=== PATIENT | female | born 1965 | race Caucasian/White ===

== ENCOUNTER 2016-03-22 10:00 | Emergency (ER) | payer MEDICAID ==
[~2016-03-22] VITALS: Ht 162.6 cm; Wt 90.7 kg
[2016-03-22 10:33] VITALS: BP 125/80
== END 2016-03-22 10:56 | disposition home or self-care (01) ==
LOC: ER 10:00
DX: J20.9 Acute bronchitis, unspecified (principal); M54.9 Dorsalgia, unspecified; G89.29 Other chronic pain; J45.909 Unspecified asthma, uncomplicated; F11.10 Opioid abuse, uncomplicated; F15.10 Other stimulant abuse, uncomplicated; F17.210 Nicotine dependence, cigarettes, uncomplicated; Z87.442 Personal history of urinary calculi

== ENCOUNTER 2016-05-10 11:27 | Inpatient (IN) | payer MEDICAID ==
[~2016-05-10] VITALS: Ht 157.5 cm; Wt 92.3 kg
[2016-05-10] MEDS ORDERED: SODIUM CHLORIDE 0.9% 500 ML IVB ONE (11:46)
[2016-05-10] MEDS ORDERED: PANTOPRAZOLE SODIUM 40 MG/10 ML VIAL IV STA (11:46)
[2016-05-10] MEDS ORDERED: PROCHLORPERAZINE EDISYLATE 5 MG/ML 2ML VIAL IV ONE (12:00)
[2016-05-10] MEDS ORDERED: MORPHINE SULFATE 4 MG/ML SYRG IV ONE (12:00)
[2016-05-10] MEDS ORDERED: SODIUM CHLORIDE 0.9% 1,000 ML IV ONE (13:30)
[2016-05-10 13:40] LABS: Basophils # (auto) 0 uL; Eosinophils # (auto) 0 uL; Hematocrit 52.6 % (36.0-46.0); Hemoglobin 17.2 g/dL (12.2-16.2); Lymphocytes # (auto) 0.8 uL; Lymphocytes % (auto) 6.2 % (10.0-50.0); Mean Corpuscular Hemoglobin 29.8 pg (28.0-32.0); Mean Corpuscular Hgb Conc. 32.7 g/dL (32.0-36.0); Mean Corpuscular Volume 91.3 fL (80.0-100.0); Mean Platelet Volume 7.8 fL (7.4-10.4); Monocytes # (auto) 0.3 uL; Monocytes % (auto) 2.4 % (0.0-12.0); Neutrophils # (auto) 11.2 uL; Neutrophils % (auto) 91.4 % (37.0-80.0); Platelet Count (auto) 253 10^3/uL (140-450); Red Cell Distribution Width 13.8 % (11.6-16.0); White Blood Cell 12.3 10^3/uL (4.4-10.8)
[2016-05-10 14:48] LABS: Urine Color Yellow (Yellow); Urine Glucose Normal (Normal); Urine Mucus FEW (None Seen); Urine Nitrite Negative (Negative); Urine RBC 3 /hpf (0 - 4); Urine Squamous Epithelial Cell FEW /hpf (<5)
[2016-05-10 15:02] LABS: Urine Blood 1+ /uL (Negative); Urine Ketone 2+ (Negative)
[2016-05-10 15:03] LABS: Urine Bilirubin POSITIVE (Negative)
[2016-05-10 15:10] LABS: BUN/Creatinine Ratio 16.8; Calcium 9.9 mg/dL (8.5-10.1); Potassium 3.4 mmol/L (3.5-5.1)
[2016-05-10 15:21] LABS: Bilirubin, Total 0.3 mg/dL (0.2-1.0); Total Protein 8.5 g/dL (6.4-8.2)
[2016-05-10] MEDS ORDERED: DEXTROSE (50%) 50ML SYRG IV PRN (15:45)
[2016-05-10] MEDS ORDERED: cloNIDine HCL 0.1 MG TAB PO PRN (15:45)
[2016-05-10] MEDS ORDERED: POTASSIUM CHL 10 Meq TABLET PO ONE (15:45)
[2016-05-10] MEDS ORDERED: cefTRIAXone 1GM/50ML D5W 50 ML IV ONE (15:45)
[2016-05-10] MEDS ORDERED: metroNIDAZOLE 500MG/100ML 100 ML IV ONE (15:45)
[2016-05-10] MEDS ORDERED: NITROGLYCERIN 0.4 MG SL TAB SL PRN (16:00)
[2016-05-10] MEDS ORDERED: MORPHINE SULF INJ 2 MG/ML SYRINGE 1ML IV PRN (16:00)
[2016-05-10] MEDS ORDERED: ACETAMINOPHEN 325 MG TAB PO PRN (16:00)
[2016-05-10] MEDS ORDERED: TEMAZEPAM 15 MG CAP PO PRN (16:00)
[2016-05-10 16:35] VITALS: BP 146/87
[2016-05-10] MEDS: MULTIPLE VITAMIN TAB PO SCH (16:52)
[2016-05-10] MEDS: METOPROLOL SUCCINATE XL 50 MG TAB PO SCH (16:52)
[2016-05-10] MEDS: SODIUM CHLORIDE 0.9% 1,000 ML IV SCH (16:53)
[2016-05-10] MEDS: ACCU-CHEK COMFORT CURVE STRIP VI SCH ×2 (16:53→22:00)
[2016-05-10] MEDS: InsuLIN REG 1unit/0.01ml Soln (100units/ml) SC SCH ×2 (16:54→22:00)
[2016-05-10] MEDS: MORPHINE SULF INJ 2 MG/ML SYRINGE 1ML IV PRN ×2 (17:10→22:59)
[2016-05-10] MEDS: ONDANSETRON HCL 4 MG/2 ML VIAL IV PRN ×2 (17:19→22:59)
[2016-05-10 17:22] VITALS: BP 146/87
[2016-05-10] MEDS ORDERED: MELA3TAB27 PO (18:55)
[2016-05-10] MEDS ORDERED: PAR20T PO (18:55)
[2016-05-10] MEDS ORDERED: METO25TA5 PO (18:55)
[2016-05-10] MEDS ORDERED: DIPH1TAB30 PO (18:55)
[2016-05-10] MEDS: ALBUTEROL SULF 2.5 MG/0.5ML(0.5%) NEB SOLN NEB SCH (19:55)
[2016-05-10 20:00] VITALS: BP 146/87
[2016-05-10 21:41] VITALS: BP 103/68
[2016-05-10] MEDS: metroNIDAZOLE 500MG/100ML 100 ML IV SCH (22:46)
[2016-05-10] MEDS: PARoxetine 20 MG TAB PO SCH (22:46)
[2016-05-11 05:12] VITALS: BP 136/80
[2016-05-11 06:17] LABS: Basophils # (auto) 0 uL; Basophils % (auto) 0.3 % (0.0-2.0); Eosinophils # (auto) 0 uL; Eosinophils % (auto) 0.1 % (0.0-7.0); Hematocrit 45.3 % (36.0-46.0); Hemoglobin 15.2 g/dL (12.2-16.2); Lymphocytes # (auto) 2.1 uL; Lymphocytes % (auto) 17.5 % (10.0-50.0); Mean Corpuscular Hemoglobin 30.3 pg (28.0-32.0); Mean Corpuscular Hgb Conc. 33.6 g/dL (32.0-36.0); Mean Corpuscular Volume 90.3 fL (80.0-100.0); Mean Platelet Volume 7.6 fL (7.4-10.4); Monocytes # (auto) 0.7 uL; Monocytes % (auto) 5.8 % (0.0-12.0); Neutrophils # (auto) 9.3 uL; Neutrophils % (auto) 76.3 % (37.0-80.0); Platelet Count (auto) 301 10^3/uL (140-450); Red Cell Distribution Width 14.5 % (11.6-16.0); White Blood Cell 12.2 10^3/uL (4.4-10.8)
[2016-05-11] MEDS: ALBUTEROL SULF 2.5 MG/0.5ML(0.5%) NEB SOLN NEB SCH ×3 (06:17→19:35)
[2016-05-11] MEDS: SODIUM CHLORIDE 0.9% 1,000 ML IV SCH ×3 (06:20→17:01)
[2016-05-11 06:26] LABS: Albumin 3.2 g/dL (3.4-5.0); Calcium 8.2 mg/dL (8.5-10.1); Potassium 3.2 mmol/L (3.5-5.1)
[2016-05-11 06:28] LABS: BUN/Creatinine Ratio 13.8
[2016-05-11 06:31] LABS: Bilirubin, Total 0.4 mg/dL (0.2-1.0); Total Protein 6.7 g/dL (6.4-8.2)
[2016-05-11] MEDS: ACCU-CHEK COMFORT CURVE STRIP VI SCH ×4 (06:38→22:28)
[2016-05-11] MEDS: metroNIDAZOLE 500MG/100ML 100 ML IV SCH ×3 (06:38→22:27)
[2016-05-11] MEDS: MORPHINE SULF INJ 2 MG/ML SYRINGE 1ML IV PRN ×3 (06:38→22:26)
[2016-05-11] MEDS: InsuLIN REG 1unit/0.01ml Soln (100units/ml) SC SCH ×4 (06:38→22:00)
[2016-05-11] MEDS: ONDANSETRON HCL 4 MG/2 ML VIAL IV PRN ×3 (06:38→22:26)
[2016-05-11] MEDS: HYDROcodone-ACET 10/325MG TAB PO PRN ×2 (08:25→14:55)
[2016-05-11 09:00] VITALS: BP 144/83
[2016-05-11] MEDS: METOPROLOL SUCCINATE XL 50 MG TAB PO SCH (09:48)
[2016-05-11] MEDS: FAMOTIDINE 20 MG TAB PO SCH ×2 (09:48→22:27)
[2016-05-11] MEDS: MULTIPLE VITAMIN TAB PO SCH (09:48)
[2016-05-11] MEDS: PARoxetine 20 MG TAB PO SCH ×2 (09:48→22:27)
[2016-05-11] MEDS: cefTRIAXone 1GM/50ML D5W 50 ML IV SCH (09:49)
[2016-05-11 13:00] VITALS: BP 116/86
[2016-05-11] MEDS ORDERED: POTASSIUM CHL 20 Meq TABLET PO ONE (13:00)
[2016-05-11] MEDS: DIPHENOXYLATE W/ATROPINE 2.5 MG TAB PO PRN (13:13)
[2016-05-11 17:00] VITALS: BP 109/69
[2016-05-11] MEDS: Boost Glucose Control 8 Ounces PO SCH (18:15)
[2016-05-11 20:00] VITALS: BP 108/65
[2016-05-11 22:21] VITALS: BP 108/65
[2016-05-12] MEDS: SODIUM CHLORIDE 0.9% 1,000 ML IV SCH ×3 (01:06→17:46)
[2016-05-12] MEDS: DIPHENOXYLATE W/ATROPINE 2.5 MG TAB PO PRN ×2 (01:13→10:17)
[2016-05-12 05:25] LABS: Basophils # (auto) 0 uL; Basophils % (auto) 0.4 % (0.0-2.0); Eosinophils # (auto) 0 uL; Eosinophils % (auto) 0.5 % (0.0-7.0); Hematocrit 40.6 % (36.0-46.0); Hemoglobin 13.6 g/dL (12.2-16.2); Lymphocytes # (auto) 2.2 uL; Lymphocytes % (auto) 28.8 % (10.0-50.0); Mean Corpuscular Hemoglobin 30.2 pg (28.0-32.0); Mean Corpuscular Hgb Conc. 33.5 g/dL (32.0-36.0); Mean Corpuscular Volume 90.1 fL (80.0-100.0); Mean Platelet Volume 7.3 fL (7.4-10.4); Monocytes # (auto) 0.5 uL; Monocytes % (auto) 6.6 % (0.0-12.0); Neutrophils # (auto) 4.8 uL; Neutrophils % (auto) 63.7 % (37.0-80.0); Platelet Count (auto) 237 10^3/uL (140-450); Red Cell Distribution Width 14.3 % (11.6-16.0); White Blood Cell 7.6 10^3/uL (4.4-10.8)
[2016-05-12 05:40] LABS: Albumin 2.8 g/dL (3.4-5.0); Potassium 3.8 mmol/L (3.5-5.1)
[2016-05-12 05:43] LABS: Bilirubin, Total 0.3 mg/dL (0.2-1.0); Total Protein 5.7 g/dL (6.4-8.2)
[2016-05-12] MEDS: metroNIDAZOLE 500MG/100ML 100 ML IV SCH ×3 (06:15→20:35)
[2016-05-12] MEDS: InsuLIN REG 1unit/0.01ml Soln (100units/ml) SC SCH ×4 (07:00→20:35)
[2016-05-12] MEDS: ACCU-CHEK COMFORT CURVE STRIP VI SCH ×4 (07:04→20:35)
[2016-05-12] MEDS: ALBUTEROL SULF 2.5 MG/0.5ML(0.5%) NEB SOLN NEB SCH ×4 (07:25→19:41)
[2016-05-12] MEDS: Boost Glucose Control 8 Ounces PO SCH ×3 (08:00→18:03)
[2016-05-12 09:00] VITALS: BP 97/60
[2016-05-12] MEDS: cefTRIAXone 1GM/50ML D5W 50 ML IV SCH (09:00)
[2016-05-12] MEDS: METOPROLOL SUCCINATE XL 50 MG TAB PO SCH (10:00)
[2016-05-12] MEDS: HYDROcodone-ACET 10/325MG TAB PO PRN ×3 (10:13→21:56)
[2016-05-12] MEDS: MULTIPLE VITAMIN TAB PO SCH (10:13)
[2016-05-12] MEDS: PARoxetine 20 MG TAB PO SCH ×2 (10:13→20:35)
[2016-05-12] MEDS: FAMOTIDINE 20 MG TAB PO SCH ×2 (10:14→20:35)
[2016-05-12 13:00] VITALS: BP 96/61
[2016-05-12 17:00] VITALS: BP 99/68
[2016-05-12 20:00] VITALS: BP 97/60
[2016-05-12 22:20] VITALS: BP 111/58
[2016-05-12 22:24] VITALS: BP 106/69
[2016-05-13] MEDS: SODIUM CHLORIDE 0.9% 1,000 ML IV SCH ×3 (02:06→10:26)
[2016-05-13] MEDS: metroNIDAZOLE 500MG/100ML 100 ML IV SCH ×2 (05:20→13:26)
[2016-05-13] MEDS: HYDROcodone-ACET 10/325MG TAB PO PRN ×2 (05:24→11:30)
[2016-05-13] MEDS: ACCU-CHEK COMFORT CURVE STRIP VI SCH ×2 (05:27→11:30)
[2016-05-13] MEDS: InsuLIN REG 1unit/0.01ml Soln (100units/ml) SC SCH ×2 (05:27→11:30)
[2016-05-13 05:31] VITALS: BP 116/69
[2016-05-13 05:35] LABS: Hemoglobin 14.4 g/dL (12.2-16.2)
[2016-05-13 05:45] LABS: Basophils # (auto) 0 uL; Basophils % (auto) 0.4 % (0.0-2.0); Eosinophils # (auto) 0.1 uL; Eosinophils % (auto) 1.9 % (0.0-7.0); Hematocrit 43.3 % (36.0-46.0); Lymphocytes % (auto) 26.7 % (10.0-50.0); Mean Corpuscular Hemoglobin 30.2 pg (28.0-32.0); Mean Corpuscular Hgb Conc. 33.2 g/dL (32.0-36.0); Mean Corpuscular Volume 90.9 fL (80.0-100.0); Mean Platelet Volume 7.4 fL (7.4-10.4); Monocytes # (auto) 0.5 uL; Monocytes % (auto) 6.4 % (0.0-12.0); Neutrophils # (auto) 4.8 uL; Neutrophils % (auto) 64.6 % (37.0-80.0); Platelet Count (auto) 233 10^3/uL (140-450); Red Cell Distribution Width 14.2 % (11.6-16.0); White Blood Cell 7.4 10^3/uL (4.4-10.8)
[2016-05-13 05:49] LABS: INR 1.1 (0.9-1.15); Prothrombin Time 11.3 sec (9.37-12.3)
[2016-05-13] MEDS: ALBUTEROL SULF 2.5 MG/0.5ML(0.5%) NEB SOLN NEB SCH ×2 (06:00→10:14)
[2016-05-13 06:18] LABS: BUN/Creatinine Ratio 6.1; Bilirubin, Total 0.4 mg/dL (0.2-1.0); Calcium 8.7 mg/dL (8.5-10.1); Magnesium 2.2 mg/dL (1.6-2.6); Potassium 3.5 mmol/L (3.5-5.1)
[2016-05-13 08:00] VITALS: BP 140/81
[2016-05-13] MEDS: Boost Glucose Control 8 Ounces PO SCH ×2 (08:00→11:30)
[2016-05-13 09:00] VITALS: BP 140/81
[2016-05-13] MEDS: cefTRIAXone 1GM/50ML D5W 50 ML IV SCH (09:06)
[2016-05-13] MEDS: FAMOTIDINE 20 MG TAB PO SCH (09:06)
[2016-05-13] MEDS: MULTIPLE VITAMIN TAB PO SCH (09:06)
[2016-05-13] MEDS: PARoxetine 20 MG TAB PO SCH (09:07)
[2016-05-13] MEDS: METOPROLOL SUCCINATE XL 50 MG TAB PO SCH (09:07)
[2016-05-13 13:00] VITALS: BP 126/82
[2016-05-13 16:39] VITALS: BP 140/81
[2016-05-13 17:00] VITALS: BP 118/78
== END 2016-05-13 18:17 | disposition home or self-care (01) | DRG 249 ==
LOC: ER 11:27 → EDBD 11:27 → TELE 11:28 → TELE-WESTW 16:42
PROVIDERS: ADMIT Internal Medicine; ATTEND Internal Medicine
DX: K52.9 Noninfective gastroenteritis and colitis, unspecified (principal); E46 Unspecified protein-calorie malnutrition; N20.0 Calculus of kidney; D75.1 Secondary polycythemia; J44.9 Chronic obstructive pulmonary disease, unspecified; E86.0 Dehydration; I12.9 Hypertensive chronic kidney disease with stage 1 through stage 4 chronic kidney disease, or unspecified chronic kidney disease; F32.9 Major depressive disorder, single episode, unspecified; R73.9 Hyperglycemia, unspecified; N18.2 Chronic kidney disease, stage 2 (mild); K57.30 Diverticulosis of large intestine without perforation or abscess without bleeding; E87.6 Hypokalemia; F17.210 Nicotine dependence, cigarettes, uncomplicated; J45.909 Unspecified asthma, uncomplicated; F15.90 Other stimulant use, unspecified, uncomplicated; Z90.49 Acquired absence of other specified parts of digestive tract; Z88.2 Allergy status to sulfonamides; Z90.710 Acquired absence of both cervix and uterus; Z90.5 Acquired absence of kidney; Z68.37 Body mass index [BMI] 37.0-37.9, adult
CPT/HCPCS: 36415; 71010; 71250; 74176; 80053; 80320; 81001; 82150; 82962; 83036; 83690; 83735; 85025; 85610; 87045; 87081; 87493; 87899; 93005; 94640; 96361; 96365; 96368; 96375; C9113; G0434; J0696; J1815; J2405; J3490

== ENCOUNTER 2016-09-06 17:56 | Emergency (ER) | payer MEDICAID ==
[~2016-09-06] VITALS: Ht 160 cm; Wt 86.2 kg
[~2016-09-06 17:56] MED LIST: DIPH1TAB30 PO; MELA3TAB27 PO; METO25TA5 PO; PAR20T PO
[2016-09-06] MEDS ORDERED: KETOROLAC TROMETH 60MG/2ML VIAL IM ONE (20:15)
[2016-09-06] MEDS ORDERED: HYDROcodone-ACET 10/325MG TAB PO ONE (20:15)
[2016-09-06 21:05] VITALS: BP 128/80
== END 2016-09-06 21:10 | disposition home or self-care (01) ==
LOC: EDBD 17:56 → ER 18:14
DX: G89.29 Other chronic pain (principal); M54.2 Cervicalgia; J44.9 Chronic obstructive pulmonary disease, unspecified; F17.210 Nicotine dependence, cigarettes, uncomplicated; F11.10 Opioid abuse, uncomplicated; F15.10 Other stimulant abuse, uncomplicated; Z88.2 Allergy status to sulfonamides
CPT/HCPCS: 96372; 99283; J1885

== ENCOUNTER 2017-02-09 12:46 | Emergency (ER) | payer MEDICAID ==
[~2017-02-09] VITALS: Ht 162.6 cm; Wt 90.7 kg
[2017-02-09 13:13] LABS: Urine Bilirubin Negative (Negative); Urine Blood Negative /uL (Negative); Urine Color Yellow (Yellow); Urine Glucose Normal (Normal); Urine Ketone Negative (Negative); Urine Nitrite Negative (Negative); Urine Urobilinogen Normal (Negative); Urine pH 5.5 (5.0-8.0)
[2017-02-09 13:24] LABS: Urine Mucus FEW (None Seen); Urine RBC 1 /hpf (0 - 4); Urine Squamous Epithelial Cell MODERATE /hpf (<5)
[2017-02-09 13:45] LABS: Basophils # (auto) 0 uL; Basophils % (auto) 0.3 % (0.0-2.0); Eosinophils # (auto) 0.2 uL; Hematocrit 48.3 % (36.0-46.0); Hemoglobin 16.7 g/dL (12.2-16.2); Lymphocytes # (auto) 2.6 uL; Lymphocytes % (auto) 31.3 % (10.0-50.0); Mean Corpuscular Hemoglobin 31.6 pg (28.0-32.0); Mean Corpuscular Hgb Conc. 34.6 g/dL (32.0-36.0); Mean Corpuscular Volume 91.5 fL (80.0-100.0); Mean Platelet Volume 7.5 fL (6.9-10.8); Monocytes # (auto) 0.5 uL; Monocytes % (auto) 6.2 % (0.0-12.0); Neutrophils # (auto) 5.1 uL; Neutrophils % (auto) 60.2 % (37.0-80.0); Nucleated Red Blood Cells % 0.1 %; Platelet Count (auto) 231 10^3/uL (140-450); White Blood Cell 8.4 10^3/uL (4.4-10.8)
[2017-02-09 13:58] LABS: Albumin 3.8 g/dL (3.4-5.0); BUN/Creatinine Ratio 13.4; Bilirubin, Total 0.3 mg/dL (0.2-1.0); Calcium 8.9 mg/dL (8.5-10.1); Potassium 3.9 mmol/L (3.5-5.1); Total Protein 7.7 g/dL (6.4-8.2)
[2017-02-09] MEDS ORDERED: SODIUM CHLORIDE 0.9% 1,000 ML IVB ONE (15:01)
[2017-02-09] MEDS ORDERED: ONDANSETRON HCL 4 MG/2 ML VIAL IV ONE (15:15)
[2017-02-09] MEDS ORDERED: KETOROLAC TROMETH 30 MG/ML 1ML VIAL IV ONE (15:15)
[2017-02-09 15:27] LABS: Amylase 64 U/L (25-115)
[2017-02-09 17:02] VITALS: BP 122/85
== END 2017-02-09 17:31 | disposition home or self-care (01) ==
LOC: ER 12:46
DX: R10.32 Left lower quadrant pain (principal); R19.7 Diarrhea, unspecified; R11.0 Nausea; J44.9 Chronic obstructive pulmonary disease, unspecified; F17.210 Nicotine dependence, cigarettes, uncomplicated; Z88.1 Allergy status to other antibiotic agents; Z87.442 Personal history of urinary calculi; Z90.49 Acquired absence of other specified parts of digestive tract; Z90.710 Acquired absence of both cervix and uterus; Z88.2 Allergy status to sulfonamides
CPT/HCPCS: 36415; 74176; 80053; 81001; 82150; 83690; 85025; 94761; 96374; 96375; 99285; J1885; J2405; J7030

== ENCOUNTER 2017-06-09 13:21 | Emergency (ER) | payer MEDICAID, OTHER ==
[~2017-06-09] VITALS: Ht 165.1 cm; Wt 90.7 kg
[2017-06-09 13:47] LABS: Basophils # (auto) 0 uL; Basophils % (auto) 0.6 % (0.0-2.0); Eosinophils # (auto) 0.2 uL; Eosinophils % (auto) 1.9 % (0.0-7.0); Hematocrit 45.1 % (36.0-46.0); Hemoglobin 15.4 g/dL (12.2-16.2); Lymphocytes # (auto) 2.4 uL; Lymphocytes % (auto) 28.2 % (10.0-50.0); Mean Corpuscular Hemoglobin 30.6 pg (28.0-32.0); Mean Corpuscular Hgb Conc. 34.1 g/dL (32.0-36.0); Mean Corpuscular Volume 89.7 fL (80.0-100.0); Monocytes # (auto) 0.5 uL; Monocytes % (auto) 5.6 % (0.0-12.0); Neutrophils # (auto) 5.3 uL; Neutrophils % (auto) 63.7 % (37.0-80.0); Nucleated Red Blood Cells % 0.2 %; Platelet Count (auto) 215 10^3/uL (140-450); Red Blood Cells 5.03 10^6/uL (4.0-5.20); White Blood Cell 8.4 10^3/uL (4.4-10.8)
[2017-06-09 14:11] LABS: Alanine Aminotransferase 35 U/L (13-56); Albumin 3.7 g/dL (3.4-5.0); Alkaline Phosphatase 79 U/L (45-117); Anion Gap 7 (5-15); Aspartate Aminotransferase 19 U/L (15-37); BUN/Creatinine Ratio 10.9; Bilirubin, Total 0.3 mg/dL (0.2-1.0); Blood Alcohol < 3.0 mg/dL (0-5); Blood Urea Nitrogen 11 mg/dL (7-18); Carbon Dioxide 25 mmol/L (21-32); Chloride 108 mmol/L (98-107); GFR African American 75 mL/min; GFR Non-African American 62 mL/min; Glucose 93 mg/dL (74-106); Potassium 4.2 mmol/L (3.5-5.1); Sodium 140 mmol/L (136-145); Total Protein 7.1 g/dL (6.4-8.2)
[2017-06-09 14:13] LABS: Acetaminophen 6.7 ug/mL (10-30); Salicylate 3.9 mg/dL (2.8-20.0)
[2017-06-10 08:13] LABS: Urine Bacteria FEW /hpf (None Seen); Urine Blood Negative /uL (Negative); Urine Mucus FEW (None Seen); Urine Specific Gravity 1.024 (1.001-1.035); Urine WBC 4 /hpf (0 - 5)
[2017-06-10 08:24] LABS: Alcohol, Urine < 3.0 mg/dL (0-5); Amphetamine Screen, Urine POSITIVE (NEGATIVE); Barbiturate Scree,Urine NEGATIVE (NEGATIVE); Benzodiazephine Screen, Urine NEGATIVE (NEGATIVE); Cannabinoid Screen, Urine NEGATIVE (NEGATIVE); Cocaine Screen, Urine NEGATIVE (NEGATIVE); Opiate Scree,Urine NEGATIVE (NEGATIVE); Phencyclidine Screen, Urine NEGATIVE (NEGATIVE)
[2017-06-11] MEDS ORDERED: diphenhdrAMINE HCL 25 MG CAP PO ONE (09:00)
[2017-06-11] MEDS: PARoxetine 20 MG TAB PO SCH (22:50)
[2017-06-12] MEDS ORDERED: ACETAMINOPHEN 500 MG TAB PO ONE (09:45)
[2017-06-12] MEDS: PARoxetine 20 MG TAB PO SCH ×2 (09:51→21:47)
[2017-06-12] MEDS: METOPROLOL SUCCINATE XL 50 MG TAB PO SCH ×2 (09:52→09:53)
[2017-06-12] MEDS ORDERED: PARoxetine 20 MG TAB ONE (21:36)
[2017-06-12 23:45] VITALS: BP 102/65
== END 2017-06-13 00:05 | disposition short-term general hospital (02) ==
LOC: EDBD 13:21 → ER 13:21
DX: R45.851 Suicidal ideations (principal); F15.10 Other stimulant abuse, uncomplicated; J44.9 Chronic obstructive pulmonary disease, unspecified; F41.9 Anxiety disorder, unspecified; F20.9 Schizophrenia, unspecified; F17.210 Nicotine dependence, cigarettes, uncomplicated; F12.10 Cannabis abuse, uncomplicated; Z90.49 Acquired absence of other specified parts of digestive tract; Z90.710 Acquired absence of both cervix and uterus; Z90.89 Acquired absence of other organs
CPT/HCPCS: 36415; 71046; 80053; 80307; 80320; 80329; 81001; 85025; 93005

== ENCOUNTER 2017-06-18 09:23 | Emergency (ER) | payer OTHER ==
[~2017-06-18] VITALS: Ht 160 cm; Wt 86.2 kg
[2017-06-18 11:00] VITALS: BP 139/98
[2017-06-18] MEDS ORDERED: LORazepam 0.5 MG TAB PO ONE (11:00)
== END 2017-06-18 11:32 | disposition home or self-care (01) ==
LOC: EDBD 09:23 → ER 09:23
DX: F41.9 Anxiety disorder, unspecified (principal); J44.9 Chronic obstructive pulmonary disease, unspecified; F17.210 Nicotine dependence, cigarettes, uncomplicated; F12.10 Cannabis abuse, uncomplicated; F15.10 Other stimulant abuse, uncomplicated; Z90.49 Acquired absence of other specified parts of digestive tract; Z90.89 Acquired absence of other organs; Z90.710 Acquired absence of both cervix and uterus; Z88.2 Allergy status to sulfonamides
CPT/HCPCS: 71046; 94761

== ENCOUNTER → 2017-10-19 | Outpatient (CLI) | payer MEDICAID, OTHER ==
[~2017-10-19] VITALS: Ht 160 cm; Wt 86.6 kg
[~2017-10-19] MED LIST changes: +ACET-6 PO; +ALBU1AER4 IN; +DIPH2.5T73 PO; +FURO20TA3 PO; +MIRT30TA OR; +MULT-228 PO; +RISP1TAB63 PO
[2017-10-19 09:59] LABS: Basophils # (auto) 0.1 uL; Basophils % (auto) 0.7 % (0.0-2.0); Eosinophils # (auto) 0.2 uL; Eosinophils % (auto) 2.7 % (0.0-7.0); Hematocrit 48.9 % (36.0-46.0); Hemoglobin 16.5 g/dL (12.2-16.2); Lymphocytes # (auto) 2.2 uL; Lymphocytes % (auto) 27.9 % (10.0-50.0); Mean Corpuscular Hemoglobin 30.4 pg (28.0-32.0); Mean Corpuscular Hgb Conc. 33.8 g/dL (32.0-36.0); Mean Corpuscular Volume 89.9 fL (80.0-100.0); Monocytes # (auto) 0.5 uL; Neutrophils # (auto) 4.9 uL; Neutrophils % (auto) 62.7 % (37.0-80.0); Nucleated Red Blood Cells % 0.1 %; Platelet Count (auto) 219 10^3/uL (140-450); Red Blood Cells 5.44 10^6/uL (4.0-5.20); Red Cell Distribution Width 13.6 % (11.8-14.3); White Blood Cell 7.8 10^3/uL (4.4-10.8)
[2017-10-19 10:02] LABS: Urine Bacteria FEW /hpf (None Seen); Urine Blood Negative /uL (Negative); Urine Mucus FEW (None Seen); Urine Specific Gravity 1.008 (1.001-1.035); Urine WBC 1 /hpf (0 - 5)
[2017-10-19 10:13] LABS: INR 0.9 (0.9-1.15); Partial Thromboplastin Time 25.2 sec (23.78-33.04); Prothrombin Time 9.7 sec (9.27-12.13)
[2017-10-19 10:14] LABS: Albumin 3.7 g/dL (3.4-5.0); BUN/Creatinine Ratio 19.2; Calcium 9.1 mg/dL (8.5-10.1); Potassium 4.1 mmol/L (3.5-5.1)
[2017-10-19 10:17] LABS: Bilirubin, Total 0.3 mg/dL (0.2-1.0); Total Protein 7.7 g/dL (6.4-8.2)
== END | disposition home or self-care (01) ==
LOC: LAB 08:00 → EDSTATUS 10-23 10:45
PROVIDERS: ATTEND Internal Medicine Gastroenterology
DX: R19.7 Diarrhea, unspecified (principal); R10.32 Left lower quadrant pain
CPT/HCPCS: 36415; 80053; 81001; 84702; 85025; 85610; 85730

== ENCOUNTER 2018-09-08 09:07 | Emergency (ER) | payer MEDICAID ==
[~2018-09-08] VITALS: Ht 165.1 cm; Wt 101.6 kg
[~2018-09-08 09:07] MED LIST changes: -DIPH1TAB30 PO; -MELA3TAB27 PO; -PAR20T PO
[2018-09-08 09:15] VITALS: BP 118/76
== END 2018-09-08 11:18 | disposition home or self-care (01) ==
LOC: ER 09:10
DX: N39.0 Urinary tract infection, site not specified (principal); K76.0 Fatty (change of) liver, not elsewhere classified; K57.30 Diverticulosis of large intestine without perforation or abscess without bleeding; Z88.2 Allergy status to sulfonamides; Z79.899 Other long term (current) drug therapy
CPT/HCPCS: 74176; 81002; 81025

== ENCOUNTER 2019-01-20 07:34 | Inpatient (IN) | payer MEDICAID ==
[~2019-01-20] VITALS: Ht 160 cm; Wt 97.5 kg
[2019-01-20] MEDS ORDERED: IPRATROPIUM BROM 0.5 MG/2.5ML INH SOL NEB ONE (08:15)
[2019-01-20] MEDS ORDERED: ALBUTEROL SULF 2.5 MG/0.5ML(0.5%) NEB SOLN NEB ONE (08:15)
[2019-01-20] MEDS ORDERED: SODIUM CHLORIDE 0.9% 500 ML IVB ONE (08:32)
[2019-01-20] MEDS ORDERED: SODIUM CHLORIDE 0.9% 1,000 ML IV ONE (08:32)
[2019-01-20 08:55] LABS: White Blood Cell 12.2 10^3/uL (4.4-10.8)
[2019-01-20 08:57] LABS: Hematocrit 53.6 % (36.0-46.0); Hemoglobin 18.5 g/dL (12.2-16.2); Mean Corpuscular Hemoglobin 31.8 pg (28.0-32.0); Mean Corpuscular Hgb Conc. 34.6 g/dL (32.0-36.0); Platelet Count (auto) 229 10^3/uL (140-450); Red Blood Cells 5.83 10^6/uL (4.0-5.20); Red Cell Distribution Width 15.9 % (11.8-14.3)
[2019-01-20 09:04] LABS: Basophils % (manual) 0 (0.0-2.0); Blast Cells 0; Eosinophils % (manual) 0 (0-7); Myelocytes % 0; Promyelocytes % 0; Reactive Lymphocytes 0
[2019-01-20 09:23] LABS: Albumin 3.5 g/dL (3.4-5.0); BUN/Creatinine Ratio 27.6; Bilirubin, Total 0.4 mg/dL (0.2-1.0); Calcium 8.8 mg/dL (8.5-10.1); Magnesium 2.6 mg/dL (1.6-2.6); Potassium 5.3 mmol/L (3.5-5.1); Total Protein 7.4 g/dL (6.4-8.2)
[2019-01-20 11:11] LABS: Acetaminophen < 2.0 ug/mL (10-30); Salicylate 6.3 mg/dL (2.8-20.0)
[2019-01-20 13:04] LABS: Band Neutrophils % (manual) 2; Lymphocytes % (manual) 10 (10.0-50.0); Metamyelocytes % 2; Monocytes % (manual) 10 (0-12)
[2019-01-20 13:32] LABS: Urine Bacteria FEW /hpf (None Seen); Urine Blood Negative /uL (Negative); Urine Specific Gravity 1.012 (1.001-1.035); Urine WBC 2 /hpf (0 - 5)
[2019-01-20 13:55] LABS: Alcohol, Urine < 3.0 mg/dL (0-5); Amphetamine Screen, Urine NEGATIVE (NEGATIVE); Barbiturate Scree,Urine NEGATIVE (NEGATIVE); Benzodiazephine Screen, Urine NEGATIVE (NEGATIVE); Cannabinoid Screen, Urine NEGATIVE (NEGATIVE); Cocaine Screen, Urine NEGATIVE (NEGATIVE); Opiate Scree,Urine NEGATIVE (NEGATIVE)
[2019-01-20 14:00] LABS: Phencyclidine Screen, Urine NEGATIVE (NEGATIVE)
[2019-01-20] MEDS ORDERED: DEXTROSE (50%) 50ML SYRG IV PRN (14:30)
[2019-01-20] MEDS ORDERED: LACTULOSE 20Gm/30ML SOLN PO PRN ×2 (14:30)
[2019-01-20] MEDS ORDERED: traMADol HCL 50 MG TAB PO PRN (14:30)
[2019-01-20] MEDS ORDERED: PROMETHAZINE HCL 25 MG/ML 1ML IV PRN (14:30)
[2019-01-20] MEDS ORDERED: SODIUM ZIRCONIUM CYCL 10 GM PAK PO ONE (14:30)
[2019-01-20] MEDS ORDERED: MORPHINE SULF INJ 2 MG/ML SYRINGE 1ML IV PRN (14:30)
[2019-01-20] MEDS ORDERED: TEMAZEPAM 15 MG CAP PO PRN (14:30)
[2019-01-20] MEDS ORDERED: NITROGLYCERIN 0.4 MG SL TAB SL PRN (14:30)
[2019-01-20] MEDS ORDERED: ALBUTEROL SULF 2.5 MG/0.5ML(0.5%) NEB SOLN NEB PRN (14:30)
[2019-01-20 15:11] VITALS: BP 151/91
[2019-01-20] MEDS ORDERED: ASPirin 81 mg TAB PO SCH (15:15)
[2019-01-20] MEDS ORDERED: ASPirin 81 mg TAB PO ONE (15:15)
--- NOTE | 2019-01-20 16:30 | NUR ---
PATIENT RESTING IN BED. ARRIVED TO FLOOR AND ORIENTED TO J[facility] MANUEL. ORIENTED TO HOSPITAL ROOM. PATIENT RESTING IN BED RESPIRATIONS EVEN AND UNLABORED. TELE MONITOR #[id number]. MEDICATIONS SENT DOWN TO PHARMACY. PATIENT AGREEABLE AND SIGNED APPROPRIATE PAPER. PATIENT PLACED IN SITTER BED. PATIENT UPDATED ON POC. BED IN LOWEST LOCKED POSITION WITH CALL LIGHT WITHIN REACH. WILL CONTINUE CARE.
[2019-01-20 16:48] VITALS: BP 128/73
[2019-01-20] MEDS: ACCU-CHEK COMFORT CURVE STRIP VI SCH ×2 (17:00→23:04)
[2019-01-20] MEDS: InsuLIN REG 1unit/0.01ml Soln (100units/ml) SC SCH ×2 (17:00→22:00)
[2019-01-20] MEDS: risperiDONE 1 MG TAB PO SCH (18:10)
[2019-01-20] MEDS ORDERED: RISP2TAB62 PO (18:40)
[2019-01-20] MEDS ORDERED: GABA300C10 PO (18:42)
[2019-01-20] MEDS ORDERED: ATOR20TA PO (18:42)
[2019-01-20] MEDS ORDERED: POTA-220 PO (18:45)
[2019-01-20] MEDS ORDERED: TRAM50TA2 PO (18:45)
[2019-01-20] MEDS ORDERED: FURO40TA4 PO (18:45)
[2019-01-20] MEDS ORDERED: METF-370 PO (18:45)
[2019-01-20] MEDS ORDERED: CARV3.1240 PO (18:45)
[2019-01-20] MEDS: ALBUTEROL SULF 2.5 MG/0.5ML(0.5%) NEB SOLN NEB SCH (18:47)
[2019-01-20] MEDS: IPRATROPIUM BROM 0.5 MG/2.5ML INH SOL NEB SCH (18:47)
--- NOTE | 2019-01-20 20:09 | NUR ---
received pt from day rn poc reviewed
--- NOTE | 2019-01-20 21:58 | NUR ---
poison control center called updated on pts labs
[2019-01-20] MEDS: metroNIDAZOLE 500 MG TAB PO SCH (22:00)
[2019-01-20] MEDS ORDERED: ATORVASTATIN 20 MG TAB PO SCH (22:00)
[2019-01-20] MEDS: GABAPENTIN 300 MG CAP PO SCH (23:01)
[2019-01-20] MEDS: MIRTAZAPINE 30 MG TAB PO SCH (23:01)
[2019-01-20] MEDS: CARVEDILOL 3.125 MG TAB PO SCH (23:03)
[2019-01-20] MEDS: SODIUM CHLOR 0.9% PF (SALINE LOCK) 10ML VIAL/SYR IV SCH (23:04)
--- NOTE | 2019-01-20 23:58 | NUR ---
resting quietly at this time resp even and unlaboared, denies discomfort, no sitter at bedside, pt shows no s/s of anxiety all questions and concerns addressed to pt
[2019-01-21] MEDS: IPRATROPIUM BROM 0.5 MG/2.5ML INH SOL NEB SCH ×4 (00:38→18:42)
[2019-01-21] MEDS: ALBUTEROL SULF 2.5 MG/0.5ML(0.5%) NEB SOLN NEB SCH ×4 (00:38→18:42)
[2019-01-21 05:05] VITALS: BP 103/67
[2019-01-21 06:09] LABS: Basophils # (auto) 0.1 uL; Eosinophils # (auto) 0 uL; Eosinophils % (auto) 0.1 % (0.0-7.0); Hematocrit 49.7 % (36.0-46.0); Lymphocytes # (auto) 1.4 uL; Lymphocytes % (auto) 15.4 % (10.0-50.0); Mean Corpuscular Hemoglobin 31.4 pg (28.0-32.0); Mean Corpuscular Hgb Conc. 34.2 g/dL (32.0-36.0); Mean Corpuscular Volume 91.8 fL (80.0-100.0); Monocytes # (auto) 0.6 uL; Monocytes % (auto) 6.6 % (0.0-12.0); Neutrophils # (auto) 7.1 uL; Neutrophils % (auto) 76.9 % (37.0-80.0); Nucleated Red Blood Cells % 0.3 %; Platelet Count (auto) 184 10^3/uL (140-450); Red Blood Cells 5.42 10^6/uL (4.0-5.20); Red Cell Distribution Width 16.2 % (11.8-14.3); White Blood Cell 9.2 10^3/uL (4.4-10.8)
--- NOTE | 2019-01-21 06:15 | NUR ---
awoke no s/s of distress, follows instructions, resp even and unlabored,call light within reach
[2019-01-21 06:24] LABS: Acetaminophen < 2.0 ug/mL (10-30); Salicylate 5.7 mg/dL (2.8-20.0)
[2019-01-21 06:27] LABS: Potassium 4.4 mmol/L (3.5-5.1)
[2019-01-21] MEDS: SODIUM CHLOR 0.9% PF (SALINE LOCK) 10ML VIAL/SYR IV SCH ×3 (06:29→23:32)
[2019-01-21] MEDS: GABAPENTIN 300 MG CAP PO SCH ×3 (06:30→23:29)
[2019-01-21] MEDS: metroNIDAZOLE 500 MG TAB PO SCH ×3 (06:30→23:29)
[2019-01-21] MEDS: ACCU-CHEK COMFORT CURVE STRIP VI SCH ×4 (06:30→23:41)
[2019-01-21] MEDS: InsuLIN REG 1unit/0.01ml Soln (100units/ml) SC SCH ×4 (06:31→22:00)
[2019-01-21 06:39] LABS: Albumin 3.1 g/dL (3.4-5.0); BUN/Creatinine Ratio 33.3; Bilirubin, Total 0.3 mg/dL (0.2-1.0); Calcium 8.3 mg/dL (8.5-10.1); Total Protein 6.7 g/dL (6.4-8.2)
--- NOTE | 2019-01-21 07:14 | NUR ---
report given to am nurse poc reviewed
--- NOTE | 2019-01-21 07:50 | NUR ---
Patient in bed, asleep, no acute distress noted.
--- NOTE | 2019-01-21 08:45 | NUR ---
Patient not in the room.
--- NOTE | 2019-01-21 08:48 | NUR ---
Paged the patient overhead to come back to her room.
--- NOTE | 2019-01-21 08:57 | NUR ---
Patient is back in the room, no socks, nor shoes, oriented to self only. Called Charge Nurse Ricky that patient needs a sitter.
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
[2019-01-21] MEDS: ENOXAPARIN SOD 40 MG/0.4 ML SYRINGE SC SCH (09:32)
[2019-01-21] MEDS: ENALAPRIL MALEATE 2.5 MG TAB PO SCH (09:33)
[2019-01-21] MEDS: CARVEDILOL 3.125 MG TAB PO SCH ×2 (09:34→23:32)
[2019-01-21] MEDS: POTASSIUM CHL 20 Meq TABLET PO SCH (09:34)
[2019-01-21] MEDS: ASPirin 81 mg TAB PO SCH (09:34)
[2019-01-21] MEDS: PANTOPRAZOLE 40 MG TAB PO SCH (09:34)
[2019-01-21] MEDS: ACETAMINOPHEN 500 MG TAB PO PRN (09:34)
--- NOTE | 2019-01-21 09:34 | NUR ---
Tylenol PO given for pain level at 9/10, as stated by the patient.
[2019-01-21] MEDS: LEVOFLOXACIN 500MG 100 ML IV SCH (09:35)
[2019-01-21] MEDS ORDERED: ASPirin 81 mg TAB PO SCH (10:00)
[2019-01-21] MEDS ORDERED: FUROSEMIDE 40 MG/4 ML VIAL IV SCH (10:00)
--- NOTE | 2019-01-21 11:40 | NUR ---
JULIO Alamo called that patient will have Stress Test tomorrow, Monday.
--- NOTE | 2019-01-21 11:40 | NUR ---
Patient needs a sitter. Charge Nurse Ricky waiting for patient/s to be discharged fo a sitter room to be available.
--- NOTE | 2019-01-21 12:10 | NUR ---
Patient asleep at this time.
--- NOTE | 2019-01-21 12:19 | NUR ---
Laurie from Poison Control called.
--- NOTE | 2019-01-21 12:30 | NUR ---
Patient sitting on bed, eating lunch.
--- NOTE | 2019-01-21 14:58 | NUR ---
Dr. Watkins called back. made aware patient could not be transferred to a sitter room at [address] because the patient at [address] yells all the time when awake. Waiting for another sitter room to be available.
--- NOTE | 2019-01-21 14:58 | NUR ---
Dr. Watkins made aware if she will order a medication for anxiety.
--- NOTE | 2019-01-21 15:03 | NUR ---
Patient off unit, to Stress Lab at this time.
--- NOTE | 2019-01-21 15:50 | NUR ---
[place] sandwich and cranberry juice provided as requested by the patient.
[2019-01-21 17:00] VITALS: BP 123/75
--- NOTE | 2019-01-21 17:05 | NUR ---
Patient asleep at this time. Snoring noted.
[2019-01-21] MEDS: risperiDONE 1 MG TAB PO SCH (17:19)
--- NOTE | 2019-01-21 19:00 | NUR ---
Endorse to strike out machine operator RN patient needs another IV line for Stress Test tomorrow, Monday.
--- NOTE | 2019-01-21 19:30 | NUR ---
Opening Shift Note Assumed care of patient. Patient is awake and alert. No S/S of distress/SOB or pain. Instructed on POC and to call for assist PRN, will continue to monitor for changes. Bed locked in lowest position and bed rails up x2.
[2019-01-21 22:20] VITALS: BP 131/75
--- NOTE | 2019-01-21 23:20 | NUR ---
Tele Psych Consult placed
[2019-01-21] MEDS: MIRTAZAPINE 30 MG TAB PO SCH (23:30)
[2019-01-21] MEDS: ATORVASTATIN 20 MG TAB PO SCH (23:30)
--- NOTE | 2019-01-21 23:45 | NUR ---
Tele Psychiatrist called, asked a few question about the patient and determined that it could wait until the morning for the consultation. Will continue to monitor patient Q1 hour and PRN
[2019-01-22] MEDS: IPRATROPIUM BROM 0.5 MG/2.5ML INH SOL NEB SCH ×4 (00:32→19:46)
[2019-01-22] MEDS: ALBUTEROL SULF 2.5 MG/0.5ML(0.5%) NEB SOLN NEB SCH ×4 (00:32→19:46)
[2019-01-22 04:56] VITALS: BP 121/87
[2019-01-22 06:13] LABS: Basophils # (auto) 0.1 uL; Basophils % (auto) 0.5 % (0.0-2.0); Eosinophils # (auto) 0.1 uL; Eosinophils % (auto) 0.6 % (0.0-7.0); Hematocrit 52.7 % (36.0-46.0); Hemoglobin 17.9 g/dL (12.2-16.2); Lymphocytes # (auto) 1.6 uL; Lymphocytes % (auto) 15.2 % (10.0-50.0); Mean Corpuscular Hemoglobin 31.5 pg (28.0-32.0); Mean Corpuscular Hgb Conc. 33.9 g/dL (32.0-36.0); Mean Corpuscular Volume 92.8 fL (80.0-100.0); Monocytes # (auto) 0.9 uL; Monocytes % (auto) 8.5 % (0.0-12.0); Neutrophils # (auto) 7.9 uL; Neutrophils % (auto) 75.2 % (37.0-80.0); Nucleated Red Blood Cells % 0.3 %; Platelet Count (auto) 186 10^3/uL (140-450); Red Blood Cells 5.68 10^6/uL (4.0-5.20); White Blood Cell 10.4 10^3/uL (4.4-10.8)
[2019-01-22 06:22] LABS: Calcium 8.4 mg/dL (8.5-10.1); Magnesium 2.3 mg/dL (1.6-2.6); Potassium 4.8 mmol/L (3.5-5.1)
--- NOTE | 2019-01-22 06:24 | NUR ---
IV insertion IV access obtained, via clean sterile technique. IV secured properly. No trauma to site. Patient tolerated well.
[2019-01-22 06:30] LABS: BUN/Creatinine Ratio 28.2
[2019-01-22] MEDS: GABAPENTIN 300 MG CAP PO SCH ×3 (06:43→21:39)
[2019-01-22] MEDS: metroNIDAZOLE 500 MG TAB PO SCH (06:43)
[2019-01-22] MEDS: InsuLIN REG 1unit/0.01ml Soln (100units/ml) SC SCH ×5 (06:44→21:39)
[2019-01-22] MEDS: SODIUM CHLOR 0.9% PF (SALINE LOCK) 10ML VIAL/SYR IV SCH ×3 (06:44→21:38)
[2019-01-22] MEDS: ACCU-CHEK COMFORT CURVE STRIP VI SCH ×4 (06:44→21:40)
--- NOTE | 2019-01-22 07:35 | NUR ---
Patient in bed, asleep. No acute distress noted.
--- NOTE | 2019-01-22 08:05 | NUR ---
New request for Tele Psych Consult started. Tele Psych monitor set up in the patient's room. Patient stated they started the consult last night but the doctor did not call again.
--- NOTE | 2019-01-22 08:15 | NUR ---
Called [facility] ([phone]). Spoke with Devorah regarding follow up Tele Psych Consult. Devorah to test the Tele Psych Monitor in the patient's room. Patient said she got a call that the doctor will call back.
[2019-01-22] MEDS ORDERED: ADENOSINE 84 MG in GIVE UN-DILUTED 0 ML IV STA (08:24)
[2019-01-22 09:00] VITALS: BP 120/83
--- NOTE | 2019-01-22 09:20 | NUR ---
Patient off unit. At Stress Lab at this time for Cardiolite Multiple.
[2019-01-22 09:26] VITALS: BP 113/73
--- NOTE | 2019-01-22 09:50 | NUR ---
Dr. Watkins came over. made aware patient off unit. Patient at Stress Test at this time. Tele Psych Consult started but unknown yet if the psychiatrist called back. Will follow up.
--- NOTE | 2019-01-22 10:25 | NUR ---
Patient back to room.
--- NOTE | 2019-01-22 10:30 | NUR ---
Called Stress Lab. Patient done with Stress Test.
[2019-01-22] MEDS: LEVOFLOXACIN 500MG 100 ML IV SCH (10:36)
[2019-01-22] MEDS: CARVEDILOL 3.125 MG TAB PO SCH ×2 (10:36→21:41)
[2019-01-22] MEDS: ENOXAPARIN SOD 40 MG/0.4 ML SYRINGE SC SCH (10:37)
[2019-01-22] MEDS: FUROSEMIDE 40 MG TAB PO SCH (10:37)
[2019-01-22] MEDS: ENALAPRIL MALEATE 2.5 MG TAB PO SCH (10:37)
[2019-01-22] MEDS: POTASSIUM CHL 20 Meq TABLET PO SCH (10:37)
[2019-01-22] MEDS: PANTOPRAZOLE 40 MG TAB PO SCH (10:37)
[2019-01-22] MEDS: ASPirin 81 mg TAB PO SCH (10:40)
--- NOTE | 2019-01-22 10:40 | NUR ---
Received a call from Pharmacist that there's no more indication for antibiotic so they will discontinue the Levaquin. Levaquin not given. Will return medication to [facility].
--- NOTE | 2019-01-22 10:56 | NUR ---
Called [facility] ([phone]) again to follow up if the Tele Psych Consult is done. Spoke with Jie. Jie said the psychiatrist has a lot of patients, doctor will call back when available. Jie made aware the last call to Tele Psych for follow up is at 0815 am today butthe psychiatrist has not called the patient yet via Tele Monitor.
--- NOTE | 2019-01-22 11:00 | NUR ---
Charge Nurse Ivanna made aware that Tele Psych Consult is not done yet because the psychiatrist has not called back since the Tele psych monitor has been set up and follow up calls has been started since 8:15 am today. Tele psych monitor returned to [address] with JAMES Palafox's patient for Tele psych consult. Will borrow the monitor after the tele psych consult is done with patient at [address].
--- NOTE | 2019-01-22 12:18 | NUR ---
Received a call back from [employer] that the doctor will call for the Tele Psych Consult. Tele Psych Consult Tech made aware the monitor is at another patient's room at this time also waiting for a Tele Psych Consult.
--- NOTE | 2019-01-22 12:35 | NUR ---
Accu check = 142 mg/dl. Patient refused Insulin R 2 units, insisted she takes Insulin only when her blood sugar is over 200.
--- NOTE | 2019-01-22 12:55 | NUR ---
[facility] called back that they will test the monitor for the Tele Psych Consult. Monitor in the room facing the patient in bed.
[2019-01-22 13:00] VITALS: BP 114/79
--- NOTE | 2019-01-22 14:00 | NUR ---
Patient stated she talked to the psychiatrist on the Tele Monitor.
--- NOTE | 2019-01-22 15:58 | NUR ---
Called [facility] to follow up the Consult Recommendations after Tele Psych Consult today. Tuan from [facility] to send the copy of recommendation via Fax.
--- NOTE | 2019-01-22 16:00 | NUR ---
Filter Tip Catcher of Tele Psych Consult recommendations placed in the patient's chart. Addendum: 01/22/19 at 1608 by Carolyn White RN Copy
--- NOTE | 2019-01-22 16:01 | NUR ---
Paged Dr. Watkins.
[2019-01-22 16:58] VITALS: BP 111/86
[2019-01-22] MEDS: risperiDONE 1 MG TAB PO SCH (17:12)
[2019-01-22] MEDS: ACETAMINOPHEN 500 MG TAB PO PRN (18:20)
--- NOTE | 2019-01-22 18:20 | NUR ---
Tylenol PO given for pain as ordered.
--- NOTE | 2019-01-22 18:48 | NUR ---
JULIO Alamo came over, stated patient had positive Stress Test, ordered Left Heart Cath tomorrow, Monday.
--- NOTE | 2019-01-22 20:00 | NUR ---
RECEIVE IN BED IS AWARE SHE WILL HAVE HEARTCATH BUT IS NOT READY TO SIGN CONSENT IS AWARE OF NPOAFTER MIDNIGHT
[2019-01-22] MEDS: ATORVASTATIN 20 MG TAB PO SCH (21:39)
[2019-01-22] MEDS: MIRTAZAPINE 30 MG TAB PO SCH (21:39)
[2019-01-22 21:52] VITALS: BP 100/62
[2019-01-23] MEDS: ALBUTEROL SULF 2.5 MG/0.5ML(0.5%) NEB SOLN NEB SCH ×4 (00:56→18:19)
[2019-01-23] MEDS: IPRATROPIUM BROM 0.5 MG/2.5ML INH SOL NEB SCH ×4 (00:56→18:20)
--- NOTE | 2019-01-23 01:51 | NUR ---
BILATERAL GROIN SHAVED COMPLETE BATH & LINEN CHANGE DONE
[2019-01-23 05:25] VITALS: BP 112/73
[2019-01-23] MEDS: SODIUM CHLOR 0.9% PF (SALINE LOCK) 10ML VIAL/SYR IV SCH ×2 (06:00→14:00)
[2019-01-23] MEDS: GABAPENTIN 300 MG CAP PO SCH ×3 (06:14→22:21)
[2019-01-23] MEDS: ACCU-CHEK COMFORT CURVE STRIP VI SCH ×3 (06:15→16:28)
[2019-01-23] MEDS: InsuLIN REG 1unit/0.01ml Soln (100units/ml) SC SCH ×4 (06:15→22:00)
[2019-01-23 06:44] LABS: Basophils # (auto) 0 uL; Basophils % (auto) 0.3 % (0.0-2.0); Eosinophils # (auto) 0 uL; Lymphocytes # (auto) 0.6 uL; Monocytes # (auto) 0.6 uL; White Blood Cell 8.6 10^3/uL (4.4-10.8)
[2019-01-23 06:45] LABS: Eosinophils % (auto) 0.6 % (0.0-7.0); Hematocrit 55.4 % (36.0-46.0); Hemoglobin 18.7 g/dL (12.2-16.2); Lymphocytes % (auto) 6.8 % (10.0-50.0); Mean Corpuscular Hgb Conc. 33.7 g/dL (32.0-36.0); Mean Corpuscular Volume 91.9 fL (80.0-100.0); Monocytes % (auto) 7.1 % (0.0-12.0); Neutrophils # (auto) 7.4 uL; Neutrophils % (auto) 85.2 % (37.0-80.0); Nucleated Red Blood Cells % 0.4 %; Platelet Count (auto) 165 10^3/uL (140-450); Red Blood Cells 6.03 10^6/uL (4.0-5.20)
[2019-01-23 06:51] LABS: INR 1.03 (0.9-1.15); Partial Thromboplastin Time 24.3 sec (23.64-32.05)
[2019-01-23 06:54] LABS: BUN/Creatinine Ratio 42.9; Calcium 7.8 mg/dL (8.5-10.1); Potassium 4.3 mmol/L (3.5-5.1)
[2019-01-23 08:30] VITALS: BP 105/65
[2019-01-23] MEDS: PANTOPRAZOLE 40 MG TAB PO SCH (09:53)
[2019-01-23] MEDS: SERTRALINE HCL 50 MG TAB PO SCH (09:53)
[2019-01-23] MEDS: CARVEDILOL 3.125 MG TAB PO SCH ×2 (09:55→14:40)
[2019-01-23] MEDS: LORazepam 0.5 MG TAB PO PRN ×2 (09:56→17:54)
[2019-01-23] MEDS: ENALAPRIL MALEATE 2.5 MG TAB PO SCH (09:56)
[2019-01-23] MEDS: ASPirin 81 mg TAB PO SCH (09:57)
[2019-01-23] MEDS: FUROSEMIDE 40 MG TAB PO SCH (10:00)
[2019-01-23] MEDS: ENOXAPARIN SOD 40 MG/0.4 ML SYRINGE SC SCH (10:00)
--- NOTE | 2019-01-23 11:43 | NUR ---
assessment Patient not in room for assessment. Will try back later. Addendum: 01/23/19 at 1643 by Nanci CRESPO Amended: Links added.
[2019-01-23] MEDS ORDERED: MIDAZOLAM HCL 1MG/1ML-2 ML VIAL ONE (12:56)
[2019-01-23] MEDS ORDERED: fentaNYL CITRATE 100 MCG/2 ML VL ONE (12:56)
[2019-01-23] MEDS ORDERED: ANGIOMAX 250 MG VIAL IV ONE ×2 (12:56→14:21)
[2019-01-23] MEDS ORDERED: LIDOCAINE 2%HCL (LOCAL ANESTH.) INJ 20ML MDV ONE (12:57)
[2019-01-23] MEDS ORDERED: SODIUM CHL 0.9% 0 ML ONE (12:57)
[2019-01-23] MEDS ORDERED: IOHEXOL 350 MG/ML 100ML IJ ONE ×2 (12:57→14:07)
[2019-01-23] MEDS ORDERED: VERAPAMIL 2.5MG/ML INJ 2ML VIAL IV ONE (13:21)
[2019-01-23] MEDS ORDERED: HEPARIN SODIUM (PORCINE) 5000 UNITS/ML 1ML VIAL ONE (13:21)
[2019-01-23] MEDS ORDERED: SODIUM CHL 0.9% 50 ML ONE (14:21)
[2019-01-23] MEDS ORDERED: CLOPIDOGREL 300 MG TAB ONE (14:23)
--- NOTE | 2019-01-23 14:23 | NUR ---
Nutrition Assessment Notes Est. Energy Needs: 4905-1635 kcals (23-25 kcals/kg actual BW) Est Protein Needs: 78-97 gms (0.8-1.0 gms/kg actual BW) Will continue to monitor and assess prn. Addendum: 01/23/19 at [address] Amended: Links added.
[2019-01-23] MEDS ORDERED: ENOXAPARIN SOD 100 MG/1 ML SYRINGE SC ONE (14:45)
--- NOTE | 2019-01-23 15:30 | NUR ---
PATIENT CURRENTLY IN ROOM POST-CATH PROCEDURE. DEFLATION OF VASCULAR BAND STARTED AT 1530 NO S/S OF DISTRESS NOTED AT THE TIME. WILL CONTINUE TO MONITOR FOR CHANGES.
--- NOTE | 2019-01-23 16:35 | NUR ---
PATIENT REMAINS ALERT AND ORIENTED. POST-CATH PROTOCOL PER MD'S ORDER FOLLOWED. VASCULAR BAND REMOVED AND SITE CLEAN WITHOUT SIGNS OF BLEED AT 1630. WILL CONTINUE TO MONITOR FOR ANY CHANGES.
--- NOTE | 2019-01-23 16:47 | NUR ---
REPORT RECEIVED FROM PRACHI RAMIREZ. CARE ASSUMED.
[2019-01-23 17:00] VITALS: BP 122/71
[2019-01-23] MEDS: risperiDONE 1 MG TAB PO SCH (17:54)
--- NOTE | 2019-01-23 19:28 | NUR ---
CARE ENDORSED TO NOC RN BY JENNIFER GONSALES RN.
--- NOTE | 2019-01-23 19:30 | NUR ---
Opening Shift Note Assumed care of patient, awake and alert x4. Patient is complaining of pain to left hip (pain scale 7/10), will medicate patient as ordered by MD. Patient is on 3L NC, no signs/symptoms of distress noted at this time. Instructed on plan of care and to call for assistance as needed, patient verbalized understanding. Bed is locked in lowest position, side rails x 2 are up, and call light is within reach.
[2019-01-23 22:00] VITALS: BP 140/77
[2019-01-23] MEDS: ATORVASTATIN 20 MG TAB PO SCH (22:20)
[2019-01-23] MEDS: MIRTAZAPINE 30 MG TAB PO SCH (22:21)
[2019-01-24] MEDS: IPRATROPIUM BROM 0.5 MG/2.5ML INH SOL NEB SCH ×3 (00:08→11:14)
[2019-01-24] MEDS: ALBUTEROL SULF 2.5 MG/0.5ML(0.5%) NEB SOLN NEB SCH ×3 (00:08→11:14)
[2019-01-24] MEDS: ACCU-CHEK COMFORT CURVE STRIP VI SCH ×3 (01:30→11:53)
[2019-01-24] MEDS: SODIUM CHLOR 0.9% PF (SALINE LOCK) 10ML VIAL/SYR IV SCH ×3 (01:30→14:00)
[2019-01-24] MEDS: GABAPENTIN 300 MG CAP PO SCH ×2 (06:11→14:04)
[2019-01-24 06:16] VITALS: BP 123/68
[2019-01-24 06:40] LABS: Basophils # (auto) 0 uL; Basophils % (auto) 0.3 % (0.0-2.0); Eosinophils # (auto) 0.1 uL; Eosinophils % (auto) 1.7 % (0.0-7.0); Hematocrit 51.8 % (36.0-46.0); Hemoglobin 17.7 g/dL (12.2-16.2); Lymphocytes # (auto) 1.5 uL; Lymphocytes % (auto) 21.5 % (10.0-50.0); Mean Corpuscular Hemoglobin 31.5 pg (28.0-32.0); Mean Corpuscular Hgb Conc. 34.2 g/dL (32.0-36.0); Mean Corpuscular Volume 92.1 fL (80.0-100.0); Monocytes # (auto) 0.8 uL; Monocytes % (auto) 11.9 % (0.0-12.0); Neutrophils # (auto) 4.5 uL; Neutrophils % (auto) 64.6 % (37.0-80.0); Nucleated Red Blood Cells % 0.6 %; Platelet Count (auto) 163 10^3/uL (140-450); Red Blood Cells 5.63 10^6/uL (4.0-5.20)
[2019-01-24] MEDS: InsuLIN REG 1unit/0.01ml Soln (100units/ml) SC SCH ×2 (06:42→11:55)
--- NOTE | 2019-01-24 07:00 | NUR ---
CARE ASSUMED PATIENT ASLEEP, EASY TO AROUSE, ALERT AND ORIENTED. PATIENT DENIES PAIN OR DISCOMFORT. INSTRUCTED PT TO CALL FOR HELP NEEDED. BED ON LOWEST POSITION, CALL LIGHT WITH IN REACH. PT TALKING TO FAMILY MEMBER ON THE PHONE.
[2019-01-24 07:01] LABS: BUN/Creatinine Ratio 29.1; Calcium 8.2 mg/dL (8.5-10.1); Potassium 4.5 mmol/L (3.5-5.1)
--- NOTE | 2019-01-24 08:00 | NUR ---
MEDICATION SPECIMEN CUP GIVEN TO PATIENT TO COLLET STOOL FOR C-DIFF. PATIENT HAS NOT HAVE A STOOL TODAY. WILL CONTINUE TO MONITOR
[2019-01-24 08:30] VITALS: BP 103/59
[2019-01-24] MEDS: PANTOPRAZOLE 40 MG TAB PO SCH (09:00)
[2019-01-24] MEDS: SERTRALINE HCL 50 MG TAB PO SCH (09:00)
[2019-01-24] MEDS: ENOXAPARIN SOD 40 MG/0.4 ML SYRINGE SC SCH (09:00)
[2019-01-24] MEDS: ASPirin 81 mg TAB PO SCH (09:00)
[2019-01-24] MEDS: FUROSEMIDE 40 MG TAB PO SCH (09:01)
[2019-01-24] MEDS: CARVEDILOL 3.125 MG TAB PO SCH (09:08)
[2019-01-24] MEDS: ENALAPRIL MALEATE 2.5 MG TAB PO SCH (09:10)
[2019-01-24] MEDS ORDERED: SERT50TA PO (09:25)
[2019-01-24] MEDS ORDERED: PANT40T PO (09:25)
[2019-01-24] MEDS ORDERED: CLOP75TA28 PO (09:25)
[2019-01-24] MEDS ORDERED: ASPI81CH43 PO (09:25)
[2019-01-24] MEDS ORDERED: CLOPIDOGREL BISULFATE 75 MG TAB PO SCH (10:00)
--- NOTE | 2019-01-24 10:00 | NUR ---
DR SHAIKH DR FOX SAW THE PATIENT, EXPLAINED PLAN OF CARE AND DISCHARGE INSTRUCTIONS WELL FOLLOW UP INSTRUCTION. NEW PRESCRIPTIONS WILL BE GIVEN TO PATIENT WITH DISCHARGE PACKAGE.
--- NOTE | 2019-01-24 11:30 | NUR ---
ACCU CHECK PERFORMED ACCU CHECK, PT HAD B/S 167. COVERAGE NEEDED PER SLIDING SCALE.
[2019-01-24 12:00] VITALS: BP 94/61
--- NOTE | 2019-01-24 13:59 | NUR ---
POM WENT TO PHARMACY, RETRIED PATIENT'S HOME MEDICATION. DOSE OF NEURONTIN GIVEN . ALL POM GIVEN TO PATIENT,
--- NOTE | 2019-01-24 14:20 | NUR ---
DISCHARGE DISCHARGE PACKAGE GIVEN TO PATIENT. EXPLAINED FOLLOW UP ORDERS, NEW AND OLD MEDICATION, WELL INSTRUCTIONS TO CONTACT [facility] IN [place].PATIENT DENIES ANY QUESTIONS, VERBALIZED UNDERSTANDING OF INSTRUCTIONS. IV ON RIGHT AC AND ON LEFT WRIST REMOVED, NO TRAUMA OR BLEEDING. PATIENT RESTING IN BED, COMFORTABLE, UNLABORED BREATHING, AWAITING TRANSPORTATION WISH SHE CALLED WHILE WAS IN THE ROOM. THEY WHERE INSTRUCTED TO BRING OXYGEN TANK. TELE BOX WILL BE REMOVED RIGHT BEFORE PATIENT LEAVES THE UNIT FOR SAFETY. CALL LIGHT WITH IN REACH, BED ON LOWEST POSITION.
--- NOTE | 2019-01-24 15:30 | NUR ---
RETRIEVED TELE BOX BEFORE PATIENT LEFT.
== END 2019-01-24 15:50 | disposition home or self-care (01) | DRG 793 ==
LOC: EDBD 07:34 → ER 07:34 → TELE 07:35 → TELE-WESTW 16:27
PROVIDERS: ADMIT Internal Medicine; ATTEND Internal Medicine
PROC: 027035Z Dilation of Coronary Artery, One Artery with Two Drug-eluting Intraluminal Devices, Percutaneous Approach (ICD-10-PCS; principal; 2019-01-23)
PROC: 4A023N7 Measurement of Cardiac Sampling and Pressure, Left Heart, Percutaneous Approach (ICD-10-PCS; 2019-01-23)
PROC: B2111ZZ Fluoroscopy of Multiple Coronary Arteries using Low Osmolar Contrast (ICD-10-PCS; 2019-01-23)
PROC: 4A033BC Measurement of Arterial Pressure, Coronary, Percutaneous Approach (ICD-10-PCS; 2019-01-23)
DX: T40.4X2A Poisoning by other synthetic narcotics, intentional self-harm, initial encounter (principal); N17.0 Acute kidney failure with tubular necrosis; I21.4 Non-ST elevation (NSTEMI) myocardial infarction; G92 Toxic encephalopathy; I50.41 Acute combined systolic (congestive) and diastolic (congestive) heart failure; R65.10 Systemic inflammatory response syndrome (SIRS) of non-infectious origin without acute organ dysfunction; E66.01 Morbid (severe) obesity due to excess calories; I13.0 Hypertensive heart and chronic kidney disease with heart failure and stage 1 through stage 4 chronic kidney disease, or unspecified chronic kidney disease; E11.22 Type 2 diabetes mellitus with diabetic chronic kidney disease; E87.5 Hyperkalemia; N18.3 Chronic kidney disease, stage 3 (moderate); J44.9 Chronic obstructive pulmonary disease, unspecified; F15.90 Other stimulant use, unspecified, uncomplicated; F12.90 Cannabis use, unspecified, uncomplicated; E78.5 Hyperlipidemia, unspecified; F41.9 Anxiety disorder, unspecified; F31.9 Bipolar disorder, unspecified; F17.210 Nicotine dependence, cigarettes, uncomplicated; I65.21 Occlusion and stenosis of right carotid artery; R19.7 Diarrhea, unspecified; F20.9 Schizophrenia, unspecified; I25.10 Atherosclerotic heart disease of native coronary artery without angina pectoris; Z79.84 Long term (current) use of oral hypoglycemic drugs; Z82.49 Family history of ischemic heart disease and other diseases of the circulatory system; Z99.81 Dependence on supplemental oxygen; Z90.710 Acquired absence of both cervix and uterus; Z88.2 Allergy status to sulfonamides; Z79.51 Long term (current) use of inhaled steroids; Z79.899 Other long term (current) drug therapy; Z90.49 Acquired absence of other specified parts of digestive tract; Z68.38 Body mass index [BMI] 38.0-38.9, adult; Y92.098 Other place in other non-institutional residence as the place of occurrence of the external cause
CPT/HCPCS: 36415; 36600; 70450; 71045; 78452; 80048; 80053; 80061; 80307; 80329; 81001; 82140; 82550; 82805; 82962; 83036; 83735; 83880; 84443; 84484; 85007; 85025; 85027; 85610; 85652; 85730; 86141; 92928; 93005; 93017; 93306; 93458; 93571; 93886; 94640; 96360; 96361; 99152; 99153; C1874; G0378; J0153; J1815; J1956; J2250

== ENCOUNTER 2019-05-15 17:08 | Inpatient (IN) | payer MEDICAID ==
[~2019-05-15] VITALS: Ht 162.6 cm; Wt 63.9 kg
[~2019-05-15 17:08] MED LIST changes: -ACET-6 PO; -ALBU1AER4 IN; +ASPI81CH43 PO; +ATOR20TA PO; +CARV3.1240 PO; +CLOP75TA28 PO; -DIPH2.5T73 PO; -FURO20TA3 PO; +FURO40TA4 PO; +GABA300C10 PO; +METF-370 PO; -MIRT30TA OR; +PANT40T PO; +POTA-220 PO; -RISP1TAB63 PO; +RISP2TAB62 PO; +SERT50TA PO; +TRAM50TA2 PO
[2019-05-15 20:09] LABS: Urine Bacteria NONE SEEN /hpf (None Seen); Urine Blood Negative /uL (Negative); Urine Specific Gravity 1.019 (1.001-1.035); Urine WBC 14 /hpf (0 - 5)
[2019-05-15] MEDS ORDERED: SODIUM CHLORIDE 0.9% 1,000 ML IVB ONE (20:31)
[2019-05-15] MEDS ORDERED: cefTRIAXone 1GM/50ML D5W 50 ML IV ONE (20:45)
[2019-05-15 21:38] LABS: Basophils # (auto) 0 10 ^3/uL (0-0.2); Basophils % (auto) 0.1 % (0.0-2.0); Eosinophils # (auto) 0.1 10 ^3/uL (0-0.8); Eosinophils % (auto) 0.6 % (0.0-7.0); Hematocrit 45.8 % (36.0-46.0); Hemoglobin 15.8 g/dL (12.2-16.2); Lymphocytes # (auto) 1.3 10 ^3/uL (0.4-5.4); Lymphocytes % (auto) 10.6 % (10.0-50.0); Mean Corpuscular Hgb Conc. 34.4 g/dL (32.0-36.0); Monocytes # (auto) 0.8 10 ^3/uL (0-1.3); Monocytes % (auto) 6.4 % (0.0-12.0); Neutrophils # (auto) 10.1 10 ^3/uL (1.6-8.6); Neutrophils % (auto) 82.3 % (37.0-80.0); Nucleated Red Blood Cells % 0.1 %; Platelet Count (auto) 155 10^3/uL (140-450); Red Blood Cells 4.93 10^6/uL (4.0-5.20); Red Cell Distribution Width 14.9 % (11.8-14.3); White Blood Cell 12.3 10^3/uL (4.4-10.8)
[2019-05-15 21:44] LABS: BUN/Creatinine Ratio 16.4; Calcium 8.7 mg/dL (8.5-10.1); Magnesium 1.7 mg/dL (1.6-2.6); Potassium 3.2 mmol/L (3.5-5.1)
[2019-05-15 21:47] LABS: Bilirubin, Total 0.4 mg/dL (0.2-1.0); Total Protein 6.8 g/dL (6.4-8.2)
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
[2019-05-15] MEDS ORDERED: ACETAMINOPHEN 325 MG TAB PO PRN (23:45)
[2019-05-15] MEDS ORDERED: DEXTROSE (50%) 50ML SYRG IV PRN (23:45)
[2019-05-15] MEDS ORDERED: ALBUTEROL SULF 2.5 MG/0.5ML(0.5%) NEB SOLN NEB PRN (23:45)
[2019-05-15] MEDS ORDERED: TEMAZEPAM 15 MG CAP PO PRN (23:45)
[2019-05-15] MEDS ORDERED: POTASSIUM CHL 20 Meq TABLET PO ONE (23:45)
[2019-05-15] MEDS ORDERED: ONDANSETRON HCL 4 MG/2 ML VIAL IV PRN (23:45)
[2019-05-16] MEDS: ACCU-CHEK COMFORT CURVE STRIP VI SCH ×5 (00:16→23:41)
--- NOTE | 2019-05-16 00:23 | NUR ---
Respiratory note: ASSESSMENT FPR PRN MED NEB TX. HR 85, SPO2 96% ON 4L NC, RR 18, BS DIMINISHED. PT PRESENTING NO RESPIRATORY DISTRESS AT THIS TIME, PT AWARE OF PRN MED NEB TX. TREATMENT NOT INDICATED AT THIS TIME. PT AWARE TO HAVE RT PAGED IF NEEDED, WILL CONTINUE TO MONITOR.
[2019-05-16 00:40] VITALS: BP 110/74
--- NOTE | 2019-05-16 01:04 | NUR ---
PATIENT UNFAMILIAR WITH MEDICATION DOSES UNABLE TO CONFIRM LIST OF MEDICATIONS AT THIS TIME. WILL INFORM TALENT DEVELOPMENT SPECIALIST RN.
--- NOTE | 2019-05-16 03:48 | NUR ---
belonging list complete
[2019-05-16 05:03] VITALS: BP 111/75
[2019-05-16] MEDS: InsuLIN REG 1unit/0.01ml Soln (100units/ml) SC SCH ×5 (05:46→23:41)
[2019-05-16 06:13] LABS: Basophils # (auto) 0 10 ^3/uL (0-0.2); Basophils % (auto) 0.1 % (0.0-2.0); Eosinophils # (auto) 0.1 10 ^3/uL (0-0.8); Eosinophils % (auto) 0.5 % (0.0-7.0); Hematocrit 45.6 % (36.0-46.0); Hemoglobin 15.7 g/dL (12.2-16.2); Lymphocytes % (auto) 10.4 % (10.0-50.0); Mean Corpuscular Hemoglobin 32.1 pg (28.0-32.0); Mean Corpuscular Hgb Conc. 34.5 g/dL (32.0-36.0); Monocytes # (auto) 0.6 10 ^3/uL (0-1.3); Monocytes % (auto) 6.1 % (0.0-12.0); Neutrophils # (auto) 8.1 10 ^3/uL (1.6-8.6); Neutrophils % (auto) 82.9 % (37.0-80.0); Nucleated Red Blood Cells % 0.2 %; Platelet Count (auto) 148 10^3/uL (140-450); Red Cell Distribution Width 14.7 % (11.8-14.3); White Blood Cell 9.8 10^3/uL (4.4-10.8)
[2019-05-16 06:56] LABS: Potassium 3.8 mmol/L (3.5-5.1)
[2019-05-16 06:58] LABS: BUN/Creatinine Ratio 24.2; Calcium 8.8 mg/dL (8.5-10.1)
--- NOTE | 2019-05-16 07:20 | NUR ---
Opening shift note Patient A&Ox4, 4L NC, respirations even and non-labored with no s/s of distress. Discussed POC with patient, bed lowered/locked with 2 side rails up. Call light within reach. Will continue to monitor.
--- NOTE | 2019-05-16 07:26 | NUR ---
Provided report to day RN. Notified RN of Med Rec not completed due to patient not knowing what meds she takes currently at home. Currently patient is resting in bed with no signs of distress at this time.
--- NOTE | 2019-05-16 08:56 | NUR ---
Rounding Patient requested help in restroom. Complete linen/gown change with perineal care. Returned patient to bed. Patient resting without complaint.
[2019-05-16 09:30] VITALS: BP 118/63
[2019-05-16] MEDS: levoFLOXacin 500MG 100 ML IV SCH (11:07)
[2019-05-16] MEDS: CLOPIDOGREL BISULFATE 75 MG TAB PO SCH (11:08)
[2019-05-16] MEDS: GABAPENTIN 300 MG CAP PO SCH ×2 (11:09→22:36)
[2019-05-16] MEDS: ASPirin 81 mg TAB PO SCH (11:10)
[2019-05-16] MEDS: FUROSEMIDE 40 MG TAB PO SCH (11:10)
[2019-05-16] MEDS: SERTRALINE HCL 50 MG TAB PO SCH (11:10)
[2019-05-16] MEDS: PANTOPRAZOLE 40 MG TAB PO SCH (11:11)
[2019-05-16] MEDS: CARVEDILOL 3.125 MG TAB PO SCH ×2 (11:12→22:35)
[2019-05-16] MEDS: METOPROLOL SUCCINATE XL 50 MG TAB PO SCH (11:13)
--- NOTE | 2019-05-16 12:53 | NUR ---
Pain Patient complaining of pain, 8/ to umbilical area. Administered tylenol, for mild pain, at this time. Dr. Jaramillo aware of patient's request for a stronger pain medication. No new orders given at this time. Awaiting GI Consult to evaluate cause of abdominal pain.
--- NOTE | 2019-05-16 13:55 | NUR ---
Reassessment Patient resting in bed at this time with eyes closed. Patient does not appear to be in any pain or distress at this time.
[2019-05-16] MEDS ORDERED: HYOSCYAMINE SULF 0.125 MG ODT TAB PO PRN (14:15)
[2019-05-16 14:17] VITALS: BP 112/67
[2019-05-16 16:24] VITALS: BP 115/85
--- NOTE | 2019-05-16 19:12 | NUR ---
Respiratory note: ASSESSMENT FOR PRN MED NEB TX. HR 83, SPO2 96% ON 4L NC, RR 16, BS DIMINISHED. MED NEB TX NOT INDICATED AT THIS TIME, NO RESPIRATORY DISTRESS NOTED. PT AWARE OF PRN MED NEB TXS AND TO HAVE RT PAGED IF NEEDED. WILL CONTINUE TO MONITOR ORDERED.
[2019-05-16 20:00] VITALS: BP 134/84
--- NOTE | 2019-05-16 20:00 | NUR ---
Opening Shift Note Assumed care of patient, awake and alert. No S/S of distress/SOB or pain. Instructed on POC and to call for assist PRN, will continue to monitor for changes Q1hr and PRN.
[2019-05-16] MEDS: ATORVASTATIN 20 MG TAB PO SCH (22:36)
[2019-05-17] VITALS (9 sets, daily range): BP systolic 98–139; BP diastolic 53–87
[2019-05-17] MEDS: InsuLIN REG 1unit/0.01ml Soln (100units/ml) SC SCH ×3 (06:59→17:38)
[2019-05-17] MEDS: ACCU-CHEK COMFORT CURVE STRIP VI SCH ×3 (07:00→17:39)
--- NOTE | 2019-05-17 09:31 | NUR ---
Respiratory note: ASSESSMENT FOR PRN MED NEB TX. HR 80, SPO2 97% ON 4L NC, RR 16, BS DIMINISHED. MED NEB TX NOT INDICATED AT THIS TIME, NO RESPIRATORY DISTRESS NOTED. PT AWARE OF PRN MED NEB TXS AND TO HAVE RT PAGED IF NEEDED. TITRATED FIO2 TO 2L N/C. WILL CONTINUE TO MONITOR ORDERED.
[2019-05-17] MEDS: levoFLOXacin 500MG 100 ML IV SCH (10:40)
[2019-05-17] MEDS: ASPirin 81 mg TAB PO SCH (10:40)
[2019-05-17] MEDS: CLOPIDOGREL BISULFATE 75 MG TAB PO SCH (10:41)
[2019-05-17] MEDS: PANTOPRAZOLE 40 MG TAB PO SCH (10:41)
[2019-05-17] MEDS: FUROSEMIDE 40 MG TAB PO SCH (10:41)
[2019-05-17] MEDS: GABAPENTIN 300 MG CAP PO SCH ×2 (10:41→23:13)
[2019-05-17] MEDS: SERTRALINE HCL 50 MG TAB PO SCH (10:42)
[2019-05-17] MEDS: CARVEDILOL 3.125 MG TAB PO SCH ×2 (10:42→23:13)
[2019-05-17] MEDS: METOPROLOL SUCCINATE XL 50 MG TAB PO SCH (10:42)
--- NOTE | 2019-05-17 19:15 | NUR ---
Respiratory note: ASSESSED PT FOR PRN MED NEB AT THIS TIME, PT WHEEZING AT THIS TIME, PT DENIES NEED FOR TX AFTER BEING NOTIFIED OF WHEEZES, PT NOTIFIED TO CALL RT IF SOB OCCURS. PULSE OX 93% ON 2LNC, HR 68, RR 20
--- NOTE | 2019-05-17 19:15 | NUR ---
Endorsed report to night JAMES Dial. Patient resting in bed, no distress, sob, or pain noted at this time.
--- NOTE | 2019-05-17 19:20 | NUR ---
Opening Shift Note Assumed care of patient, awake and alert. No S/S of distress/SOB or pain. Instructed on POC and to call for assist PRN, will continue to monitor for changes Q1hr and PRN. PATIENT RESTING IN BED, BED IN LOWEST POSITION, SIDE RALES UPX2, AND CALL LIGHT AT HER SIDE WITHIN REACH.
[2019-05-17] MEDS: ATORVASTATIN 20 MG TAB PO SCH (23:13)
[2019-05-18] MEDS: ACCU-CHEK COMFORT CURVE STRIP VI SCH ×4 (00:12→17:09)
[2019-05-18 05:07] VITALS: BP 128/78
[2019-05-18] MEDS: InsuLIN REG 1unit/0.01ml Soln (100units/ml) SC SCH ×4 (06:03→17:08)
--- NOTE | 2019-05-18 07:15 | NUR ---
Opening Shift Note Assumed care of patient, awake and alert. No S/S of distress/SOB or pain. Instructed on POC and to call for assist PRN, will continue to monitor for changes Q1hr and PRN. Fall precautions in place per safety protocol.
[2019-05-18 09:00] VITALS: BP_SYST 111; BP_SYST 127; BP_DIAS 50; BP_DIAS 77
[2019-05-18] MEDS: METOPROLOL SUCCINATE XL 50 MG TAB PO SCH (10:00)
[2019-05-18] MEDS: ASPirin 81 mg TAB PO SCH (10:44)
[2019-05-18] MEDS: CARVEDILOL 3.125 MG TAB PO SCH ×2 (10:44→22:42)
[2019-05-18] MEDS: levoFLOXacin 500MG 100 ML IV SCH (10:44)
[2019-05-18] MEDS: GABAPENTIN 300 MG CAP PO SCH ×2 (10:45→22:43)
[2019-05-18] MEDS: CLOPIDOGREL BISULFATE 75 MG TAB PO SCH (10:45)
[2019-05-18] MEDS: FUROSEMIDE 40 MG TAB PO SCH (10:45)
[2019-05-18] MEDS: SERTRALINE HCL 50 MG TAB PO SCH (10:45)
[2019-05-18] MEDS: PANTOPRAZOLE 40 MG TAB PO SCH (10:45)
[2019-05-18 13:00] VITALS: BP 124/90
[2019-05-18 17:00] VITALS: BP_SYST 101; BP_SYST 121; BP_DIAS 74; BP_DIAS 82
--- NOTE | 2019-05-18 18:37 | NUR ---
Hospitalist at bedside MD Christie at bedside, aware of patient status. Per MD Christie, possible discharge tomorrow. Will cont to monitor patient.
--- NOTE | 2019-05-18 19:30 | NUR ---
Received report from the Day JAMES Waddell. Initial assessment done.
--- NOTE | 2019-05-18 19:30 | NUR ---
Endorsed care to night JAMES Luis. Patient resting in bed, no distress, sob, or pain noted at this time.
--- NOTE | 2019-05-18 20:00 | NUR ---
Complete assessment done. Pt. in bed resting, alert, awake, oriented x 4, able to respond to the Nurse's/Caregiver's voice. Pt. @ 2L/NC continuous. Presence of mild sob and pt. on bedrest. Pt. denies pain. Medical- Surgical pt. and non-monitored. Presence of general weakness. Pt. assisted with the activities of daily living. No skin breakdown. Generally skin intact. Pt. can ambulate with assist to the BSC. IV access @ the Right wrist G # 20 Saline Lock which was started last 05/15/19. Keep IV patent and intact.
[2019-05-18 20:21] VITALS: BP 101/82
[2019-05-18 22:00] VITALS: BP_SYST 123; BP_SYST 129; BP_DIAS 61; BP_DIAS 94
[2019-05-18] MEDS: ATORVASTATIN 20 MG TAB PO SCH (22:42)
--- NOTE | 2019-05-18 22:42 | NUR ---
Meds. as scheduled given. Pt. made aware of the use and benefits of the meds. given. Pt. verbalized understanding.
--- NOTE | 2019-05-19 00:24 | NUR ---
Pt. awakened @ this time. Pt. provided explanation about the blood sugar monitoring or taking @ this time. Pt. verbalized understanding. Accucheck taken with result of BS = 126 , no coverage for Regular Human Insulin needed. Pt. aware of the result. Encouraged pt. to return to sleep. Reenforced blanket and keep pt. clean, dry, safe and operating system programmer bed. Call-light within reach @ the bedside. Lights off and keep room environment quiet and dim-lighted to facilitate good rest and sleep.
[2019-05-19] MEDS: ACCU-CHEK COMFORT CURVE STRIP VI SCH ×3 (00:28→12:00)
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
[2019-05-19 05:00] VITALS: BP 102/69
--- NOTE | 2019-05-19 06:49 | NUR ---
Accucheck taken with result of BS = 133 , Pt. will be given Regular Human Insulin coverage per s/s as ordered by the Doctor - see Emar.
[2019-05-19] MEDS: InsuLIN REG 1unit/0.01ml Soln (100units/ml) SC SCH ×3 (06:56→12:00)
--- NOTE | 2019-05-19 07:10 | NUR ---
Gave report to the next Day Shift JAMES Waddell. Pt. in bed resting, half awake, half sleeping, ready for breakfast. Pt. does not need to be transferred to the other room since pt. might be discharge home today.
--- NOTE | 2019-05-19 08:29 | NUR ---
PT ASSESSED FOR PRN HHN TX. PT IS ON 3LNC, SPO2 95%, HR 75, RR 16. NO S/S OF RESPIRATORY DISTRESS. HHN TX NOT INDICATED AT THIS TIME. WILL CONTINUE TO MONITOR.
[2019-05-19 09:00] VITALS: BP_SYST 108; BP_SYST 99; BP_DIAS 64; BP_DIAS 68
[2019-05-19] MEDS: METOPROLOL SUCCINATE XL 50 MG TAB PO SCH (10:00)
[2019-05-19] MEDS: levoFLOXacin 500MG 100 ML IV SCH (10:18)
[2019-05-19] MEDS: ASPirin 81 mg TAB PO SCH (10:19)
[2019-05-19] MEDS: GABAPENTIN 300 MG CAP PO SCH (10:19)
[2019-05-19] MEDS: CLOPIDOGREL BISULFATE 75 MG TAB PO SCH (10:19)
[2019-05-19] MEDS: FUROSEMIDE 40 MG TAB PO SCH (10:19)
[2019-05-19] MEDS: PANTOPRAZOLE 40 MG TAB PO SCH (10:19)
[2019-05-19] MEDS: CARVEDILOL 3.125 MG TAB PO SCH (10:20)
[2019-05-19] MEDS: SERTRALINE HCL 50 MG TAB PO SCH (10:20)
--- NOTE | 2019-05-19 11:30 | NUR ---
Hospitalist at bedside MD Christie at bedside, aware of patient status. New orders for discharge received, will carry out new orders.
[2019-05-19 13:00] VITALS: BP 119/89
[2019-05-19] MEDS ORDERED: METF-370 PO (14:15)
[2019-05-19] MEDS ORDERED: GABA300C10 PO (14:15)
[2019-05-19] MEDS ORDERED: ASPI81CH43 PO (14:15)
[2019-05-19] MEDS ORDERED: HYOS0.1297 PO (14:15)
[2019-05-19] MEDS ORDERED: SERT50TA PO (14:15)
[2019-05-19] MEDS ORDERED: PANT40T PO (14:15)
[2019-05-19] MEDS ORDERED: METO-6 PO (14:15)
[2019-05-19] MEDS ORDERED: ATOR20TA50 PO (14:15)
[2019-05-19] MEDS ORDERED: CLOP75TA28 PO (14:15)
[2019-05-19] MEDS ORDERED: FURO40TA4 PO (14:15)
[2019-05-19] MEDS ORDERED: CAR3125T PO (14:15)
[2019-05-19 14:34] VITALS: BP 119/89
[2019-05-19 16:55] VITALS: BP 113/70
--- NOTE | 2019-05-19 16:59 | NUR ---
Discharge instructions given as ordered. Encourage to follow up with PMD as instructed. All questions and concerns addressed. Patient verbalized understanding. Medication reconciliation form completed and copy given to patient. IV removed with catheter intact, pressure dressing applied. Patient taken to vehicle via wheelchair with all personal belongings, accompanied by staff. No distress noted at time of departure.
== END 2019-05-19 17:00 | disposition home or self-care (01) | DRG 137 ==
LOC: ER 17:08 → EDUNIT# 17:08 → EDBD 17:08 → OVERFLOW 17:09 → WEST WING 23:22
PROVIDERS: ADMIT Nurse Practitioner; ATTEND Internal Medicine Nephrology
DX: J15.6 Pneumonia due to other Gram-negative bacteria (principal); J96.10 Chronic respiratory failure, unspecified whether with hypoxia or hypercapnia; E44.0 Moderate protein-calorie malnutrition; I50.9 Heart failure, unspecified; E66.01 Morbid (severe) obesity due to excess calories; I11.0 Hypertensive heart disease with heart failure; D72.829 Elevated white blood cell count, unspecified; E11.9 Type 2 diabetes mellitus without complications; J44.0 Chronic obstructive pulmonary disease with (acute) lower respiratory infection; J44.9 Chronic obstructive pulmonary disease, unspecified; N30.00 Acute cystitis without hematuria; F32.9 Major depressive disorder, single episode, unspecified; I25.10 Atherosclerotic heart disease of native coronary artery without angina pectoris; R19.7 Diarrhea, unspecified; F41.9 Anxiety disorder, unspecified; Z88.2 Allergy status to sulfonamides; Z79.899 Other long term (current) drug therapy; Z79.82 Long term (current) use of aspirin; Z90.49 Acquired absence of other specified parts of digestive tract; Z90.710 Acquired absence of both cervix and uterus; Z82.49 Family history of ischemic heart disease and other diseases of the circulatory system; Z68.24 Body mass index [BMI] 24.0-24.9, adult; Z90.5 Acquired absence of kidney
CPT/HCPCS: 36415; 71045; 74176; 80048; 80053; 81001; 82150; 82962; 83605; 83690; 83735; 85025; 87040; 87045; 87086; 87427; 87804; 94640; 96361; 96365; 96367; G0378; J0696; J1815; J1956; J2405

== ENCOUNTER 2020-03-06 05:31 | Inpatient (IN) | payer MEDICAID ==
[~2020-03-06] VITALS: Ht 170.2 cm; Wt 113.4 kg
[~2020-03-06 05:31] MED LIST changes: -ATOR20TA PO; +ATOR20TA50 PO; +CAR3125T PO; -CARV3.1240 PO; +HYOS0.1297 PO; +METO-6 PO; -METO25TA5 PO; -MULT-228 PO; -POTA-220 PO; -RISP2TAB62 PO; -TRAM50TA2 PO
[2020-03-06] MEDS ORDERED: methylPREDNISolone SOD SUCC 125 MG/2 ML VL IV ONE (05:45)
[2020-03-06] MEDS ORDERED: ONDANSETRON HCL 4 MG/2 ML VIAL IV ONE (07:15)
[2020-03-06 07:54] LABS: Basophils # (auto) 0 10 ^3/uL (0-0.2); Basophils % (auto) 0.1 % (0.0-2.0); Eosinophils # (auto) 0 10 ^3/uL (0-0.8); Eosinophils % (auto) 0.1 % (0.0-7.0); Hemoglobin 16.7 g/dL (12.2-16.2); Lymphocytes # (auto) 0.2 10 ^3/uL (0.4-5.4); Lymphocytes % (auto) 2.6 % (10.0-50.0); Mean Corpuscular Hemoglobin 31.3 pg (28.0-32.0); Mean Corpuscular Volume 92.1 fL (80.0-100.0); Monocytes # (auto) 0.4 10 ^3/uL (0-1.3); Monocytes % (auto) 4.2 % (0.0-12.0); Neutrophils # (auto) 8.3 10 ^3/uL (1.6-8.6); Nucleated Red Blood Cells % 0.3 %; Platelet Count (auto) 211 10^3/uL (140-450); Red Blood Cells 5.33 10^6/uL (4.0-5.20); White Blood Cell 8.9 10^3/uL (4.4-10.8)
[2020-03-06 08:09] LABS: Albumin 3.5 g/dL (3.4-5.0); Calcium 8.5 mg/dL (8.5-10.1); Potassium 4.3 mmol/L (3.5-5.1)
[2020-03-06] MEDS ORDERED: DexAMETHasone SOD PHOS 10MG/1ML VIAL INJ IV ONE (08:15)
[2020-03-06] MEDS ORDERED: cefTRIAXone 1GM/50ML D5W 50 ML IV ONE (08:15)
[2020-03-06 08:24] LABS: BUN/Creatinine Ratio 19.4; Bilirubin, Total 0.4 mg/dL (0.2-1.0); CRP High Sensitivity 1.73 mg/dL (< 0.3); Total Protein 7.3 g/dL (6.4-8.2)
[2020-03-06] MEDS ORDERED: MORPHINE SULF INJ 2 MG/ML SYRINGE 1ML IV PRN (11:45)
[2020-03-06] MEDS ORDERED: NITROGLYCERIN 0.4 MG SL TAB SL PRN (11:45)
[2020-03-06] MEDS ORDERED: ALBUTEROL SULF HFA 90MCG INH 200DOSE IN SCH (12:00)
[2020-03-06] MEDS ORDERED: ALBUTEROL SULF HFA 90MCG INH 200DOSE IN PRN (12:30)
[2020-03-06] MEDS: levoFLOXacin 500MG 100 ML IV SCH (13:24)
[2020-03-06] MEDS ORDERED: IOHEXOL 350 MG/ML 100ML IJ ONE ×2 (15:13→18:33)
[2020-03-06] MEDS: methylPREDNISolone SOD SUCC 40 MG/ML VL IV SCH (23:57)
[2020-03-07] MEDS: ALBUTEROL SULF HFA 90MCG INH 200DOSE IN SCH ×4 (00:45→22:00)
[2020-03-07] MEDS: CARVEDILOL 3.125 MG TAB PO SCH ×3 (03:17→21:17)
[2020-03-07] MEDS: ASPirin 81 mg TAB PO SCH (10:00)
[2020-03-07] MEDS ORDERED: ASPirin 81 mg TAB PO SCH (10:00)
[2020-03-07] MEDS: SERTRALINE HCL 50 MG TAB PO SCH (10:00)
[2020-03-07] MEDS: FUROSEMIDE 20 MG TAB PO SCH (10:00)
[2020-03-07] MEDS: methylPREDNISolone SOD SUCC 40 MG/ML VL IV SCH ×2 (10:00→21:17)
[2020-03-07] MEDS: CLOPIDOGREL BISULFATE 75 MG TAB PO SCH (10:00)
[2020-03-07] MEDS: GABAPENTIN 300 MG CAP PO SCH ×2 (10:00→21:16)
[2020-03-07] MEDS: levoFLOXacin 500MG 100 ML IV SCH (11:51)
[2020-03-07] MEDS: ATORVASTATIN 20 MG TAB PO SCH (21:16)
[2020-03-08] MEDS: ALBUTEROL SULF 2.5 MG/0.5ML(0.5%) NEB SOLN NEB SCH ×3 (06:39→18:28)
[2020-03-08] MEDS: IPRATROPIUM BROM 0.5 MG/2.5ML INH SOL NEB SCH ×3 (06:39→18:28)
[2020-03-08 07:59] LABS: Basophils # (auto) 0 10 ^3/uL (0-0.2); Basophils % (auto) 0.3 % (0.0-2.0); Eosinophils # (auto) 0 10 ^3/uL (0-0.8); Eosinophils % (auto) 0.1 % (0.0-7.0); Hematocrit 45.4 % (36.0-46.0); Hemoglobin 15.6 g/dL (12.2-16.2); Lymphocytes # (auto) 1.1 10 ^3/uL (0.4-5.4); Lymphocytes % (auto) 10.2 % (10.0-50.0); Mean Corpuscular Hemoglobin 31.1 pg (28.0-32.0); Mean Corpuscular Hgb Conc. 34.4 g/dL (32.0-36.0); Mean Corpuscular Volume 90.4 fL (80.0-100.0); Monocytes # (auto) 0.8 10 ^3/uL (0-1.3); Monocytes % (auto) 7.8 % (0.0-12.0); Neutrophils # (auto) 8.6 10 ^3/uL (1.6-8.6); Neutrophils % (auto) 81.6 % (37.0-80.0); Platelet Count (auto) 184 10^3/uL (140-450); Red Blood Cells 5.02 10^6/uL (4.0-5.20); Red Cell Distribution Width 15.1 % (11.8-14.3); White Blood Cell 10.5 10^3/uL (4.4-10.8)
[2020-03-08 08:47] LABS: BUN/Creatinine Ratio 35.7; Calcium 8.9 mg/dL (8.5-10.1); Potassium 4.1 mmol/L (3.5-5.1)
[2020-03-08] MEDS: GABAPENTIN 300 MG CAP PO SCH ×2 (10:45→21:57)
[2020-03-08] MEDS: CARVEDILOL 3.125 MG TAB PO SCH ×2 (10:46→21:57)
[2020-03-08] MEDS: methylPREDNISolone SOD SUCC 40 MG/ML VL IV SCH ×2 (10:47→22:00)
[2020-03-08] MEDS: ASPirin 81 mg TAB PO SCH (10:47)
[2020-03-08] MEDS: CLOPIDOGREL BISULFATE 75 MG TAB PO SCH (10:49)
[2020-03-08] MEDS: SERTRALINE HCL 50 MG TAB PO SCH (10:49)
[2020-03-08] MEDS: FUROSEMIDE 20 MG TAB PO SCH (10:54)
[2020-03-08] MEDS: levoFLOXacin 500MG 100 ML IV SCH (11:01)
[2020-03-08] MEDS ORDERED: PRED20TA2 PO (17:08)
[2020-03-08] MEDS ORDERED: LEVO-28 PO (17:08)
[2020-03-08] MEDS ORDERED: ALBUAER3 IN (17:08)
[2020-03-08] MEDS: ATORVASTATIN 20 MG TAB PO SCH (21:57)
[2020-03-08 22:29] VITALS: BP 142/74
== END 2020-03-08 22:45 | disposition home health service (06) | DRG 133 ==
LOC: ER 05:31 → EDBD 05:31 → TELE 05:32
PROVIDERS: ADMIT Internal Medicine; ATTEND Internal Medicine
PROC: 5A09357 Assistance with Respiratory Ventilation, Less than 24 Consecutive Hours, Continuous Positive Airway Pressure (ICD-10-PCS; principal; 2020-03-06)
DX: J96.21 Acute and chronic respiratory failure with hypoxia (principal); J44.9 Chronic obstructive pulmonary disease, unspecified; F32.9 Major depressive disorder, single episode, unspecified; F41.9 Anxiety disorder, unspecified; Z20.822 Contact with and (suspected) exposure to COVID-19; F17.210 Nicotine dependence, cigarettes, uncomplicated; I25.10 Atherosclerotic heart disease of native coronary artery without angina pectoris; J44.1 Chronic obstructive pulmonary disease with (acute) exacerbation; J44.0 Chronic obstructive pulmonary disease with (acute) lower respiratory infection; J96.22 Acute and chronic respiratory failure with hypercapnia; E11.40 Type 2 diabetes mellitus with diabetic neuropathy, unspecified; J12.9 Viral pneumonia, unspecified; E78.5 Hyperlipidemia, unspecified; K21.9 Gastro-esophageal reflux disease without esophagitis; I11.0 Hypertensive heart disease with heart failure; I50.9 Heart failure, unspecified; E66.01 Morbid (severe) obesity due to excess calories; Z88.2 Allergy status to sulfonamides; Z79.899 Other long term (current) drug therapy; Z79.82 Long term (current) use of aspirin; Z79.84 Long term (current) use of oral hypoglycemic drugs; Z90.49 Acquired absence of other specified parts of digestive tract; Z90.710 Acquired absence of both cervix and uterus; Z82.49 Family history of ischemic heart disease and other diseases of the circulatory system; Z68.41 Body mass index [BMI] 40.0-44.9, adult; Z98.61 Coronary angioplasty status
CPT/HCPCS: 36415; 36600; 71045; 71275; 80048; 80053; 82728; 82805; 83605; 83880; 84484; 85025; 85379; 86141; 87040; 87426; 93005; 93970; 94640; 94660; 96365; 96375; 99291; G0378; J0696; J1100; J1956

== ENCOUNTER 2020-03-20 09:29 | Inpatient (IN) | payer MEDICAID ==
[~2020-03-20] VITALS: Ht 165.1 cm; Wt 103.9 kg
[~2020-03-20 09:29] MED LIST changes: +ALBUAER3 IN; +HYOS0.1289 PO; -HYOS0.1297 PO; +LEVO-28 PO; -METO-6 PO; +PRED20TA2 PO
[2020-03-20 10:20] LABS: Basophils # (auto) 0 10 ^3/uL (0-0.2); Basophils % (auto) 0.8 % (0.0-2.0); Eosinophils # (auto) 0 10 ^3/uL (0-0.8); Eosinophils % (auto) 0.2 % (0.0-7.0); Hematocrit 39.3 % (36.0-46.0); Hemoglobin 13.5 g/dL (12.2-16.2); Lymphocytes # (auto) 0.9 10 ^3/uL (0.4-5.4); Lymphocytes % (auto) 15.6 % (10.0-50.0); Mean Corpuscular Hgb Conc. 34.3 g/dL (32.0-36.0); Mean Corpuscular Volume 90.4 fL (80.0-100.0); Monocytes # (auto) 0.5 10 ^3/uL (0-1.3); Monocytes % (auto) 9.1 % (0.0-12.0); Neutrophils # (auto) 4.3 10 ^3/uL (1.6-8.6); Neutrophils % (auto) 74.3 % (37.0-80.0); Nucleated Red Blood Cells % 0.2 %; Platelet Count (auto) 152 10^3/uL (140-450); Red Blood Cells 4.34 10^6/uL (4.0-5.20); Red Cell Distribution Width 15.2 % (11.8-14.3); White Blood Cell 5.8 10^3/uL (4.4-10.8)
[2020-03-20 10:47] LABS: Albumin 2.5 g/dL (3.4-5.0); Blood Urea Nitrogen 10 mg/dL (7-18); Calcium 7.9 mg/dL (8.5-10.1); Glucose 58 mg/dL (74-106)
[2020-03-20 10:54] LABS: Alanine Aminotransferase 24 U/L (13-56); Alkaline Phosphatase 76 U/L (45-117); Aspartate Aminotransferase 18 U/L (15-37); BUN/Creatinine Ratio 22.7; Bilirubin, Total 0.3 mg/dL (0.2-1.0); GFR African American 192 mL/min; GFR Non-African American 159 mL/min
[2020-03-20 11:03] LABS: Carbon Dioxide 36 mmol/L (21-32)
[2020-03-20 11:07] LABS: Anion Gap 2 (5-15); Chloride 100 mmol/L (98-107); Potassium 4.7 mmol/L (3.5-5.1); Sodium 138 mmol/L (136-145)
[2020-03-20] MEDS ORDERED: ASCORBIC ACID 500 MG TAB PO ONE (12:30)
[2020-03-20] MEDS ORDERED: methylPREDNISolone SOD SUCC 125 MG/2 ML VL IV ONE (12:30)
[2020-03-20] MEDS ORDERED: CHOLECALCIFEROL (VITD3) 2,000 UNIT CAP PO ONE (12:30)
[2020-03-20] MEDS ORDERED: ZINC SULFATE 220mg CAP or TAB PO ONE (12:30)
[2020-03-20] MEDS ORDERED: AZITHROMYCIN 500MG/ 250ML 250 ML IV ONE (12:30)
[2020-03-20] MEDS ORDERED: DEXTROSE (50%) 50ML SYRG IV PRN (22:30)
[2020-03-20] MEDS ORDERED: MORPHINE SULF INJ 2 MG/ML SYRINGE 1ML IV PRN (22:30)
[2020-03-20] MEDS ORDERED: NITROGLYCERIN 0.4 MG SL TAB SL PRN (22:30)
[2020-03-20] MEDS ORDERED: IOHEXOL 350 MG/ML 100ML IJ ONE (22:41)
[2020-03-20 23:10] LABS: INR 0.98 (0.9-1.15); Partial Thromboplastin Time 25.9 sec (23.0-31.2)
[2020-03-21] MEDS: ENOXAPARIN SOD 80 MG/0.8ML SYRINGE SC SCH ×3 (00:07→22:44)
[2020-03-21] MEDS ORDERED: ALBUTEROL SULF HFA 90MCG INH 200DOSE IN SCH (02:00)
[2020-03-21 04:45] VITALS: BP 142/76
[2020-03-21] MEDS: ACCU-CHEK COMFORT CURVE STRIP VI SCH ×4 (06:29→22:45)
[2020-03-21] MEDS: InsuLIN REG 1unit/0.01ml Soln (100units/ml) SC SCH ×4 (06:33→22:00)
[2020-03-21 08:00] VITALS: BP 143/75
[2020-03-21] MEDS: BUDESONIDE (INHALATION) 180 MCG IH IN SCH ×2 (10:00→19:55)
[2020-03-21] MEDS: cefTRIAXone 1GM/50ML D5W 50 ML IV SCH (11:02)
[2020-03-21] MEDS: DexAMETHasone SOD PHOS 10MG/1ML VIAL INJ IV SCH (11:03)
[2020-03-21] MEDS: ZINC SULFATE 220mg CAP or TAB PO SCH (11:04)
[2020-03-21] MEDS: ASPirin 81 mg TAB PO SCH (11:04)
[2020-03-21] MEDS: AZITHROMYCIN 500MG/ 250ML 250 ML IV SCH (11:04)
[2020-03-21] MEDS: CLOPIDOGREL BISULFATE 75 MG TAB PO SCH (11:05)
[2020-03-21] MEDS: CARVEDILOL 3.125 MG TAB PO SCH ×2 (11:05→22:44)
[2020-03-21] MEDS: GABAPENTIN 300 MG CAP PO SCH ×2 (11:05→22:43)
[2020-03-21] MEDS: FUROSEMIDE 40 MG TAB PO SCH (11:05)
[2020-03-21] MEDS: SERTRALINE HCL 50 MG TAB PO SCH (11:06)
[2020-03-21] MEDS: CHOLECALCIFEROL (VITD3) 2,000 UNIT CAP PO SCH (11:06)
[2020-03-21] MEDS: PANTOPRAZOLE 40 MG TAB PO SCH (11:06)
[2020-03-21] MEDS: ASCORBIC ACID 500 MG TAB PO SCH ×2 (11:06→22:43)
[2020-03-21] MEDS ORDERED: REMDESIVIR PER PHARMACY 0 ML IV SCH (11:45)
[2020-03-21] MEDS ORDERED: REMDESIVIR 200 MG in NS 210ml LOADING DOSE ADULT IV ONE (15:00)
[2020-03-21 16:00] VITALS: BP 123/97
[2020-03-21] MEDS: ALBUTEROL SULF HFA 90MCG INH 200DOSE IN PRN ×2 (16:49→19:55)
[2020-03-21] MEDS ORDERED: PATIENTS OWN MEDICATION (PULMICORT 360 MCG) INH SCH (22:00)
[2020-03-21] MEDS ORDERED: BUDESONIDE (INHALATION) 0.5 MG/2 ML NEB NEB SCH (22:00)
[2020-03-21] MEDS: ATORVASTATIN 20 MG TAB PO SCH (22:43)
[2020-03-22] VITALS: BP 121/77
[2020-03-22 06:21] LABS: Basophils # (auto) 0 10 ^3/uL (0-0.2); Basophils % (auto) 0.3 % (0.0-2.0); Eosinophils # (auto) 0 10 ^3/uL (0-0.8); Eosinophils % (auto) 0.1 % (0.0-7.0); Hematocrit 41.1 % (36.0-46.0); Lymphocytes # (auto) 1.2 10 ^3/uL (0.4-5.4); Mean Corpuscular Hemoglobin 30.6 pg (28.0-32.0); Mean Corpuscular Hgb Conc. 34.2 g/dL (32.0-36.0); Mean Corpuscular Volume 89.6 fL (80.0-100.0); Monocytes # (auto) 0.5 10 ^3/uL (0-1.3); Monocytes % (auto) 9.5 % (0.0-12.0); Neutrophils # (auto) 3.8 10 ^3/uL (1.6-8.6); Neutrophils % (auto) 68.1 % (37.0-80.0); Nucleated Red Blood Cells % 0.1 %; Platelet Count (auto) 162 10^3/uL (140-450); Red Blood Cells 4.59 10^6/uL (4.0-5.20); Red Cell Distribution Width 15.4 % (11.8-14.3); White Blood Cell 5.6 10^3/uL (4.4-10.8)
[2020-03-22 06:33] LABS: Potassium 3.9 mmol/L (3.5-5.1)
[2020-03-22 06:48] LABS: Albumin 2.5 g/dL (3.4-5.0); BUN/Creatinine Ratio 19.5; Bilirubin, Total 0.3 mg/dL (0.2-1.0); CRP High Sensitivity 2.07 mg/dL (< 0.3)
[2020-03-22] MEDS: InsuLIN REG 1unit/0.01ml Soln (100units/ml) SC SCH ×4 (07:00→22:00)
[2020-03-22] MEDS: ACCU-CHEK COMFORT CURVE STRIP VI SCH ×4 (07:12→22:05)
[2020-03-22 08:00] VITALS: BP 94/59
[2020-03-22] MEDS: ALBUTEROL SULF HFA 90MCG INH 200DOSE IN PRN ×2 (08:37→20:14)
[2020-03-22] MEDS: BUDESONIDE (INHALATION) 180 MCG IH IN SCH ×2 (08:37→20:14)
[2020-03-22] MEDS: AZITHROMYCIN 500MG/ 250ML 250 ML IV SCH (10:04)
[2020-03-22] MEDS: ZINC SULFATE 220mg CAP or TAB PO SCH (10:04)
[2020-03-22] MEDS: ASCORBIC ACID 500 MG TAB PO SCH ×2 (10:04→22:05)
[2020-03-22] MEDS: ENOXAPARIN SOD 80 MG/0.8ML SYRINGE SC SCH ×2 (10:04→22:05)
[2020-03-22] MEDS: FUROSEMIDE 40 MG TAB PO SCH (10:05)
[2020-03-22] MEDS: ASPirin 81 mg TAB PO SCH (10:05)
[2020-03-22] MEDS: SERTRALINE HCL 50 MG TAB PO SCH (10:05)
[2020-03-22] MEDS: CLOPIDOGREL BISULFATE 75 MG TAB PO SCH (10:05)
[2020-03-22] MEDS: PANTOPRAZOLE 40 MG TAB PO SCH (10:05)
[2020-03-22] MEDS: GABAPENTIN 300 MG CAP PO SCH ×2 (10:05→22:05)
[2020-03-22] MEDS: CARVEDILOL 3.125 MG TAB PO SCH ×2 (10:06→22:04)
[2020-03-22] MEDS: DexAMETHasone SOD PHOS 10MG/1ML VIAL INJ IV SCH (10:10)
[2020-03-22] MEDS: CHOLECALCIFEROL (VITD3) 2,000 UNIT CAP PO SCH (10:10)
[2020-03-22] MEDS: cefTRIAXone 1GM/50ML D5W 50 ML IV SCH (10:11)
[2020-03-22] MEDS: REMDESIVIR 100mg 100 MG in SODIUM CHL 0.9% 230 ML IV SCH (14:50)
[2020-03-22 16:00] VITALS: BP 127/78
[2020-03-22] MEDS: ATORVASTATIN 20 MG TAB PO SCH (22:05)
[2020-03-22 23:04] VITALS: BP 127/74
[2020-03-23 05:52] LABS: Albumin 2.9 g/dL (3.4-5.0); Calcium 8.3 mg/dL (8.5-10.1); Potassium 3.7 mmol/L (3.5-5.1)
[2020-03-23 05:54] LABS: BUN/Creatinine Ratio 28.3; Bilirubin, Total 0.4 mg/dL (0.2-1.0); Total Protein 6.6 g/dL (6.4-8.2)
[2020-03-23] MEDS: InsuLIN REG 1unit/0.01ml Soln (100units/ml) SC SCH ×4 (06:44→21:52)
[2020-03-23] MEDS: ACCU-CHEK COMFORT CURVE STRIP VI SCH ×4 (06:44→21:43)
[2020-03-23 08:00] VITALS: BP 109/67
[2020-03-23] MEDS: BUDESONIDE (INHALATION) 180 MCG IH IN SCH ×2 (08:05→20:12)
[2020-03-23] MEDS: cefTRIAXone 1GM/50ML D5W 50 ML IV SCH (09:28)
[2020-03-23] MEDS: DexAMETHasone SOD PHOS 10MG/1ML VIAL INJ IV SCH (09:28)
[2020-03-23] MEDS: ENOXAPARIN SOD 80 MG/0.8ML SYRINGE SC SCH ×2 (09:28→21:43)
[2020-03-23] MEDS: ZINC SULFATE 220mg CAP or TAB PO SCH (09:28)
[2020-03-23] MEDS: CHOLECALCIFEROL (VITD3) 2,000 UNIT CAP PO SCH (09:29)
[2020-03-23] MEDS: FUROSEMIDE 40 MG TAB PO SCH (09:29)
[2020-03-23] MEDS: PANTOPRAZOLE 40 MG TAB PO SCH (09:29)
[2020-03-23] MEDS: CLOPIDOGREL BISULFATE 75 MG TAB PO SCH (09:29)
[2020-03-23] MEDS: ASCORBIC ACID 500 MG TAB PO SCH ×2 (09:29→21:43)
[2020-03-23] MEDS: ASPirin 81 mg TAB PO SCH (09:29)
[2020-03-23] MEDS: SERTRALINE HCL 50 MG TAB PO SCH (09:29)
[2020-03-23] MEDS: CARVEDILOL 3.125 MG TAB PO SCH ×2 (09:30→21:43)
[2020-03-23] MEDS: GABAPENTIN 300 MG CAP PO SCH ×2 (09:49→21:43)
[2020-03-23] MEDS: AZITHROMYCIN 500MG/ 250ML 250 ML IV SCH (11:24)
[2020-03-23 16:00] VITALS: BP 125/79
[2020-03-23] MEDS: traMADol HCL 50 MG TAB PO PRN (16:27)
[2020-03-23] MEDS: REMDESIVIR 100mg 100 MG in SODIUM CHL 0.9% 230 ML IV SCH (16:27)
[2020-03-23] MEDS ORDERED: PRED20TA2 PO (17:39)
[2020-03-23] MEDS ORDERED: ALBUAER3 IN (17:39)
[2020-03-23] MEDS ORDERED: AZIT500T66 PO (17:39)
[2020-03-23] MEDS: ALBUTEROL SULF HFA 90MCG INH 200DOSE IN PRN (20:12)
[2020-03-23] MEDS: ATORVASTATIN 20 MG TAB PO SCH (21:43)
[2020-03-24 00:36] VITALS: BP 115/77
[2020-03-24] MEDS: ACCU-CHEK COMFORT CURVE STRIP VI SCH ×3 (06:48→17:00)
[2020-03-24] MEDS: InsuLIN REG 1unit/0.01ml Soln (100units/ml) SC SCH ×3 (06:48→17:00)
[2020-03-24 07:30] LABS: Potassium 3.6 mmol/L (3.5-5.1)
[2020-03-24 07:40] VITALS: BP 115/75
[2020-03-24 07:43] LABS: Albumin 2.9 g/dL (3.4-5.0); BUN/Creatinine Ratio 37.5; Bilirubin, Total 0.5 mg/dL (0.2-1.0); Calcium 8.8 mg/dL (8.5-10.1); Total Protein 6.6 g/dL (6.4-8.2)
[2020-03-24] MEDS: cefTRIAXone 1GM/50ML D5W 50 ML IV SCH (08:22)
[2020-03-24] MEDS: CLOPIDOGREL BISULFATE 75 MG TAB PO SCH (08:22)
[2020-03-24] MEDS: ASCORBIC ACID 500 MG TAB PO SCH (08:22)
[2020-03-24] MEDS: DexAMETHasone SOD PHOS 10MG/1ML VIAL INJ IV SCH (08:22)
[2020-03-24] MEDS: ZINC SULFATE 220mg CAP or TAB PO SCH (08:22)
[2020-03-24] MEDS: ENOXAPARIN SOD 80 MG/0.8ML SYRINGE SC SCH (08:22)
[2020-03-24] MEDS: PANTOPRAZOLE 40 MG TAB PO SCH (08:22)
[2020-03-24] MEDS: traMADol HCL 50 MG TAB PO PRN (08:23)
[2020-03-24] MEDS: CHOLECALCIFEROL (VITD3) 2,000 UNIT CAP PO SCH (08:23)
[2020-03-24] MEDS: ASPirin 81 mg TAB PO SCH (08:23)
[2020-03-24] MEDS: GABAPENTIN 300 MG CAP PO SCH (08:23)
[2020-03-24] MEDS: SERTRALINE HCL 50 MG TAB PO SCH (08:23)
[2020-03-24] MEDS: FUROSEMIDE 40 MG TAB PO SCH (08:25)
[2020-03-24] MEDS: CARVEDILOL 3.125 MG TAB PO SCH (08:26)
[2020-03-24] MEDS: BUDESONIDE (INHALATION) 180 MCG IH IN SCH (10:10)
[2020-03-24] MEDS: AZITHROMYCIN 500MG/ 250ML 250 ML IV SCH (10:48)
[2020-03-24] MEDS: ALBUTEROL SULF HFA 90MCG INH 200DOSE IN PRN (12:39)
[2020-03-24] MEDS: REMDESIVIR 100mg 100 MG in SODIUM CHL 0.9% 230 ML IV SCH (15:00)
[2020-03-24 16:00] VITALS: BP 132/84
== END 2020-03-24 17:08 | disposition home health service (06) | DRG 137 ==
LOC: ER 09:29 → EDBD 09:29 → TELE 22:34 → TELE-WESTW 03-21 04:36
PROVIDERS: ADMIT Hospitalist; ATTEND Hospitalist
PROC: XW033E5 Introduction of Remdesivir Anti-infective into Peripheral Vein, Percutaneous Approach, New Technology Group 5 (ICD-10-PCS; principal; 2020-03-21)
DX: U07.1 COVID-19 (principal); J96.01 Acute respiratory failure with hypoxia; J12.82 Pneumonia due to coronavirus disease 2019; F41.9 Anxiety disorder, unspecified; E66.9 Obesity, unspecified; E11.9 Type 2 diabetes mellitus without complications; F17.210 Nicotine dependence, cigarettes, uncomplicated; F20.9 Schizophrenia, unspecified; I11.0 Hypertensive heart disease with heart failure; J98.11 Atelectasis; I25.10 Atherosclerotic heart disease of native coronary artery without angina pectoris; I50.9 Heart failure, unspecified; F32.9 Major depressive disorder, single episode, unspecified; J44.0 Chronic obstructive pulmonary disease with (acute) lower respiratory infection; Z99.81 Dependence on supplemental oxygen; Z79.02 Long term (current) use of antithrombotics/antiplatelets; Z79.82 Long term (current) use of aspirin; Z82.49 Family history of ischemic heart disease and other diseases of the circulatory system; Z90.5 Acquired absence of kidney; Z90.710 Acquired absence of both cervix and uterus; Z79.899 Other long term (current) drug therapy; Z79.84 Long term (current) use of oral hypoglycemic drugs; Z68.38 Body mass index [BMI] 38.0-38.9, adult; Z88.2 Allergy status to sulfonamides
CPT/HCPCS: 36415; 71045; 71275; 80053; 82728; 82962; 83605; 84484; 85025; 85379; 85610; 85730; 86141; 87040; 87426; 93005; 94640; 96365; 96375; G0378; J0696; J1100; J1815

== ENCOUNTER 2020-08-04 07:39 | Inpatient (IN) | payer MEDICAID ==
[~2020-08-04] VITALS: Ht 162.6 cm; Wt 98.6 kg
[~2020-08-04 07:39] MED LIST changes: +AZIT500T66 PO; -LEVO-28 PO
[2020-08-04] MEDS ORDERED: ALBUTEROL SULF 2.5 MG/0.5ML(0.5%) NEB SOLN NEB ONE (08:00)
[2020-08-04] MEDS ORDERED: methylPREDNISolone SOD SUCC 125 MG/2 ML VL IV ONE (08:00)
[2020-08-04] MEDS ORDERED: IPRATROPIUM BROM 0.5 MG/2.5ML INH SOL NEB ONE (08:00)
[2020-08-04] MEDS ORDERED: FUROSEMIDE 40 MG/4 ML VIAL IV ONE (08:00)
[2020-08-04 08:16] LABS: Basophils # (auto) 0 10 ^3/uL (0-0.2); Basophils % (auto) 0.4 % (0.0-2.0); Eosinophils # (auto) 0 10 ^3/uL (0-0.8); Eosinophils % (auto) 0.3 % (0.0-7.0); Hematocrit 46.3 % (36.0-46.0); Hemoglobin 15.8 g/dL (12.2-16.2); Lymphocytes # (auto) 1.2 10 ^3/uL (0.4-5.4); Lymphocytes % (auto) 9.2 % (10.0-50.0); Mean Corpuscular Hemoglobin 30.8 pg (28.0-32.0); Mean Corpuscular Hgb Conc. 34.2 g/dL (32.0-36.0); Mean Corpuscular Volume 90.2 fL (80.0-100.0); Monocytes # (auto) 0.7 10 ^3/uL (0-1.3); Monocytes % (auto) 5.4 % (0.0-12.0); Neutrophils # (auto) 10.8 10 ^3/uL (1.6-8.6); Neutrophils % (auto) 84.7 % (37.0-80.0); Platelet Count (auto) 210 10^3/uL (140-450); Red Blood Cells 5.14 10^6/uL (4.0-5.20); Red Cell Distribution Width 18.5 % (11.8-14.3); White Blood Cell 12.7 10^3/uL (4.4-10.8)
[2020-08-04 08:37] LABS: Alanine Aminotransferase 24 U/L (13-56); Albumin 3.2 g/dL (3.4-5.0); Anion Gap 3 (5-15); Blood Urea Nitrogen 23 mg/dL (7-18); Calcium 9.4 mg/dL (8.5-10.1); Carbon Dioxide 37 mmol/L (21-32); Chloride 98 mmol/L (98-107); Glucose 138 mg/dL (74-106); Potassium 4.4 mmol/L (3.5-5.1); Sodium 138 mmol/L (136-145)
[2020-08-04 08:41] LABS: Alkaline Phosphatase 57 U/L (45-117); Aspartate Aminotransferase 12 U/L (15-37); BUN/Creatinine Ratio 31.9; Bilirubin, Total 0.2 mg/dL (0.2-1.0); GFR African American 109 mL/min; GFR Non-African American 90 mL/min; Total Protein 6.7 g/dL (6.4-8.2)
[2020-08-04 08:58] LABS: Urine Bacteria MANY /hpf (None Seen); Urine Blood 2+ /uL (Negative); Urine Hyaline Cast FEW /lpf (0 - 2); Urine Mucus FEW (None Seen); Urine Specific Gravity 1.011 (1.001-1.035); Urine WBC 13 /hpf (0 - 5)
[2020-08-04] MEDS ORDERED: cefTRIAXone 1GM/50ML D5W 50 ML IV ONE (09:30)
[2020-08-04] MEDS ORDERED: NITROGLYCERIN 0.4 MG SL TAB SL PRN (10:30)
[2020-08-04] MEDS ORDERED: MORPHINE SULF INJ 2 MG/ML SYRINGE 1ML IV PRN ×2 (10:30)
[2020-08-04] MEDS ORDERED: ONDANSETRON HCL 4 MG/2 ML VIAL IV PRN (10:30)
[2020-08-04] MEDS ORDERED: ALBUTEROL SULF HFA 90MCG INH 200DOSE IN PRN (10:30)
[2020-08-04] MEDS ORDERED: ACETAMINOPHEN 325 MG TAB PO PRN (10:30)
[2020-08-04 13:13] LABS: Alcohol, Urine < 3.0 mg/dL (0-10); Amphetamine Screen, Urine NEGATIVE (NEGATIVE); Barbiturate Scree,Urine NEGATIVE (NEGATIVE); Benzodiazephine Screen, Urine NEGATIVE (NEGATIVE); Cannabinoid Screen, Urine NEGATIVE (NEGATIVE); Cocaine Screen, Urine NEGATIVE (NEGATIVE); Opiate Scree,Urine NEGATIVE (NEGATIVE); Phencyclidine Screen, Urine NEGATIVE (NEGATIVE)
[2020-08-04] MEDS: methylPREDNISolone SOD SUCC 40 MG/ML VL IV SCH ×2 (14:00→23:45)
[2020-08-04 14:01] VITALS: BP 114/81
[2020-08-04 23:32] VITALS: BP 138/90
[2020-08-04] MEDS: CARVEDILOL 3.125 MG TAB PO SCH (23:44)
[2020-08-04] MEDS: ATORVASTATIN 20 MG TAB PO SCH (23:45)
[2020-08-04] MEDS: GABAPENTIN 300 MG CAP PO SCH (23:45)
[2020-08-04] MEDS: HYDROcodone-ACET 5/325MG TAB PO PRN (23:46)
[2020-08-04] MEDS ORDERED: TRAM50TA2 PO (23:55)
[2020-08-04] MEDS ORDERED: POTA10TA51 PO (23:55)
[2020-08-04] MEDS ORDERED: CEPH250C28 PO (23:55)
[2020-08-04] MEDS ORDERED: PRAV20TA3 PO (23:55)
[2020-08-04] MEDS ORDERED: RISP3TAB44 PO (23:55)
[2020-08-05 05:16] VITALS: BP 131/69
[2020-08-05] MEDS: methylPREDNISolone SOD SUCC 40 MG/ML VL IV SCH ×3 (06:00→21:59)
[2020-08-05 06:18] LABS: Basophils # (auto) 0 10 ^3/uL (0-0.2); Basophils % (auto) 0.3 % (0.0-2.0); Eosinophils # (auto) 0 10 ^3/uL (0-0.8); Eosinophils % (auto) 0.1 % (0.0-7.0); Hematocrit 49.6 % (36.0-46.0); Hemoglobin 16.8 g/dL (12.2-16.2); Lymphocytes # (auto) 1.2 10 ^3/uL (0.4-5.4); Lymphocytes % (auto) 12.2 % (10.0-50.0); Mean Corpuscular Hemoglobin 30.2 pg (28.0-32.0); Mean Corpuscular Hgb Conc. 33.9 g/dL (32.0-36.0); Monocytes # (auto) 0.4 10 ^3/uL (0-1.3); Monocytes % (auto) 4.5 % (0.0-12.0); Neutrophils # (auto) 8.3 10 ^3/uL (1.6-8.6); Neutrophils % (auto) 82.9 % (37.0-80.0); Nucleated Red Blood Cells % 0.2 %; Platelet Count (auto) 215 10^3/uL (140-450); Red Blood Cells 5.57 10^6/uL (4.0-5.20); Red Cell Distribution Width 18.5 % (11.8-14.3)
[2020-08-05 06:37] LABS: BUN/Creatinine Ratio 33.3; Calcium 9.3 mg/dL (8.5-10.1); Magnesium 2.6 mg/dL (1.6-2.6); Potassium 4.4 mmol/L (3.5-5.1)
[2020-08-05] MEDS ORDERED: REGADENOSON 0.4 MG/5 ML SYRG IV ONE (08:30)
[2020-08-05 09:00] VITALS: BP 119/79
[2020-08-05 09:29] VITALS: BP 107/69
[2020-08-05] MEDS: cefTRIAXone 1GM/50ML D5W 50 ML IV SCH (10:56)
[2020-08-05] MEDS: GABAPENTIN 300 MG CAP PO SCH ×2 (10:56→21:58)
[2020-08-05] MEDS: SERTRALINE HCL 50 MG TAB PO SCH (10:56)
[2020-08-05] MEDS: ASPirin 81 mg TAB PO SCH (10:56)
[2020-08-05] MEDS: PANTOPRAZOLE 40 MG TAB PO SCH (10:57)
[2020-08-05] MEDS: CLOPIDOGREL BISULFATE 75 MG TAB PO SCH (10:57)
[2020-08-05] MEDS: CARVEDILOL 3.125 MG TAB PO SCH ×2 (10:57→21:59)
[2020-08-05] MEDS: HYDROcodone-ACET 5/325MG TAB PO PRN ×2 (11:06→18:44)
[2020-08-05 13:00] VITALS: BP 129/75
[2020-08-05 17:00] VITALS: BP 124/85
[2020-08-05] MEDS: ATORVASTATIN 20 MG TAB PO SCH (21:59)
[2020-08-05 22:00] VITALS: BP 132/78
[2020-08-06 05:00] VITALS: BP 128/82
[2020-08-06] MEDS: methylPREDNISolone SOD SUCC 40 MG/ML VL IV SCH ×3 (05:46→21:50)
[2020-08-06] MEDS: HYDROcodone-ACET 5/325MG TAB PO PRN ×3 (05:46→18:15)
[2020-08-06 06:41] LABS: Basophils # (auto) 0 10 ^3/uL (0-0.2); Basophils % (auto) 0.3 % (0.0-2.0); Eosinophils # (auto) 0 10 ^3/uL (0-0.8); Eosinophils % (auto) 0.1 % (0.0-7.0); Hematocrit 49.1 % (36.0-46.0); Hemoglobin 16.9 g/dL (12.2-16.2); Lymphocytes # (auto) 0.9 10 ^3/uL (0.4-5.4); Lymphocytes % (auto) 8.2 % (10.0-50.0); Mean Corpuscular Hemoglobin 30.6 pg (28.0-32.0); Mean Corpuscular Hgb Conc. 34.5 g/dL (32.0-36.0); Mean Corpuscular Volume 88.8 fL (80.0-100.0); Monocytes # (auto) 0.2 10 ^3/uL (0-1.3); Neutrophils # (auto) 10.2 10 ^3/uL (1.6-8.6); Neutrophils % (auto) 89.4 % (37.0-80.0); Nucleated Red Blood Cells % 0.1 %; Platelet Count (auto) 216 10^3/uL (140-450); Red Blood Cells 5.53 10^6/uL (4.0-5.20); Red Cell Distribution Width 18.1 % (11.8-14.3); White Blood Cell 11.4 10^3/uL (4.4-10.8)
[2020-08-06 06:44] LABS: Calcium 8.9 mg/dL (8.5-10.1); Potassium 4.8 mmol/L (3.5-5.1)
[2020-08-06 06:48] LABS: BUN/Creatinine Ratio 34.9; Magnesium 2.6 mg/dL (1.6-2.6)
[2020-08-06 09:00] VITALS: BP 121/76
[2020-08-06] MEDS: cefTRIAXone 1GM/50ML D5W 50 ML IV SCH (09:44)
[2020-08-06] MEDS: PANTOPRAZOLE 40 MG TAB PO SCH (09:44)
[2020-08-06] MEDS: CLOPIDOGREL BISULFATE 75 MG TAB PO SCH (09:44)
[2020-08-06] MEDS: GABAPENTIN 300 MG CAP PO SCH ×2 (09:44→21:51)
[2020-08-06] MEDS: SERTRALINE HCL 50 MG TAB PO SCH (09:44)
[2020-08-06] MEDS: ASPirin 81 mg TAB PO SCH (09:44)
[2020-08-06] MEDS: CARVEDILOL 3.125 MG TAB PO SCH ×2 (09:46→21:51)
[2020-08-06] MEDS ORDERED: METOPROLOL SUCCINATE XL 50 MG TAB PO SCH (10:00)
[2020-08-06] MEDS: IPRATROPIUM BROM 0.5 MG/2.5ML INH SOL NEB PRN ×2 (11:41→12:23)
[2020-08-06] MEDS: ALBUTEROL SULF 2.5 MG/0.5ML(0.5%) NEB SOLN NEB PRN ×2 (11:41→12:23)
[2020-08-06 13:00] VITALS: BP 132/83
[2020-08-06] MEDS ORDERED: IPRATROPIUM BROM 0.5 MG/2.5ML INH SOL NEB SCH (14:00)
[2020-08-06] MEDS ORDERED: ALBUTEROL SULF 2.5 MG/0.5ML(0.5%) NEB SOLN NEB SCH (14:00)
[2020-08-06 17:16] VITALS: BP 131/83
[2020-08-06 21:41] VITALS: BP 140/83
[2020-08-06] MEDS: ATORVASTATIN 20 MG TAB PO SCH (21:51)
[2020-08-07] MEDS: HYDROcodone-ACET 5/325MG TAB PO PRN ×2 (01:14→09:12)
[2020-08-07 05:12] VITALS: BP 130/83
[2020-08-07] MEDS: methylPREDNISolone SOD SUCC 40 MG/ML VL IV SCH ×2 (06:15→14:00)
[2020-08-07] MEDS: ASPirin 81 mg TAB PO SCH (09:10)
[2020-08-07] MEDS: cefTRIAXone 1GM/50ML D5W 50 ML IV SCH (09:10)
[2020-08-07] MEDS: CARVEDILOL 3.125 MG TAB PO SCH (09:11)
[2020-08-07] MEDS: SERTRALINE HCL 50 MG TAB PO SCH (09:11)
[2020-08-07] MEDS: CLOPIDOGREL BISULFATE 75 MG TAB PO SCH (09:12)
[2020-08-07] MEDS: PANTOPRAZOLE 40 MG TAB PO SCH (09:12)
[2020-08-07] MEDS: GABAPENTIN 300 MG CAP PO SCH (09:12)
[2020-08-07 09:22] VITALS: BP 98/68
[2020-08-07 11:58] VITALS: BP 98/68
== END 2020-08-07 14:00 | disposition home or self-care (01) | DRG 140 ==
LOC: ER 07:39 → TELE 10:22 → TELE-EAST 21:58
PROVIDERS: ADMIT Internal Medicine; ATTEND Internal Medicine
DX: J44.1 Chronic obstructive pulmonary disease with (acute) exacerbation (principal); J96.20 Acute and chronic respiratory failure, unspecified whether with hypoxia or hypercapnia; I11.0 Hypertensive heart disease with heart failure; I50.9 Heart failure, unspecified; E66.01 Morbid (severe) obesity due to excess calories; E11.9 Type 2 diabetes mellitus without complications; Z20.822 Contact with and (suspected) exposure to COVID-19; I25.10 Atherosclerotic heart disease of native coronary artery without angina pectoris; F17.210 Nicotine dependence, cigarettes, uncomplicated; J98.11 Atelectasis; Z71.3 Dietary counseling and surveillance; Z79.899 Other long term (current) drug therapy; Z79.891 Long term (current) use of opiate analgesic; Z82.49 Family history of ischemic heart disease and other diseases of the circulatory system; Z88.2 Allergy status to sulfonamides; Z79.82 Long term (current) use of aspirin; N39.0 Urinary tract infection, site not specified; Z68.35 Body mass index [BMI] 35.0-35.9, adult; Z79.02 Long term (current) use of antithrombotics/antiplatelets
CPT/HCPCS: 36415; 36600; 71045; 78452; 80048; 80053; 80307; 81001; 81025; 82805; 82962; 83735; 83880; 84484; 85025; 87081; 87426; 93005; 93017; 93306; 94640; 96365; 96375; 99291; G0378; J0696

== ENCOUNTER 2020-08-14 06:47 | Inpatient (IN) | payer MEDICAID ==
[~2020-08-14] VITALS: Ht 170.2 cm; Wt 100.3 kg
[~2020-08-14 06:47] MED LIST changes: +CEPH250C28 PO; +POTA10TA51 PO; +PRAV20TA3 PO; +RISP3TAB44 PO; +TRAM50TA2 PO
[2020-08-14] MEDS ORDERED: IPRATROPIUM BROM 0.5 MG/2.5ML INH SOL ONE (06:57)
[2020-08-14] MEDS ORDERED: ALBUTEROL SULF 2.5 MG/0.5ML(0.5%) NEB SOLN ONE (06:57)
[2020-08-14] MEDS ORDERED: methylPREDNISolone SOD SUCC 125 MG/2 ML VL IV ONE (07:15)
[2020-08-14] MEDS ORDERED: IPRATROPIUM BROM 0.5 MG/2.5ML INH SOL NEB ONE (07:15)
[2020-08-14] MEDS ORDERED: ASPirin 81 mg TAB PO ONE (07:15)
[2020-08-14] MEDS ORDERED: FUROSEMIDE 40 MG/4 ML VIAL IV ONE (07:15)
[2020-08-14] MEDS ORDERED: ALBUTEROL SULF 2.5 MG/0.5ML(0.5%) NEB SOLN NEB ONE (07:15)
[2020-08-14] MEDS ORDERED: MAGNESIUM SULFATE 1GM/100ML 100 ML IV ONE (07:15)
[2020-08-14] MEDS ORDERED: cefTRIAXone 1GM/50ML D5W 50 ML IV ONE (08:15)
[2020-08-14] MEDS ORDERED: AZITHROMYCIN 500MG/ 250ML 250 ML IV ONE (08:15)
[2020-08-14 08:42] LABS: Basophils # (auto) 0 10 ^3/uL (0-0.2); Basophils % (auto) 0.1 % (0.0-2.0); Eosinophils # (auto) 0 10 ^3/uL (0-0.8); Hemoglobin 15.4 g/dL (12.2-16.2); Lymphocytes # (auto) 0.6 10 ^3/uL (0.4-5.4); Lymphocytes % (auto) 4.1 % (10.0-50.0); Mean Corpuscular Hemoglobin 29.7 pg (28.0-32.0); Mean Corpuscular Hgb Conc. 32.9 g/dL (32.0-36.0); Mean Corpuscular Volume 90.4 fL (80.0-100.0); Monocytes % (auto) 6.5 % (0.0-12.0); Neutrophils % (auto) 89.3 % (37.0-80.0); Nucleated Red Blood Cells % 0.1 %; Platelet Count (auto) 176 10^3/uL (140-450); Red Cell Distribution Width 17.9 % (11.8-14.3); White Blood Cell 14.6 10^3/uL (4.4-10.8)
[2020-08-14 08:56] LABS: Albumin 3.1 g/dL (3.4-5.0); Calcium 8.8 mg/dL (8.5-10.1); Potassium 4.4 mmol/L (3.5-5.1)
[2020-08-14 09:01] LABS: BUN/Creatinine Ratio 37.1; Bilirubin, Total 0.3 mg/dL (0.2-1.0); Total Protein 6.5 g/dL (6.4-8.2)
[2020-08-14 09:08] LABS: INR 0.85 (0.9-1.15); Partial Thromboplastin Time 20.7 sec (23.0-31.2)
[2020-08-14 09:10] LABS: Urine Bacteria NONE SEEN /hpf (None Seen); Urine Blood Negative /uL (Negative); Urine Hyaline Cast FEW /lpf (0 - 2); Urine Specific Gravity 1.015 (1.001-1.035); Urine WBC 1 /hpf (0 - 5)
[2020-08-14] MEDS ORDERED: ACETAMINOPHEN 325 MG TAB PO ONE (15:15)
[2020-08-14] MEDS ORDERED: MORPHINE SULF INJ 2 MG/ML SYRINGE 1ML IV PRN (15:30)
[2020-08-14] MEDS ORDERED: NITROGLYCERIN 0.4 MG SL TAB SL PRN (15:30)
[2020-08-14 15:48] VITALS: BP 134/78
[2020-08-14] MEDS: IPRATROPIUM BROM 0.5 MG/2.5ML INH SOL NEB SCH (18:20)
[2020-08-14] MEDS: ALBUTEROL SULF 2.5 MG/0.5ML(0.5%) NEB SOLN NEB SCH (18:20)
[2020-08-14 19:20] VITALS: BP 133/80
[2020-08-14 22:00] VITALS: BP 115/76
[2020-08-15] MEDS ORDERED: DEXTROSE (50%) 50ML SYRG IV PRN (00:15)
[2020-08-15] MEDS: ALBUTEROL SULF 2.5 MG/0.5ML(0.5%) NEB SOLN NEB SCH ×4 (00:47→19:09)
[2020-08-15] MEDS: IPRATROPIUM BROM 0.5 MG/2.5ML INH SOL NEB SCH ×4 (00:47→19:09)
[2020-08-15 05:43] VITALS: BP 125/75
[2020-08-15] MEDS: ACCU-CHEK COMFORT CURVE STRIP VI SCH ×4 (06:15→22:00)
[2020-08-15] MEDS: InsuLIN REG 1unit/0.01ml Soln (100units/ml) SC SCH ×4 (06:25→22:00)
[2020-08-15 09:00] VITALS: BP 134/81
[2020-08-15] MEDS: levoFLOXacin 750MG 150 ML IV SCH (10:22)
[2020-08-15] MEDS: cefTRIAXone 1GM/50ML D5W 50 ML IV SCH (10:22)
[2020-08-15] MEDS: ENOXAPARIN SOD 40 MG/0.4 ML SYRINGE SC SCH (10:23)
[2020-08-15] MEDS: methylPREDNISolone SOD SUCC 40 MG/ML VL IV SCH (10:23)
[2020-08-15] MEDS ORDERED: HYOSCYAMINE SULF 0.125 MG ODT TAB PO PRN (13:00)
[2020-08-15 13:07] VITALS: BP 148/80
[2020-08-15] MEDS: traMADol HCL 50 MG TAB PO SCH ×3 (14:00→22:16)
[2020-08-15 16:55] VITALS: BP 133/92
[2020-08-15] MEDS: FUROSEMIDE 40 MG/4 ML VIAL IV SCH (17:59)
[2020-08-15 22:00] VITALS: BP 144/78
[2020-08-15] MEDS: GABAPENTIN 300 MG CAP PO SCH (22:15)
[2020-08-15] MEDS: ATORVASTATIN 20 MG TAB PO SCH (22:15)
[2020-08-15] MEDS: POTASSIUM CHL 20 Meq TABLET PO SCH (22:15)
[2020-08-15] MEDS: risperiDONE 1 MG TAB PO SCH (22:15)
[2020-08-15] MEDS: CARVEDILOL 3.125 MG TAB PO SCH (22:18)
[2020-08-16] MEDS: IPRATROPIUM BROM 0.5 MG/2.5ML INH SOL NEB SCH ×4 (00:34→18:23)
[2020-08-16] MEDS: ALBUTEROL SULF 2.5 MG/0.5ML(0.5%) NEB SOLN NEB SCH ×4 (00:34→18:23)
[2020-08-16 05:00] VITALS: BP 106/70
[2020-08-16] MEDS: ACCU-CHEK COMFORT CURVE STRIP VI SCH ×4 (06:15→21:35)
[2020-08-16] MEDS: traMADol HCL 50 MG TAB PO SCH ×3 (06:24→21:35)
[2020-08-16] MEDS: FUROSEMIDE 40 MG/4 ML VIAL IV SCH ×2 (06:24→18:00)
[2020-08-16] MEDS: InsuLIN REG 1unit/0.01ml Soln (100units/ml) SC SCH ×4 (06:25→22:00)
[2020-08-16 07:14] LABS: Potassium 3.6 mmol/L (3.5-5.1)
[2020-08-16 07:20] LABS: BUN/Creatinine Ratio 38.8; Calcium 8.8 mg/dL (8.5-10.1)
[2020-08-16 08:55] VITALS: BP 111/74
[2020-08-16] MEDS: cefTRIAXone 1GM/50ML D5W 50 ML IV SCH (09:11)
[2020-08-16] MEDS: levoFLOXacin 750MG 150 ML IV SCH (09:34)
[2020-08-16] MEDS: CLOPIDOGREL BISULFATE 75 MG TAB PO SCH (09:35)
[2020-08-16] MEDS: PANTOPRAZOLE 40 MG TAB PO SCH (09:35)
[2020-08-16] MEDS: GABAPENTIN 300 MG CAP PO SCH ×2 (09:35→21:35)
[2020-08-16] MEDS: ASPirin 81 mg TAB PO SCH (09:35)
[2020-08-16] MEDS: methylPREDNISolone SOD SUCC 40 MG/ML VL IV SCH (09:35)
[2020-08-16] MEDS: POTASSIUM CHL 20 Meq TABLET PO SCH ×2 (09:35→21:35)
[2020-08-16] MEDS: risperiDONE 1 MG TAB PO SCH ×2 (09:36→21:35)
[2020-08-16] MEDS: ENOXAPARIN SOD 40 MG/0.4 ML SYRINGE SC SCH (09:36)
[2020-08-16] MEDS: SERTRALINE HCL 50 MG TAB PO SCH (09:36)
[2020-08-16] MEDS: CARVEDILOL 3.125 MG TAB PO SCH ×2 (09:37→21:35)
[2020-08-16] MEDS ORDERED: NICOTINE 21MG/24 HR TOPICAL PATCH TD SCH (10:45)
[2020-08-16] MEDS ORDERED: NICOTINE 21MG/24 HR TOPICAL PATCH TD ONE (11:00)
[2020-08-16 13:07] VITALS: BP 131/57
[2020-08-16 16:53] VITALS: BP 114/60
[2020-08-16] MEDS: BUDESONIDE (INHALATION) 0.5 MG/2 ML NEB NEB SCH (18:23)
[2020-08-16] MEDS: ATORVASTATIN 20 MG TAB PO SCH (21:35)
[2020-08-16 22:00] VITALS: BP 113/83
[2020-08-17 05:00] VITALS: BP 115/71
[2020-08-17] MEDS: traMADol HCL 50 MG TAB PO SCH ×2 (06:00→15:17)
[2020-08-17] MEDS: FUROSEMIDE 40 MG/4 ML VIAL IV SCH ×2 (06:00→17:53)
[2020-08-17] MEDS: InsuLIN REG 1unit/0.01ml Soln (100units/ml) SC SCH ×3 (06:34→17:00)
[2020-08-17] MEDS: IPRATROPIUM BROM 0.5 MG/2.5ML INH SOL NEB SCH ×4 (06:52→18:26)
[2020-08-17] MEDS: ALBUTEROL SULF 2.5 MG/0.5ML(0.5%) NEB SOLN NEB SCH ×4 (06:52→18:26)
[2020-08-17] MEDS: ACCU-CHEK COMFORT CURVE STRIP VI SCH ×3 (07:00→17:00)
[2020-08-17] MEDS: BUDESONIDE (INHALATION) 0.5 MG/2 ML NEB NEB SCH ×2 (08:35→18:26)
[2020-08-17 09:00] VITALS: BP 116/72
[2020-08-17] MEDS: methylPREDNISolone SOD SUCC 40 MG/ML VL IV SCH (09:23)
[2020-08-17] MEDS: ENOXAPARIN SOD 40 MG/0.4 ML SYRINGE SC SCH (09:24)
[2020-08-17] MEDS: PANTOPRAZOLE 40 MG TAB PO SCH (09:24)
[2020-08-17] MEDS: ASPirin 81 mg TAB PO SCH (09:24)
[2020-08-17] MEDS: GABAPENTIN 300 MG CAP PO SCH (09:24)
[2020-08-17] MEDS: risperiDONE 1 MG TAB PO SCH (09:25)
[2020-08-17] MEDS: SERTRALINE HCL 50 MG TAB PO SCH (09:25)
[2020-08-17] MEDS: CARVEDILOL 3.125 MG TAB PO SCH (09:26)
[2020-08-17] MEDS: CLOPIDOGREL BISULFATE 75 MG TAB PO SCH (09:27)
[2020-08-17] MEDS: cefTRIAXone 1GM/50ML D5W 50 ML IV SCH (09:27)
[2020-08-17] MEDS: POTASSIUM CHL 20 Meq TABLET PO SCH (09:27)
[2020-08-17] MEDS: levoFLOXacin 750MG 150 ML IV SCH (09:28)
[2020-08-17] MEDS ORDERED: NICOTINE 21MG/24 HR TOPICAL PATCH TD SCH (10:00)
[2020-08-17] MEDS ORDERED: IPRA0.00 IN (12:28)
[2020-08-17] MEDS ORDERED: DOXY-332 PO (12:28)
[2020-08-17] MEDS ORDERED: PRED20TA2 PO (12:28)
[2020-08-17 14:08] VITALS: BP 116/72
== END 2020-08-17 18:30 | disposition home or self-care (01) | DRG 140 ==
LOC: ER 06:47 → EDBD 06:47 → TELE 15:26 → TELE-WESTW 20:30
PROVIDERS: ADMIT Hospitalist; ATTEND Hospitalist
DX: J44.1 Chronic obstructive pulmonary disease with (acute) exacerbation (principal); J96.21 Acute and chronic respiratory failure with hypoxia; I11.0 Hypertensive heart disease with heart failure; I50.9 Heart failure, unspecified; J44.0 Chronic obstructive pulmonary disease with (acute) lower respiratory infection; E11.9 Type 2 diabetes mellitus without complications; J20.9 Acute bronchitis, unspecified; E66.9 Obesity, unspecified; Z68.34 Body mass index [BMI] 34.0-34.9, adult; F17.210 Nicotine dependence, cigarettes, uncomplicated; Z20.822 Contact with and (suspected) exposure to COVID-19; F41.9 Anxiety disorder, unspecified; J98.11 Atelectasis; Z79.02 Long term (current) use of antithrombotics/antiplatelets; Z79.82 Long term (current) use of aspirin; Z79.899 Other long term (current) drug therapy; Z82.49 Family history of ischemic heart disease and other diseases of the circulatory system; Z90.710 Acquired absence of both cervix and uterus; Z90.49 Acquired absence of other specified parts of digestive tract; Z88.2 Allergy status to sulfonamides; Z88.8 Allergy status to other drugs, medicaments and biological substances
CPT/HCPCS: 36415; 71045; 80048; 80053; 81001; 82962; 83605; 83880; 84484; 85025; 85610; 85730; 87040; 87081; 87426; 94640; 96365; 96367; 96375; 99291; G0378; J0696; J1815; J1956

== ENCOUNTER 2020-09-10 07:45 | Inpatient (IN) | payer MEDICAID ==
[~2020-09-10] VITALS: Ht 167.6 cm; Wt 101.2 kg
[~2020-09-10 07:45] MED LIST changes: -AZIT500T66 PO; -CEPH250C28 PO; +DOXY-332 PO; +IPRA0.00 IN
[2020-09-10 08:39] LABS: Hematocrit 43.9 % (36.0-46.0); Hemoglobin 14.8 g/dL (12.2-16.2); Mean Corpuscular Hemoglobin 31.1 pg (28.0-32.0); Mean Corpuscular Hgb Conc. 33.7 g/dL (32.0-36.0); Mean Corpuscular Volume 92.3 fL (80.0-100.0); Red Blood Cells 4.76 10^6/uL (4.0-5.20); White Blood Cell 8.8 10^3/uL (4.4-10.8)
[2020-09-10 08:45] LABS: Red Cell Distribution Width 20.8 % (11.8-14.3)
[2020-09-10 08:48] LABS: Basophils % (manual) 0 (0.0-2.0); Blast Cells 0; Myelocytes % 0; Promyelocytes % 0; Reactive Lymphocytes 0
[2020-09-10 08:54] LABS: INR 0.91 (0.9-1.15)
[2020-09-10 08:57] LABS: Albumin 3.4 g/dL (3.4-5.0); Calcium 8.4 mg/dL (8.5-10.1)
[2020-09-10] MEDS ORDERED: ALBUTEROL SULF 2.5 MG/0.5ML(0.5%) NEB SOLN NEB ONE (09:00)
[2020-09-10] MEDS ORDERED: FUROSEMIDE 40 MG/4 ML VIAL IV ONE (09:00)
[2020-09-10] MEDS ORDERED: IPRATROPIUM BROM 0.5 MG/2.5ML INH SOL NEB ONE (09:00)
[2020-09-10] MEDS ORDERED: methylPREDNISolone SOD SUCC 125 MG/2 ML VL IV ONE (09:00)
[2020-09-10 09:02] LABS: BUN/Creatinine Ratio 15.5; Bilirubin, Total 0.4 mg/dL (0.2-1.0); Total Protein 6.6 g/dL (6.4-8.2)
[2020-09-10 09:12] LABS: Band Neutrophils % (manual) 2; Eosinophils % (manual) 1 (0-7); Lymphocytes % (manual) 21 (10.0-50.0); Metamyelocytes % 3; Monocytes % (manual) 3 (0-12)
[2020-09-10 09:53] LABS: Urine Bacteria NONE SEEN /hpf (None Seen); Urine Blood Negative /uL (Negative); Urine Specific Gravity 1.004 (1.001-1.035); Urine WBC 2 /hpf (0 - 5)
[2020-09-10 11:14] LABS: Amphetamine Screen, Urine NEGATIVE (NEGATIVE); Barbiturate Scree,Urine NEGATIVE (NEGATIVE); Benzodiazephine Screen, Urine NEGATIVE (NEGATIVE); Cannabinoid Screen, Urine NEGATIVE (NEGATIVE); Cocaine Screen, Urine NEGATIVE (NEGATIVE); Opiate Scree,Urine NEGATIVE (NEGATIVE); Phencyclidine Screen, Urine NEGATIVE (NEGATIVE)
[2020-09-10] MEDS ORDERED: ENOXAPARIN SOD 100 MG/1 ML SYRINGE SC ONE (11:15)
[2020-09-10] MEDS ORDERED: ACETAMINOPHEN 325 MG TAB PO PRN (13:45)
[2020-09-10] MEDS ORDERED: NITROGLYCERIN 0.4 MG SL TAB SL PRN (13:45)
[2020-09-10 14:24] VITALS: BP 135/84
[2020-09-10 15:54] VITALS: BP 135/84
[2020-09-10 16:23] VITALS: BP 147/85
[2020-09-10] MEDS ORDERED: IPRATROPIUM BROM 0.5 MG/2.5ML INH SOL NEB PRN (18:00)
[2020-09-10] MEDS ORDERED: ALBUTEROL SULF 2.5 MG/0.5ML(0.5%) NEB SOLN NEB PRN (18:00)
[2020-09-10] MEDS: methylPREDNISolone SOD SUCC 40 MG/ML VL IV SCH (18:30)
[2020-09-10 22:00] VITALS: BP 127/74
[2020-09-10] MEDS: GABAPENTIN 300 MG CAP PO SCH (22:36)
[2020-09-10] MEDS: ATORVASTATIN 20 MG TAB PO SCH (22:36)
[2020-09-10] MEDS: CARVEDILOL 3.125 MG TAB PO SCH (22:36)
[2020-09-10] MEDS: risperiDONE 1 MG TAB PO SCH (22:37)
[2020-09-11] VITALS (7 sets, daily range): BP systolic 114–133; BP diastolic 67–78
[2020-09-11] MEDS: methylPREDNISolone SOD SUCC 40 MG/ML VL IV SCH ×4 (00:06→18:00)
[2020-09-11 07:42] LABS: Basophils # (auto) 0 10 ^3/uL (0-0.2); Basophils % (auto) 0.2 % (0.0-2.0); Eosinophils # (auto) 0 10 ^3/uL (0-0.8); Hematocrit 47.8 % (36.0-46.0); Hemoglobin 16.1 g/dL (12.2-16.2); Lymphocytes # (auto) 1.1 10 ^3/uL (0.4-5.4); Lymphocytes % (auto) 8.9 % (10.0-50.0); Mean Corpuscular Hgb Conc. 33.7 g/dL (32.0-36.0); Mean Corpuscular Volume 91.9 fL (80.0-100.0); Monocytes # (auto) 0.6 10 ^3/uL (0-1.3); Monocytes % (auto) 4.7 % (0.0-12.0); Neutrophils # (auto) 10.6 10 ^3/uL (1.6-8.6); Neutrophils % (auto) 86.2 % (37.0-80.0); Nucleated Red Blood Cells % 0.3 %; Red Blood Cells 5.19 10^6/uL (4.0-5.20); White Blood Cell 12.3 10^3/uL (4.4-10.8)
[2020-09-11 07:54] LABS: Red Cell Distribution Width 21.1 % (11.8-14.3)
[2020-09-11 08:05] LABS: BUN/Creatinine Ratio 24.5; Calcium 8.6 mg/dL (8.5-10.1); Potassium 3.7 mmol/L (3.5-5.1)
[2020-09-11] MEDS: ENOXAPARIN SOD 40 MG/0.4 ML SYRINGE SC SCH (09:18)
[2020-09-11] MEDS: FUROSEMIDE 40 MG/4 ML VIAL IV SCH (09:18)
[2020-09-11] MEDS: GABAPENTIN 300 MG CAP PO SCH ×2 (09:19→22:33)
[2020-09-11] MEDS: risperiDONE 1 MG TAB PO SCH ×2 (09:19→22:33)
[2020-09-11] MEDS: SERTRALINE HCL 50 MG TAB PO SCH (09:19)
[2020-09-11] MEDS: POTASSIUM CHL 10 Meq TABLET PO SCH (09:19)
[2020-09-11] MEDS: ASPirin 81 mg TAB PO SCH (09:20)
[2020-09-11] MEDS: CLOPIDOGREL BISULFATE 75 MG TAB PO SCH (09:20)
[2020-09-11] MEDS: PANTOPRAZOLE 40 MG TAB PO SCH (09:20)
[2020-09-11] MEDS: CARVEDILOL 3.125 MG TAB PO SCH ×2 (09:21→22:33)
[2020-09-11] MEDS ORDERED: FUROSEMIDE 40 MG TAB PO SCH (10:00)
[2020-09-11] MEDS ORDERED: traMADol HCL 50 MG TAB PO PRN (11:15)
[2020-09-11] MEDS ORDERED: ACETAMINOPHEN 325 MG TAB PO PRN (12:45)
[2020-09-11] MEDS: HYDROcodone-ACET 10/325MG TAB PO PRN ×2 (12:52→22:19)
[2020-09-11] MEDS: ATORVASTATIN 20 MG TAB PO SCH (22:33)
[2020-09-12] MEDS: methylPREDNISolone SOD SUCC 40 MG/ML VL IV SCH ×4 (00:43→18:55)
[2020-09-12 05:00] VITALS: BP 139/72
[2020-09-12] MEDS: HYDROcodone-ACET 10/325MG TAB PO PRN ×3 (06:13→22:37)
[2020-09-12 06:47] LABS: Basophils # (auto) 0 10 ^3/uL (0-0.2); Basophils % (auto) 0.3 % (0.0-2.0); Eosinophils # (auto) 0 10 ^3/uL (0-0.8); Hematocrit 46.8 % (36.0-46.0); Hemoglobin 15.9 g/dL (12.2-16.2); Lymphocytes % (auto) 8.6 % (10.0-50.0); Mean Corpuscular Hemoglobin 31.4 pg (28.0-32.0); Mean Corpuscular Hgb Conc. 33.9 g/dL (32.0-36.0); Mean Corpuscular Volume 92.5 fL (80.0-100.0); Monocytes # (auto) 0.4 10 ^3/uL (0-1.3); Monocytes % (auto) 3.2 % (0.0-12.0); Neutrophils # (auto) 9.8 10 ^3/uL (1.6-8.6); Neutrophils % (auto) 87.9 % (37.0-80.0); Nucleated Red Blood Cells % 0.1 %; Red Blood Cells 5.06 10^6/uL (4.0-5.20); White Blood Cell 11.2 10^3/uL (4.4-10.8)
[2020-09-12 06:50] LABS: Red Cell Distribution Width 20.6 % (11.8-14.3)
[2020-09-12 06:59] LABS: Calcium 8.4 mg/dL (8.5-10.1); Potassium 4.4 mmol/L (3.5-5.1)
[2020-09-12 07:01] LABS: BUN/Creatinine Ratio 41.2
[2020-09-12 09:00] VITALS: BP 138/88
[2020-09-12] MEDS: FUROSEMIDE 40 MG/4 ML VIAL IV SCH (09:46)
[2020-09-12] MEDS: CARVEDILOL 3.125 MG TAB PO SCH ×2 (09:47→22:38)
[2020-09-12] MEDS: POTASSIUM CHL 10 Meq TABLET PO SCH (09:47)
[2020-09-12] MEDS: GABAPENTIN 300 MG CAP PO SCH ×2 (09:48→22:37)
[2020-09-12] MEDS: PANTOPRAZOLE 40 MG TAB PO SCH (09:48)
[2020-09-12] MEDS: SERTRALINE HCL 50 MG TAB PO SCH (09:49)
[2020-09-12] MEDS: risperiDONE 1 MG TAB PO SCH ×2 (09:49→22:36)
[2020-09-12] MEDS: ENOXAPARIN SOD 40 MG/0.4 ML SYRINGE SC SCH (09:51)
[2020-09-12] MEDS: ASPirin 81 mg TAB PO SCH (10:00)
[2020-09-12] MEDS: CLOPIDOGREL BISULFATE 75 MG TAB PO SCH (10:00)
[2020-09-12] MEDS: NICOTINE 21MG/24 HR TOPICAL PATCH TD SCH (10:03)
[2020-09-12] MEDS: traMADol HCL 50 MG TAB PO PRN ×2 (10:07→19:09)
[2020-09-12 13:00] VITALS: BP 130/78
[2020-09-12 17:00] VITALS: BP 104/74
[2020-09-12 20:00] VITALS: BP 120/75
[2020-09-12 22:00] VITALS: BP 120/75
[2020-09-12] MEDS: ATORVASTATIN 20 MG TAB PO SCH (22:37)
[2020-09-13] MEDS: methylPREDNISolone SOD SUCC 40 MG/ML VL IV SCH ×3 (00:20→12:55)
[2020-09-13 05:00] VITALS: BP 125/72
[2020-09-13 06:02] VITALS: BP 125/74
[2020-09-13 06:47] LABS: Basophils # (auto) 0 10 ^3/uL (0-0.2); Eosinophils # (auto) 0 10 ^3/uL (0-0.8); Hematocrit 49.4 % (36.0-46.0); Hemoglobin 16.8 g/dL (12.2-16.2); Lymphocytes # (auto) 0.7 10 ^3/uL (0.4-5.4); Lymphocytes % (auto) 7.2 % (10.0-50.0); Mean Corpuscular Hemoglobin 31.6 pg (28.0-32.0); Mean Corpuscular Hgb Conc. 34.1 g/dL (32.0-36.0); Mean Corpuscular Volume 92.7 fL (80.0-100.0); Monocytes # (auto) 0.3 10 ^3/uL (0-1.3); Neutrophils # (auto) 9.3 10 ^3/uL (1.6-8.6); Neutrophils % (auto) 89.8 % (37.0-80.0); Nucleated Red Blood Cells % 0.3 %; Red Blood Cells 5.33 10^6/uL (4.0-5.20); Red Cell Distribution Width 20.2 % (11.8-14.3); White Blood Cell 10.4 10^3/uL (4.4-10.8)
[2020-09-13 06:57] LABS: Potassium 4.8 mmol/L (3.5-5.1)
[2020-09-13 07:03] LABS: BUN/Creatinine Ratio 45.2; Calcium 9.1 mg/dL (8.5-10.1)
[2020-09-13] MEDS: HYDROcodone-ACET 10/325MG TAB PO PRN ×2 (08:11→16:11)
[2020-09-13 09:00] VITALS: BP 109/60
[2020-09-13] MEDS: CLOPIDOGREL BISULFATE 75 MG TAB PO SCH (10:00)
[2020-09-13] MEDS: ASPirin 81 mg TAB PO SCH (10:00)
[2020-09-13] MEDS: POTASSIUM CHL 10 Meq TABLET PO SCH (10:52)
[2020-09-13] MEDS: GABAPENTIN 300 MG CAP PO SCH (10:53)
[2020-09-13] MEDS: risperiDONE 1 MG TAB PO SCH (10:54)
[2020-09-13] MEDS: PANTOPRAZOLE 40 MG TAB PO SCH (10:54)
[2020-09-13] MEDS: SERTRALINE HCL 50 MG TAB PO SCH (10:54)
[2020-09-13] MEDS: ENOXAPARIN SOD 40 MG/0.4 ML SYRINGE SC SCH (10:55)
[2020-09-13] MEDS: NICOTINE 21MG/24 HR TOPICAL PATCH TD SCH (10:55)
[2020-09-13] MEDS: FUROSEMIDE 40 MG/4 ML VIAL IV SCH (11:14)
[2020-09-13] MEDS: CARVEDILOL 3.125 MG TAB PO SCH (11:14)
[2020-09-13] MEDS ORDERED: PRED20TA2 PO (11:17)
[2020-09-13] MEDS ORDERED: LEVO500T31 PO (11:17)
[2020-09-13] MEDS ORDERED: levoFLOXacin 250 MG TAB PO ONE (11:30)
[2020-09-13] MEDS: traMADol HCL 50 MG TAB PO PRN (12:55)
[2020-09-13 13:00] VITALS: BP 124/86
[2020-09-13 16:42] VITALS: BP 128/75
== END 2020-09-13 17:15 | DRG 133 ==
LOC: ER 07:45 → TELE 13:31 → TELE-EAST 17:10
PROVIDERS: ADMIT Internal Medicine; ATTEND Internal Medicine
PROC: 5A09357 Assistance with Respiratory Ventilation, Less than 24 Consecutive Hours, Continuous Positive Airway Pressure (ICD-10-PCS; principal; 2020-09-10)
DX: J96.21 Acute and chronic respiratory failure with hypoxia (principal); I11.0 Hypertensive heart disease with heart failure; E66.01 Morbid (severe) obesity due to excess calories; I50.9 Heart failure, unspecified; J44.1 Chronic obstructive pulmonary disease with (acute) exacerbation; E11.9 Type 2 diabetes mellitus without complications; F17.210 Nicotine dependence, cigarettes, uncomplicated; Z20.822 Contact with and (suspected) exposure to COVID-19; Z82.49 Family history of ischemic heart disease and other diseases of the circulatory system; Z90.710 Acquired absence of both cervix and uterus; Z90.49 Acquired absence of other specified parts of digestive tract; Z88.5 Allergy status to narcotic agent; Z88.2 Allergy status to sulfonamides; Z68.36 Body mass index [BMI] 36.0-36.9, adult
CPT/HCPCS: 36415; 36600; 70450; 71045; 80048; 80053; 80307; 81001; 82140; 82805; 82962; 83880; 84484; 85007; 85025; 85027; 85610; 85730; 87081; 87426; 93005; 94640; 94660; 96374; 96375; 99291; G0378

== ENCOUNTER 2021-11-01 14:01 | Inpatient (IN) | payer MEDICAID ==
[~2021-11-01] VITALS: Ht 167.6 cm; Wt 93.5 kg
[2021-11-01] VITALS (23 sets, daily range): BP systolic 96–131; BP diastolic 54–98
[~2021-11-01 14:01] MED LIST changes: -DOXY-332 PO; +LEVO500T31 PO; -PRAV20TA3 PO
[2021-11-01] MEDS ORDERED: cefTRIAXone 1GM/50ML D5W 50 ML IV ONE (14:30)
[2021-11-01] MEDS ORDERED: SODIUM CHLORIDE 0.9% 1,000 ML IV ONE (14:30)
[2021-11-01] MEDS ORDERED: AZITHROMYCIN 250 MG TAB PO ONE (14:30)
[2021-11-01 15:19] LABS: Urine Bacteria MANY /hpf (None Seen); Urine Blood Negative /uL (Negative); Urine Specific Gravity 1.003 (1.001-1.035); Urine WBC 43 /hpf (0 - 5)
[2021-11-01 15:28] LABS: Basophils # (auto) 0 10 ^3/uL (0-0.2); Basophils % (auto) 0.3 % (0.0-2.0); Eosinophils # (auto) 0.1 10 ^3/uL (0-0.8); Eosinophils % (auto) 1.6 % (0.0-7.0); Hematocrit 47.6 % (36.0-46.0); Hemoglobin 15.9 g/dL (12.2-16.2); Lymphocytes # (auto) 1.6 10 ^3/uL (0.4-5.4); Lymphocytes % (auto) 25.2 % (10.0-50.0); Mean Corpuscular Hemoglobin 29.7 pg (28.0-32.0); Mean Corpuscular Hgb Conc. 33.5 g/dL (32.0-36.0); Mean Corpuscular Volume 88.8 fL (80.0-100.0); Monocytes # (auto) 0.5 10 ^3/uL (0-1.3); Monocytes % (auto) 7.5 % (0.0-12.0); Neutrophils # (auto) 4.1 10 ^3/uL (1.6-8.6); Neutrophils % (auto) 65.4 % (37.0-80.0); Nucleated Red Blood Cells % 0.9 %; Red Blood Cells 5.36 10^6/uL (4.0-5.20); Red Cell Distribution Width 14.8 % (11.8-14.3); White Blood Cell 6.3 10^3/uL (4.4-10.8)
[2021-11-01] MEDS ORDERED: ROCURONIUM 10MG/ML 10ML VIAL IV ONE ×2 (15:30→15:31)
[2021-11-01] MEDS ORDERED: ETOMIDATE (2MG/ML) 20ML VIAL IV ONE ×2 (15:30→15:31)
[2021-11-01] MEDS ORDERED: MIDAZOLAM HCL 5 MG/ML-1ML VIAL IV ONE (15:30)
[2021-11-01 15:44] LABS: Albumin 3.6 g/dL (3.4-5.0); Calcium 8.2 mg/dL (8.5-10.1); Potassium 3.5 mmol/L (3.5-5.1)
[2021-11-01] MEDS: PROPOFOL 100 ML IV SCH (15:45)
[2021-11-01 15:47] LABS: BUN/Creatinine Ratio 7.2; Bilirubin, Total 0.6 mg/dL (0.2-1.0); Total Protein 6.4 g/dL (6.4-8.2)
[2021-11-01] MEDS: MIDAZOLAM DRIP 50 mg/50mL 50 ML IV SCH ×2 (16:15→20:22)
[2021-11-01] MEDS ORDERED: AZITHROMYCIN 500MG/ 250ML 250 ML IV ONE (17:15)
[2021-11-01] MEDS ORDERED: IPRATROPIUM BROM 0.5 MG/2.5ML INH SOL NEB PRN (18:30)
[2021-11-01] MEDS ORDERED: methylPREDNISolone SOD SUCC 125 MG/2 ML VL IV ONE (18:30)
[2021-11-01] MEDS ORDERED: ALBUTEROL SULF 2.5 MG/0.5ML(0.5%) NEB SOLN NEB PRN (18:30)
[2021-11-01] MEDS ORDERED: DEXTROSE (50%) 50ML SYRG IV PRN (18:30)
[2021-11-01 18:54] LABS: Cholesterol 119 mg/dL (< 200); HDL Cholesterol 42 mg/dL (40-59); LDL Cholesterol 71 mg/dL (< 100); Triglycerides 183 mg/dL (< 150)
[2021-11-01 19:12] LABS: Amphetamine Screen, Urine NEGATIVE (NEGATIVE); Barbiturate Scree,Urine NEGATIVE (NEGATIVE); Benzodiazephine Screen, Urine POSITIVE (NEGATIVE); Cannabinoid Screen, Urine NEGATIVE (NEGATIVE); Cocaine Screen, Urine NEGATIVE (NEGATIVE); Opiate Scree,Urine NEGATIVE (NEGATIVE); Phencyclidine Screen, Urine NEGATIVE (NEGATIVE)
[2021-11-01] MEDS: ACCU-CHEK COMFORT CURVE STRIP VI SCH (23:54)
[2021-11-01] MEDS: InsuLIN REG 1unit/0.01ml Soln (100units/ml) SC SCH (23:56)
[2021-11-02] VITALS (105 sets, daily range): BP systolic 105–151; BP diastolic 62–102
[2021-11-02] MEDS: MIDAZOLAM DRIP 50 mg/50mL 50 ML IV SCH ×6 (01:32→20:52)
[2021-11-02 05:33] LABS: Albumin 3.1 g/dL (3.4-5.0); Calcium 8.6 mg/dL (8.5-10.1); Potassium 3.5 mmol/L (3.5-5.1)
[2021-11-02 05:36] LABS: Bilirubin, Total 0.6 mg/dL (0.2-1.0)
[2021-11-02] MEDS: methylPREDNISolone SOD SUCC 40 MG/ML VL IV SCH ×3 (05:40→22:06)
[2021-11-02] MEDS: ACCU-CHEK COMFORT CURVE STRIP VI SCH ×4 (05:40→23:33)
[2021-11-02 05:44] LABS: Basophils # (auto) 0 10 ^3/uL (0-0.2); Basophils % (auto) 0.2 % (0.0-2.0); Eosinophils # (auto) 0 10 ^3/uL (0-0.8); Eosinophils % (auto) 0.1 % (0.0-7.0); Hematocrit 43.6 % (36.0-46.0); Hemoglobin 14.8 g/dL (12.2-16.2); Lymphocytes # (auto) 0.6 10 ^3/uL (0.4-5.4); Lymphocytes % (auto) 6.9 % (10.0-50.0); Mean Corpuscular Hemoglobin 29.5 pg (28.0-32.0); Mean Corpuscular Hgb Conc. 33.9 g/dL (32.0-36.0); Mean Corpuscular Volume 87.2 fL (80.0-100.0); Monocytes # (auto) 0.1 10 ^3/uL (0-1.3); Monocytes % (auto) 1.6 % (0.0-12.0); Neutrophils # (auto) 8.3 10 ^3/uL (1.6-8.6); Neutrophils % (auto) 91.2 % (37.0-80.0); Nucleated Red Blood Cells % 0.4 %; Red Cell Distribution Width 14.3 % (11.8-14.3); White Blood Cell 9.1 10^3/uL (4.4-10.8)
[2021-11-02] MEDS: InsuLIN REG 1unit/0.01ml Soln (100units/ml) SC SCH ×4 (05:46→23:34)
[2021-11-02] MEDS: ALBUTEROL SULF 2.5 MG/0.5ML(0.5%) NEB SOLN NEB SCH ×3 (06:16→18:24)
[2021-11-02] MEDS: IPRATROPIUM BROM 0.5 MG/2.5ML INH SOL NEB SCH ×3 (06:17→18:24)
[2021-11-02] MEDS: ENOXAPARIN SOD 40 MG/0.4 ML SYRINGE SC SCH (09:52)
[2021-11-02] MEDS: AZITHROMYCIN 500MG/ 250ML 250 ML IV SCH (09:53)
[2021-11-02] MEDS: cefTRIAXone 1GM/50ML D5W 50 ML IV SCH (09:53)
[2021-11-02] MEDS ORDERED: OPTISON 3ml Vial for INJ IV ONE (10:16)
[2021-11-02] MEDS ORDERED: ACETAMINOPHEN 500 MG TAB PO PRN (15:30)
[2021-11-02] MEDS: PROPOFOL 100 ML IV SCH (15:45)
[2021-11-03] VITALS (105 sets, daily range): BP systolic 91–158; BP diastolic 46–97
[2021-11-03] MEDS: MIDAZOLAM DRIP 50 mg/50mL 50 ML IV SCH ×7 (00:25→20:33)
[2021-11-03] MEDS: IPRATROPIUM BROM 0.5 MG/2.5ML INH SOL NEB SCH ×4 (00:28→18:45)
[2021-11-03] MEDS: ALBUTEROL SULF 2.5 MG/0.5ML(0.5%) NEB SOLN NEB SCH ×4 (00:28→18:45)
[2021-11-03 04:51] LABS: Basophils # (auto) 0 10 ^3/uL (0-0.2); Basophils % (auto) 0.3 % (0.0-2.0); Eosinophils # (auto) 0 10 ^3/uL (0-0.8); Hematocrit 42.7 % (36.0-46.0); Hemoglobin 14.2 g/dL (12.2-16.2); Lymphocytes # (auto) 0.3 10 ^3/uL (0.4-5.4); Lymphocytes % (auto) 3.3 % (10.0-50.0); Mean Corpuscular Hemoglobin 29.6 pg (28.0-32.0); Mean Corpuscular Hgb Conc. 33.2 g/dL (32.0-36.0); Monocytes # (auto) 0.4 10 ^3/uL (0-1.3); Monocytes % (auto) 3.9 % (0.0-12.0); Neutrophils # (auto) 9.6 10 ^3/uL (1.6-8.6); Neutrophils % (auto) 92.5 % (37.0-80.0); Nucleated Red Blood Cells % 0.1 %; Red Blood Cells 4.79 10^6/uL (4.0-5.20); Red Cell Distribution Width 14.6 % (11.8-14.3); White Blood Cell 10.4 10^3/uL (4.4-10.8)
[2021-11-03 05:11] LABS: BUN/Creatinine Ratio 15.6; Calcium 8.7 mg/dL (8.5-10.1); Potassium 3.2 mmol/L (3.5-5.1)
[2021-11-03] MEDS: ACCU-CHEK COMFORT CURVE STRIP VI SCH ×4 (06:07→23:28)
[2021-11-03] MEDS: InsuLIN REG 1unit/0.01ml Soln (100units/ml) SC SCH ×4 (06:09→23:30)
[2021-11-03] MEDS ORDERED: POTASSIUM CHL 20MEQ/100ML 100 ML IV ONE (06:45)
[2021-11-03] MEDS: AZITHROMYCIN 500MG/ 250ML 250 ML IV SCH (09:26)
[2021-11-03] MEDS: methylPREDNISolone SOD SUCC 40 MG/ML VL IV SCH ×2 (09:26→21:34)
[2021-11-03] MEDS: PANTOPRAZOLE 40 MG/10 ML VIAL INJ IV SCH (09:26)
[2021-11-03] MEDS: PROPOFOL 100 ML IV SCH (09:35)
[2021-11-03] MEDS: ENOXAPARIN SOD 40 MG/0.4 ML SYRINGE SC SCH (09:59)
[2021-11-03] MEDS: cefTRIAXone 1GM/50ML D5W 50 ML IV SCH (09:59)
[2021-11-03] MEDS ORDERED: FUROSEMIDE 40 MG/4 ML VIAL IV ONE (11:45)
[2021-11-03] MEDS: POTASSIUM CHL 20MEQ/100ML 100 ML IV SCH ×2 (12:31→15:35)
[2021-11-03] MEDS: INSULIN LANTUS (GLARGINE) 1 /0.01ml (100units/ml) SC SCH (21:39)
[2021-11-04] VITALS (107 sets, daily range): BP systolic 135–162; BP diastolic 69–101
[2021-11-04] MEDS: PROPOFOL 100 ML IV SCH ×6 (00:09→22:46)
[2021-11-04] MEDS: MIDAZOLAM DRIP 50 mg/50mL 50 ML IV SCH ×5 (00:10→22:45)
[2021-11-04] MEDS: ALBUTEROL SULF 2.5 MG/0.5ML(0.5%) NEB SOLN NEB SCH ×4 (01:04→18:37)
[2021-11-04] MEDS: IPRATROPIUM BROM 0.5 MG/2.5ML INH SOL NEB SCH ×4 (01:04→18:37)
[2021-11-04 04:09] LABS: Basophils # (auto) 0 10 ^3/uL (0-0.2); Basophils % (auto) 0.2 % (0.0-2.0); Eosinophils # (auto) 0 10 ^3/uL (0-0.8); Hematocrit 44.6 % (36.0-46.0); Hemoglobin 14.7 g/dL (12.2-16.2); Lymphocytes # (auto) 0.4 10 ^3/uL (0.4-5.4); Lymphocytes % (auto) 4.3 % (10.0-50.0); Mean Corpuscular Hemoglobin 28.9 pg (28.0-32.0); Mean Corpuscular Volume 87.8 fL (80.0-100.0); Monocytes # (auto) 0.4 10 ^3/uL (0-1.3); Monocytes % (auto) 3.5 % (0.0-12.0); Neutrophils # (auto) 9.4 10 ^3/uL (1.6-8.6); Nucleated Red Blood Cells % 0.1 %; Red Blood Cells 5.08 10^6/uL (4.0-5.20); Red Cell Distribution Width 14.9 % (11.8-14.3); White Blood Cell 10.3 10^3/uL (4.4-10.8)
[2021-11-04 04:25] LABS: BUN/Creatinine Ratio 24.6; Calcium 8.9 mg/dL (8.5-10.1); Potassium 3.8 mmol/L (3.5-5.1)
[2021-11-04] MEDS: ACCU-CHEK COMFORT CURVE STRIP VI SCH ×4 (06:27→23:44)
[2021-11-04] MEDS: INSULIN LANTUS (GLARGINE) 1 /0.01ml (100units/ml) SC SCH ×2 (06:28→22:15)
[2021-11-04] MEDS: InsuLIN REG 1unit/0.01ml Soln (100units/ml) SC SCH ×4 (06:28→23:41)
[2021-11-04] MEDS: cefTRIAXone 1GM/50ML D5W 50 ML IV SCH (09:00)
[2021-11-04] MEDS: POTASSIUM EFFERVESENT TAB 25 MEQ GT SCH (09:33)
[2021-11-04] MEDS: PANTOPRAZOLE 40 MG/10 ML VIAL INJ IV SCH (09:33)
[2021-11-04] MEDS: FUROSEMIDE 40 MG/4 ML VIAL IV SCH (09:33)
[2021-11-04] MEDS: AZITHROMYCIN 500MG/ 250ML 250 ML IV SCH (09:33)
[2021-11-04] MEDS: methylPREDNISolone SOD SUCC 40 MG/ML VL IV SCH ×2 (09:34→21:57)
[2021-11-04] MEDS: ENOXAPARIN SOD 40 MG/0.4 ML SYRINGE SC SCH (09:34)
[2021-11-05] VITALS (104 sets, daily range): BP systolic 96–163; BP diastolic 53–108
[2021-11-05] MEDS: ALBUTEROL SULF 2.5 MG/0.5ML(0.5%) NEB SOLN NEB SCH ×4 (00:06→19:01)
[2021-11-05] MEDS: IPRATROPIUM BROM 0.5 MG/2.5ML INH SOL NEB SCH ×4 (00:07→19:01)
[2021-11-05 03:58] LABS: Basophils # (auto) 0 10 ^3/uL (0-0.2); Basophils % (auto) 0.2 % (0.0-2.0); Eosinophils # (auto) 0 10 ^3/uL (0-0.8); Hematocrit 45.8 % (36.0-46.0); Hemoglobin 15.2 g/dL (12.2-16.2); Lymphocytes # (auto) 0.6 10 ^3/uL (0.4-5.4); Lymphocytes % (auto) 6.9 % (10.0-50.0); Mean Corpuscular Hemoglobin 29.2 pg (28.0-32.0); Mean Corpuscular Hgb Conc. 33.1 g/dL (32.0-36.0); Mean Corpuscular Volume 88.2 fL (80.0-100.0); Monocytes # (auto) 0.5 10 ^3/uL (0-1.3); Monocytes % (auto) 5.2 % (0.0-12.0); Neutrophils # (auto) 7.7 10 ^3/uL (1.6-8.6); Neutrophils % (auto) 87.7 % (37.0-80.0); Nucleated Red Blood Cells % 0.2 %; Red Blood Cells 5.19 10^6/uL (4.0-5.20); White Blood Cell 8.8 10^3/uL (4.4-10.8)
[2021-11-05 04:16] LABS: BUN/Creatinine Ratio 40.4; Calcium 8.8 mg/dL (8.5-10.1)
[2021-11-05] MEDS: PROPOFOL 100 ML IV SCH ×2 (04:50→20:45)
[2021-11-05] MEDS: InsuLIN REG 1unit/0.01ml Soln (100units/ml) SC SCH ×3 (06:00→23:38)
[2021-11-05] MEDS: ACCU-CHEK COMFORT CURVE STRIP VI SCH ×3 (06:00→23:39)
[2021-11-05] MEDS: INSULIN LANTUS (GLARGINE) 1 /0.01ml (100units/ml) SC SCH ×2 (06:34→21:54)
[2021-11-05] MEDS: cefTRIAXone 1GM/50ML D5W 50 ML IV SCH (08:36)
[2021-11-05] MEDS: FUROSEMIDE 40 MG/4 ML VIAL IV SCH (09:56)
[2021-11-05] MEDS: methylPREDNISolone SOD SUCC 40 MG/ML VL IV SCH ×2 (09:56→21:50)
[2021-11-05] MEDS: POTASSIUM EFFERVESENT TAB 25 MEQ GT SCH (09:56)
[2021-11-05] MEDS: PANTOPRAZOLE 40 MG/10 ML VIAL INJ IV SCH (09:56)
[2021-11-05] MEDS: ENOXAPARIN SOD 40 MG/0.4 ML SYRINGE SC SCH (09:57)
[2021-11-05] MEDS: AZITHROMYCIN 500MG/ 250ML 250 ML IV SCH (09:57)
[2021-11-05] MEDS ORDERED: VANCOMYCIN PER PHARMACY 0 MG IV SCH (12:30)
[2021-11-05] MEDS ORDERED: VANCOMYCIN 1GM/250ML 250 ML IV ONE (13:00)
[2021-11-05] MEDS: MIDAZOLAM DRIP 50 mg/50mL 50 ML IV SCH (19:45)
[2021-11-06] VITALS (70 sets, daily range): BP systolic 96–150; BP diastolic 67–113
[2021-11-06] MEDS: ALBUTEROL SULF 2.5 MG/0.5ML(0.5%) NEB SOLN NEB SCH ×4 (00:29→18:45)
[2021-11-06] MEDS: IPRATROPIUM BROM 0.5 MG/2.5ML INH SOL NEB SCH ×4 (00:29→18:44)
[2021-11-06] MEDS: VANCOMYCIN 1GM/250ML 250 ML IV SCH ×3 (00:32→20:22)
[2021-11-06] MEDS: PROPOFOL 100 ML IV SCH ×2 (00:35→04:46)
[2021-11-06 04:16] LABS: Basophils # (auto) 0 10 ^3/uL (0-0.2); Basophils % (auto) 0.1 % (0.0-2.0); Eosinophils # (auto) 0 10 ^3/uL (0-0.8); Hematocrit 50.9 % (36.0-46.0); Hemoglobin 16.7 g/dL (12.2-16.2); Lymphocytes # (auto) 0.5 10 ^3/uL (0.4-5.4); Lymphocytes % (auto) 5.6 % (10.0-50.0); Mean Corpuscular Hemoglobin 29.9 pg (28.0-32.0); Mean Corpuscular Hgb Conc. 32.7 g/dL (32.0-36.0); Mean Corpuscular Volume 91.3 fL (80.0-100.0); Monocytes # (auto) 0.5 10 ^3/uL (0-1.3); Monocytes % (auto) 5.6 % (0.0-12.0); Neutrophils # (auto) 8.2 10 ^3/uL (1.6-8.6); Neutrophils % (auto) 88.7 % (37.0-80.0); Nucleated Red Blood Cells % 0.1 %; Red Blood Cells 5.58 10^6/uL (4.0-5.20); Red Cell Distribution Width 15.4 % (11.8-14.3); White Blood Cell 9.3 10^3/uL (4.4-10.8)
[2021-11-06 05:11] LABS: BUN/Creatinine Ratio 47.7; Calcium 9.3 mg/dL (8.5-10.1)
[2021-11-06] MEDS: MIDAZOLAM DRIP 50 mg/50mL 50 ML IV SCH ×2 (05:45→15:45)
[2021-11-06] MEDS: InsuLIN REG 1unit/0.01ml Soln (100units/ml) SC SCH ×3 (05:53→18:10)
[2021-11-06] MEDS: ACCU-CHEK COMFORT CURVE STRIP VI SCH ×3 (05:54→18:10)
[2021-11-06] MEDS ORDERED: ONDANSETRON HCL 4 MG/2 ML VIAL IV PRN ×2 (06:30→17:15)
[2021-11-06] MEDS ORDERED: ONDANSETRON HCL 4 MG/2 ML VIAL ONE (06:31)
[2021-11-06] MEDS: INSULIN LANTUS (GLARGINE) 1 /0.01ml (100units/ml) SC SCH ×2 (06:38→21:56)
[2021-11-06] MEDS: cefTRIAXone 1GM/50ML D5W 50 ML IV SCH (08:56)
[2021-11-06] MEDS: FUROSEMIDE 40 MG/4 ML VIAL IV SCH (09:51)
[2021-11-06] MEDS: methylPREDNISolone SOD SUCC 40 MG/ML VL IV SCH ×2 (09:51→21:49)
[2021-11-06] MEDS: POTASSIUM EFFERVESENT TAB 25 MEQ GT SCH (10:00)
[2021-11-06] MEDS: ENOXAPARIN SOD 40 MG/0.4 ML SYRINGE SC SCH (10:00)
[2021-11-06 10:18] LABS: INR 1.04 (0.9-1.15); Partial Thromboplastin Time 21.5 sec (24.6-33.4)
[2021-11-06] MEDS: PANTOPRAZOLE 40mg/50ML NS AE 50 ML IV SCH ×3 (10:23→19:25)
[2021-11-06] MEDS ORDERED: EPINEPHrine HCL 0.5 ML NEB ONE (10:48)
[2021-11-06] MEDS ORDERED: EPINEPHrine HCL 0.5 ML NEB NEB ONE (11:00)
[2021-11-06] MEDS: AZITHROMYCIN 500MG/ 250ML 250 ML IV SCH (11:04)
[2021-11-06 14:20] LABS: Basophils # (auto) 0 10 ^3/uL (0-0.2); Basophils % (auto) 0.3 % (0.0-2.0); Eosinophils # (auto) 0 10 ^3/uL (0-0.8); Hematocrit 49.8 % (36.0-46.0); Hemoglobin 16.4 g/dL (12.2-16.2); Lymphocytes # (auto) 0.6 10 ^3/uL (0.4-5.4); Lymphocytes % (auto) 4.8 % (10.0-50.0); Mean Corpuscular Hemoglobin 29.1 pg (28.0-32.0); Mean Corpuscular Hgb Conc. 32.8 g/dL (32.0-36.0); Mean Corpuscular Volume 88.7 fL (80.0-100.0); Monocytes % (auto) 8.2 % (0.0-12.0); Neutrophils % (auto) 86.7 % (37.0-80.0); Nucleated Red Blood Cells % 0.1 %; Red Blood Cells 5.62 10^6/uL (4.0-5.20); Red Cell Distribution Width 15.2 % (11.8-14.3); White Blood Cell 12.7 10^3/uL (4.4-10.8)
[2021-11-07] VITALS (24 sets, daily range): BP systolic 109–132; BP diastolic 70–90
[2021-11-07] MEDS: IPRATROPIUM BROM 0.5 MG/2.5ML INH SOL NEB SCH ×2 (00:43→19:47)
[2021-11-07] MEDS: ALBUTEROL SULF 2.5 MG/0.5ML(0.5%) NEB SOLN NEB SCH ×2 (00:43→19:47)
[2021-11-07] MEDS: InsuLIN REG 1unit/0.01ml Soln (100units/ml) SC SCH ×5 (00:45→23:35)
[2021-11-07] MEDS: PANTOPRAZOLE 40mg/50ML NS AE 50 ML IV SCH ×5 (00:46→20:07)
[2021-11-07] MEDS: MIDAZOLAM DRIP 50 mg/50mL 50 ML IV SCH ×3 (01:45→21:45)
[2021-11-07 03:41] LABS: Basophils # (auto) 0 10 ^3/uL (0-0.2); Eosinophils # (auto) 0 10 ^3/uL (0-0.8); Nucleated Red Blood Cells % 0.4 %
[2021-11-07 03:43] LABS: Basophils % (auto) 0.3 % (0.0-2.0); Eosinophils % (auto) 0.1 % (0.0-7.0); Hematocrit 52.2 % (36.0-46.0); Hemoglobin 17.9 g/dL (12.2-16.2); Lymphocytes % (auto) 7.5 % (10.0-50.0); Mean Corpuscular Hemoglobin 30.5 pg (28.0-32.0); Mean Corpuscular Hgb Conc. 34.3 g/dL (32.0-36.0); Mean Corpuscular Volume 89.1 fL (80.0-100.0); Monocytes # (auto) 0.9 10 ^3/uL (0-1.3); Monocytes % (auto) 7.2 % (0.0-12.0); Neutrophils % (auto) 84.9 % (37.0-80.0); Red Blood Cells 5.85 10^6/uL (4.0-5.20); Red Cell Distribution Width 15.2 % (11.8-14.3); White Blood Cell 12.9 10^3/uL (4.4-10.8)
[2021-11-07 03:56] LABS: BUN/Creatinine Ratio 45.7; Calcium 9.6 mg/dL (8.5-10.1); Potassium 3.9 mmol/L (3.5-5.1)
[2021-11-07] MEDS: VANCOMYCIN 1GM/250ML 250 ML IV SCH ×2 (05:48→16:06)
[2021-11-07] MEDS: ACCU-CHEK COMFORT CURVE STRIP VI SCH ×5 (05:50→23:33)
[2021-11-07] MEDS: INSULIN LANTUS (GLARGINE) 1 /0.01ml (100units/ml) SC SCH ×2 (06:31→21:36)
[2021-11-07] MEDS: cefTRIAXone 1GM/50ML D5W 50 ML IV SCH (08:38)
[2021-11-07] MEDS: POTASSIUM EFFERVESENT TAB 25 MEQ GT SCH (08:38)
[2021-11-07] MEDS: ENOXAPARIN SOD 40 MG/0.4 ML SYRINGE SC SCH (10:00)
[2021-11-07] MEDS: methylPREDNISolone SOD SUCC 40 MG/ML VL IV SCH ×2 (10:11→21:36)
[2021-11-07] MEDS: AZITHROMYCIN 500MG/ 250ML 250 ML IV SCH (10:11)
[2021-11-07] MEDS: FUROSEMIDE 40 MG/4 ML VIAL IV SCH (10:11)
[2021-11-07] MEDS ORDERED: LORazepam 2MG/ML-1ML VIAL IV ONE (10:45)
[2021-11-07] MEDS: PROPOFOL 100 ML IV SCH (13:09)
[2021-11-07] MEDS: LORazepam 2MG/ML-1ML VIAL IV PRN (16:17)
[2021-11-08] VITALS (25 sets, daily range): BP systolic 94–125; BP diastolic 53–85
[2021-11-08] MEDS: PANTOPRAZOLE 40mg/50ML NS AE 50 ML IV SCH ×4 (00:26→14:31)
[2021-11-08] MEDS: ALBUTEROL SULF 2.5 MG/0.5ML(0.5%) NEB SOLN NEB SCH ×4 (00:33→19:36)
[2021-11-08] MEDS: IPRATROPIUM BROM 0.5 MG/2.5ML INH SOL NEB SCH ×4 (00:33→19:36)
[2021-11-08] MEDS: ACCU-CHEK COMFORT CURVE STRIP VI SCH ×4 (06:22→23:41)
[2021-11-08] MEDS: InsuLIN REG 1unit/0.01ml Soln (100units/ml) SC SCH ×4 (06:25→23:43)
[2021-11-08] MEDS: INSULIN LANTUS (GLARGINE) 1 /0.01ml (100units/ml) SC SCH ×2 (06:26→21:57)
[2021-11-08] MEDS: MIDAZOLAM DRIP 50 mg/50mL 50 ML IV SCH (07:45)
[2021-11-08] MEDS: LORazepam 2MG/ML-1ML VIAL IV PRN ×2 (09:02→19:15)
[2021-11-08] MEDS: ENOXAPARIN SOD 40 MG/0.4 ML SYRINGE SC SCH (09:03)
[2021-11-08] MEDS: cefTRIAXone 1GM/50ML D5W 50 ML IV SCH (09:03)
[2021-11-08] MEDS: POTASSIUM EFFERVESENT TAB 25 MEQ GT SCH (09:03)
[2021-11-08] MEDS: methylPREDNISolone SOD SUCC 40 MG/ML VL IV SCH (09:03)
[2021-11-08] MEDS: FUROSEMIDE 40 MG/4 ML VIAL IV SCH (09:03)
[2021-11-08] MEDS: PANTOPRAZOLE 40 MG TAB PO SCH (21:52)
[2021-11-09] VITALS (25 sets, daily range): BP systolic 100–139; BP diastolic 55–84
[2021-11-09] MEDS: IPRATROPIUM BROM 0.5 MG/2.5ML INH SOL NEB SCH ×4 (00:31→18:09)
[2021-11-09] MEDS: ALBUTEROL SULF 2.5 MG/0.5ML(0.5%) NEB SOLN NEB SCH ×4 (00:31→18:09)
[2021-11-09 04:01] LABS: Basophils # (auto) 0.1 10 ^3/uL (0-0.2); Basophils % (auto) 0.5 % (0.0-2.0); Eosinophils # (auto) 0.1 10 ^3/uL (0-0.8); Hematocrit 50.7 % (36.0-46.0); Hemoglobin 16.9 g/dL (12.2-16.2); Lymphocytes # (auto) 1.5 10 ^3/uL (0.4-5.4); Lymphocytes % (auto) 10.4 % (10.0-50.0); Mean Corpuscular Hemoglobin 29.8 pg (28.0-32.0); Mean Corpuscular Hgb Conc. 33.4 g/dL (32.0-36.0); Mean Corpuscular Volume 89.1 fL (80.0-100.0); Monocytes # (auto) 1.2 10 ^3/uL (0-1.3); Monocytes % (auto) 8.6 % (0.0-12.0); Neutrophils # (auto) 11.2 10 ^3/uL (1.6-8.6); Neutrophils % (auto) 79.5 % (37.0-80.0); Nucleated Red Blood Cells % 0.1 %; Red Blood Cells 5.69 10^6/uL (4.0-5.20); White Blood Cell 14.1 10^3/uL (4.4-10.8)
[2021-11-09 04:20] LABS: Calcium 9.3 mg/dL (8.5-10.1); Potassium 3.3 mmol/L (3.5-5.1)
[2021-11-09] MEDS: LORazepam 2MG/ML-1ML VIAL IV PRN ×3 (04:58→22:52)
[2021-11-09] MEDS: InsuLIN REG 1unit/0.01ml Soln (100units/ml) SC SCH ×3 (06:00→17:38)
[2021-11-09] MEDS: ACCU-CHEK COMFORT CURVE STRIP VI SCH ×3 (06:18→17:36)
[2021-11-09] MEDS: INSULIN LANTUS (GLARGINE) 1 /0.01ml (100units/ml) SC SCH ×2 (06:21→23:06)
[2021-11-09] MEDS ORDERED: predniSONE 20 MG TAB PO SCH (10:00)
[2021-11-09] MEDS: cefTRIAXone 1GM/50ML D5W 50 ML IV SCH (10:14)
[2021-11-09] MEDS: FUROSEMIDE 40 MG TAB PO SCH (10:15)
[2021-11-09] MEDS: PANTOPRAZOLE 40 MG TAB PO SCH ×2 (10:15→22:52)
[2021-11-09] MEDS: POTASSIUM CHL 20 Meq TABLET PO SCH (10:15)
[2021-11-09] MEDS: ENOXAPARIN SOD 40 MG/0.4 ML SYRINGE SC SCH (10:15)
[2021-11-09] MEDS ORDERED: POTASSIUM CHL 20 Meq TABLET PO ONE (13:15)
[2021-11-09] MEDS: traMADol HCL 50 MG TAB PO PRN (13:25)
[2021-11-10] VITALS (24 sets, daily range): BP systolic 100–137; BP diastolic 62–84
[2021-11-10] MEDS: ACCU-CHEK COMFORT CURVE STRIP VI SCH ×4 (00:21→18:28)
[2021-11-10] MEDS: IPRATROPIUM BROM 0.5 MG/2.5ML INH SOL NEB SCH ×5 (00:25→18:31)
[2021-11-10] MEDS: InsuLIN REG 1unit/0.01ml Soln (100units/ml) SC SCH ×4 (00:25→18:27)
[2021-11-10] MEDS: ALBUTEROL SULF 2.5 MG/0.5ML(0.5%) NEB SOLN NEB SCH ×5 (00:25→18:31)
[2021-11-10] MEDS: traMADol HCL 50 MG TAB PO PRN ×3 (01:30→15:46)
[2021-11-10 06:00] LABS: Basophils # (auto) 0 10 ^3/uL (0-0.2); Basophils % (auto) 0.3 % (0.0-2.0); Eosinophils # (auto) 0.1 10 ^3/uL (0-0.8); Eosinophils % (auto) 0.7 % (0.0-7.0); Hemoglobin 16.5 g/dL (12.2-16.2); Lymphocytes # (auto) 1.8 10 ^3/uL (0.4-5.4); Lymphocytes % (auto) 12.5 % (10.0-50.0); Mean Corpuscular Hemoglobin 29.2 pg (28.0-32.0); Mean Corpuscular Hgb Conc. 32.9 g/dL (32.0-36.0); Mean Corpuscular Volume 88.7 fL (80.0-100.0); Monocytes # (auto) 1.4 10 ^3/uL (0-1.3); Monocytes % (auto) 10.1 % (0.0-12.0); Neutrophils # (auto) 10.9 10 ^3/uL (1.6-8.6); Neutrophils % (auto) 76.4 % (37.0-80.0); Nucleated Red Blood Cells % 0.2 %; Red Blood Cells 5.64 10^6/uL (4.0-5.20); Red Cell Distribution Width 15.1 % (11.8-14.3); White Blood Cell 14.2 10^3/uL (4.4-10.8)
[2021-11-10 06:03] LABS: Calcium 8.9 mg/dL (8.5-10.1); Potassium 3.9 mmol/L (3.5-5.1)
[2021-11-10] MEDS: INSULIN LANTUS (GLARGINE) 1 /0.01ml (100units/ml) SC SCH ×2 (06:40→23:11)
[2021-11-10] MEDS: LORazepam 2MG/ML-1ML VIAL IV PRN ×2 (08:17→22:19)
[2021-11-10] MEDS: cefTRIAXone 1GM/50ML D5W 50 ML IV SCH (08:17)
[2021-11-10] MEDS: POTASSIUM CHL 20 Meq TABLET PO SCH (09:45)
[2021-11-10] MEDS: FUROSEMIDE 40 MG TAB PO SCH (09:46)
[2021-11-10] MEDS: ENOXAPARIN SOD 40 MG/0.4 ML SYRINGE SC SCH (09:46)
[2021-11-10] MEDS: PANTOPRAZOLE 40 MG TAB PO SCH ×2 (09:46→22:18)
[2021-11-10] MEDS ORDERED: predniSONE 20 MG TAB PO SCH (10:00)
[2021-11-10] MEDS ORDERED: FLUCONAZOLE 100 MG TAB PO ONE (12:30)
[2021-11-10] MEDS: CARVEDILOL 3.125 MG TAB PO SCH (22:18)
[2021-11-10] MEDS: ATORVASTATIN 20 MG TAB PO SCH (22:18)
[2021-11-11] VITALS (14 sets, daily range): BP systolic 110–134; BP diastolic 61–78
[2021-11-11] MEDS: ALBUTEROL SULF 2.5 MG/0.5ML(0.5%) NEB SOLN NEB SCH ×5 (00:35→17:45)
[2021-11-11] MEDS: IPRATROPIUM BROM 0.5 MG/2.5ML INH SOL NEB SCH ×5 (00:35→17:44)
[2021-11-11 05:34] LABS: Basophils # (auto) 0 10 ^3/uL (0-0.2); Basophils % (auto) 0.2 % (0.0-2.0); Eosinophils # (auto) 0.2 10 ^3/uL (0-0.8); Eosinophils % (auto) 1.2 % (0.0-7.0); Hematocrit 50.8 % (36.0-46.0); Hemoglobin 16.8 g/dL (12.2-16.2); Lymphocytes % (auto) 15.5 % (10.0-50.0); Mean Corpuscular Hemoglobin 29.4 pg (28.0-32.0); Mean Corpuscular Volume 89.3 fL (80.0-100.0); Monocytes # (auto) 1.2 10 ^3/uL (0-1.3); Monocytes % (auto) 9.4 % (0.0-12.0); Neutrophils # (auto) 9.4 10 ^3/uL (1.6-8.6); Neutrophils % (auto) 73.7 % (37.0-80.0); Nucleated Red Blood Cells % 0.2 %; Red Blood Cells 5.69 10^6/uL (4.0-5.20); Red Cell Distribution Width 14.6 % (11.8-14.3); White Blood Cell 12.8 10^3/uL (4.4-10.8)
[2021-11-11] MEDS: ACCU-CHEK COMFORT CURVE STRIP VI SCH ×4 (06:20→17:47)
[2021-11-11] MEDS: INSULIN LANTUS (GLARGINE) 1 /0.01ml (100units/ml) SC SCH ×2 (07:13→22:25)
[2021-11-11] MEDS: InsuLIN REG 1unit/0.01ml Soln (100units/ml) SC SCH ×4 (07:13→17:47)
[2021-11-11] MEDS: LORazepam 2MG/ML-1ML VIAL IV PRN ×3 (08:46→22:21)
[2021-11-11] MEDS: traMADol HCL 50 MG TAB PO PRN ×3 (08:46→22:21)
[2021-11-11] MEDS: PANTOPRAZOLE 40 MG TAB PO SCH ×2 (10:00→22:01)
[2021-11-11] MEDS: CARVEDILOL 3.125 MG TAB PO SCH ×2 (10:00→22:01)
[2021-11-11] MEDS: FUROSEMIDE 40 MG TAB PO SCH (10:00)
[2021-11-11] MEDS: ASPirin 81 mg TAB PO SCH (10:00)
[2021-11-11] MEDS: FLUCONAZOLE 100 MG TAB PO SCH (10:00)
[2021-11-11] MEDS: SERTRALINE HCL 50 MG TAB PO SCH (10:00)
[2021-11-11] MEDS: POTASSIUM CHL 20 Meq TABLET PO SCH (10:00)
[2021-11-11] MEDS: CLOPIDOGREL BISULFATE 75 MG TAB PO SCH (10:00)
[2021-11-11] MEDS: ATORVASTATIN 20 MG TAB PO SCH (22:01)
[2021-11-12] MEDS: ACCU-CHEK COMFORT CURVE STRIP VI SCH ×4 (01:10→18:05)
[2021-11-12] MEDS: LORazepam 2MG/ML-1ML VIAL IV PRN ×2 (04:50→11:18)
[2021-11-12] MEDS: traMADol HCL 50 MG TAB PO PRN ×2 (04:51→11:19)
[2021-11-12 05:00] VITALS: BP 110/81
[2021-11-12] MEDS: IPRATROPIUM BROM 0.5 MG/2.5ML INH SOL NEB SCH ×4 (06:17→18:35)
[2021-11-12] MEDS: ALBUTEROL SULF 2.5 MG/0.5ML(0.5%) NEB SOLN NEB SCH ×4 (06:17→18:35)
[2021-11-12] MEDS: InsuLIN REG 1unit/0.01ml Soln (100units/ml) SC SCH ×4 (06:20→18:06)
[2021-11-12] MEDS: INSULIN LANTUS (GLARGINE) 1 /0.01ml (100units/ml) SC SCH ×2 (06:36→22:23)
[2021-11-12 08:51] VITALS: BP 103/74
[2021-11-12] MEDS: ASPirin 81 mg TAB PO SCH (09:39)
[2021-11-12] MEDS: CARVEDILOL 3.125 MG TAB PO SCH ×2 (09:40→22:21)
[2021-11-12] MEDS: FLUCONAZOLE 100 MG TAB PO SCH (09:41)
[2021-11-12] MEDS: POTASSIUM CHL 20 Meq TABLET PO SCH (09:41)
[2021-11-12] MEDS: CLOPIDOGREL BISULFATE 75 MG TAB PO SCH (09:42)
[2021-11-12] MEDS: FUROSEMIDE 40 MG TAB PO SCH (09:42)
[2021-11-12] MEDS: PANTOPRAZOLE 40 MG TAB PO SCH ×2 (09:43→22:21)
[2021-11-12] MEDS: SERTRALINE HCL 50 MG TAB PO SCH ×2 (09:43→09:51)
[2021-11-12] MEDS ORDERED: predniSONE 20 MG TAB PO SCH (10:00)
[2021-11-12] MEDS ORDERED: levoFLOXacin 500 MG TAB PO SCH (10:00)
[2021-11-12 12:47] VITALS: BP 100/71
[2021-11-12] MEDS ORDERED: PRED20TA2 PO (14:07)
[2021-11-12] MEDS ORDERED: FLUC100T34 PO (14:07)
[2021-11-12] MEDS ORDERED: LEVO-28 PO (14:07)
[2021-11-12] MEDS ORDERED: PANT40TA2 PO (14:12)
[2021-11-12 16:52] VITALS: BP 94/72
[2021-11-12 17:08] VITALS: BP 100/71
[2021-11-12] MEDS: ATORVASTATIN 20 MG TAB PO SCH (22:21)
[2021-11-12 22:49] VITALS: BP 108/72
[2021-11-13] MEDS: ACCU-CHEK COMFORT CURVE STRIP VI SCH ×2 (01:03→05:47)
[2021-11-13] MEDS: InsuLIN REG 1unit/0.01ml Soln (100units/ml) SC SCH ×2 (01:06→05:50)
[2021-11-13] MEDS: traMADol HCL 50 MG TAB PO PRN (03:38)
[2021-11-13 05:30] VITALS: BP 113/71
[2021-11-13] MEDS: INSULIN LANTUS (GLARGINE) 1 /0.01ml (100units/ml) SC SCH (05:53)
[2021-11-13] MEDS: IPRATROPIUM BROM 0.5 MG/2.5ML INH SOL NEB SCH (06:33)
[2021-11-13] MEDS: ALBUTEROL SULF 2.5 MG/0.5ML(0.5%) NEB SOLN NEB SCH (06:33)
== END 2021-11-13 08:30 | disposition home or self-care (01) | DRG 130 ==
LOC: EDBD 14:01 → ER 14:01 → TELE 17:48 → ICU WEST 18:57 → DOU IN ICU 11-09 17:48 → EAST 11-11 18:54
PROVIDERS: ADMIT Registered Nurse; ATTEND Internal Medicine
PROC: 5A1955Z Respiratory Ventilation, Greater than 96 Consecutive Hours (ICD-10-PCS; principal; 2021-11-01)
PROC: 0BH17EZ Insertion of Endotracheal Airway into Trachea, Via Natural or Artificial Opening (ICD-10-PCS; 2021-11-01)
PROC: 06HM33Z Insertion of Infusion Device into Right Femoral Vein, Percutaneous Approach (ICD-10-PCS; 2021-11-01)
PROC: 5A09357 Assistance with Respiratory Ventilation, Less than 24 Consecutive Hours, Continuous Positive Airway Pressure (ICD-10-PCS; 2021-11-06)
DX: J96.02 Acute respiratory failure with hypercapnia (principal); G93.41 Metabolic encephalopathy; I50.23 Acute on chronic systolic (congestive) heart failure; J13 Pneumonia due to Streptococcus pneumoniae; I11.0 Hypertensive heart disease with heart failure; R16.2 Hepatomegaly with splenomegaly, not elsewhere classified; J96.01 Acute respiratory failure with hypoxia; J44.0 Chronic obstructive pulmonary disease with (acute) lower respiratory infection; J44.1 Chronic obstructive pulmonary disease with (acute) exacerbation; N39.0 Urinary tract infection, site not specified; E66.01 Morbid (severe) obesity due to excess calories; E78.5 Hyperlipidemia, unspecified; J98.11 Atelectasis; F32.A Depression, unspecified; E11.9 Type 2 diabetes mellitus without complications; F17.210 Nicotine dependence, cigarettes, uncomplicated; F20.9 Schizophrenia, unspecified; I25.10 Atherosclerotic heart disease of native coronary artery without angina pectoris; Z20.822 Contact with and (suspected) exposure to COVID-19; Z82.49 Family history of ischemic heart disease and other diseases of the circulatory system; Z87.440 Personal history of urinary (tract) infections; Z90.5 Acquired absence of kidney; Z90.710 Acquired absence of both cervix and uterus; Z91.19 Patient's noncompliance with other medical treatment and regimen; Z95.5 Presence of coronary angioplasty implant and graft; Z88.5 Allergy status to narcotic agent; Z88.2 Allergy status to sulfonamides; Z68.38 Body mass index [BMI] 38.0-38.9, adult; Z79.84 Long term (current) use of oral hypoglycemic drugs
CPT/HCPCS: 31500; 36415; 36556; 36600; 51702; 70450; 71045; 74176; 80048; 80053; 80061; 80202; 80307; 81001; 82565; 82805; 82962; 83036; 83605; 83880; 84484; 85025; 85610; 85730; 87040; 87070; 87077; 87081; 87086; 87186; 87205; 93005; 93306; 93886; 94002; 94003; 94640; 94660; 96361; 96365; 96375; 97110; 97116; 97163; 97530; C9113; G0378; J0696; J1815; J2250; J2405; J2704; J3480; Q9956

== ENCOUNTER 2021-11-16 15:00 | Inpatient (IN) | payer MEDICAID ==
[~2021-11-16] VITALS: Ht 167.6 cm; Wt 95.7 kg
[~2021-11-16 15:00] MED LIST changes: +FLUC100T34 PO; +LEVO-28 PO; +PANT40TA2 PO
[2021-11-16 16:57] LABS: Basophils # (auto) 0 10 ^3/uL (0-0.2); Basophils % (auto) 0.2 % (0.0-2.0); Eosinophils # (auto) 0 10 ^3/uL (0-0.8); Eosinophils % (auto) 0.1 % (0.0-7.0); Hematocrit 51.2 % (36.0-46.0); Hemoglobin 16.7 g/dL (12.2-16.2); Lymphocytes # (auto) 1.7 10 ^3/uL (0.4-5.4); Lymphocytes % (auto) 11.5 % (10.0-50.0); Mean Corpuscular Hemoglobin 29.4 pg (28.0-32.0); Mean Corpuscular Hgb Conc. 32.6 g/dL (32.0-36.0); Mean Corpuscular Volume 90.1 fL (80.0-100.0); Monocytes # (auto) 0.7 10 ^3/uL (0-1.3); Monocytes % (auto) 4.6 % (0.0-12.0); Neutrophils # (auto) 12.3 10 ^3/uL (1.6-8.6); Neutrophils % (auto) 83.6 % (37.0-80.0); Nucleated Red Blood Cells % 0.2 %; Red Blood Cells 5.68 10^6/uL (4.0-5.20); Red Cell Distribution Width 15.2 % (11.8-14.3); White Blood Cell 14.7 10^3/uL (4.4-10.8)
[2021-11-16 17:15] LABS: Albumin 3.1 g/dL (3.4-5.0); Anion Gap 12 (5-15); Blood Urea Nitrogen 55 mg/dL (7-18); Calcium 8.5 mg/dL (8.5-10.1); Carbon Dioxide 22 mmol/L (21-32); Chloride 93 mmol/L (98-107); Magnesium 2.4 mg/dL (1.6-2.6); Potassium 5.3 mmol/L (3.5-5.1); Sodium 127 mmol/L (136-145)
[2021-11-16 17:19] LABS: Alanine Aminotransferase 71 U/L (13-56); Alkaline Phosphatase 84 U/L (45-117); Aspartate Aminotransferase 64 U/L (15-37); BUN/Creatinine Ratio 25.9; Bilirubin, Total 0.6 mg/dL (0.2-1.0); GFR African American 31 mL/min; GFR Non-African American 26 mL/min; Glucose 203 mg/dL (74-106)
[2021-11-16] MEDS ORDERED: IPRATROPIUM BROM 0.5 MG/2.5ML INH SOL NEB ONE (20:15)
[2021-11-16] MEDS ORDERED: ALBUTEROL SULF 2.5 MG/0.5ML(0.5%) NEB SOLN NEB ONE (20:15)
[2021-11-16] MEDS ORDERED: FUROSEMIDE 40 MG/4 ML VIAL IV ONE (20:15)
[2021-11-16] MEDS ORDERED: methylPREDNISolone SOD SUCC 125 MG/2 ML VL IV ONE (20:15)
[2021-11-16] MEDS ORDERED: PIPERACILLIN-TAZOB 3.375GM 100 ML IV ONE (20:30)
[2021-11-16] MEDS ORDERED: ACETAMINOPHEN 325 MG TAB PO PRN (21:00)
[2021-11-16] MEDS ORDERED: NITROGLYCERIN 0.4 MG SL TAB SL PRN (21:00)
[2021-11-16] MEDS ORDERED: IPRATROPIUM BROM 0.5 MG/2.5ML INH SOL NEB PRN (21:00)
[2021-11-16] MEDS ORDERED: MORPHINE SULFATE INJ 2 MG/ml SYRG IV PRN (21:00)
[2021-11-16] MEDS ORDERED: ALBUTEROL SULF 2.5 MG/0.5ML(0.5%) NEB SOLN NEB PRN (21:00)
[2021-11-16] MEDS ORDERED: SODIUM ZIRCONIUM CYCL 10 GM PAK PO ONE (21:00)
[2021-11-16] MEDS ORDERED: ONDANSETRON HCL 4 MG/2 ML VIAL IV PRN (21:00)
[2021-11-16] MEDS ORDERED: DEXTROSE (50%) 50ML SYRG IV PRN (21:00)
[2021-11-16] MEDS: GABAPENTIN 300 MG CAP PO SCH (21:49)
[2021-11-16] MEDS: CARVEDILOL 3.125 MG TAB PO SCH (21:50)
[2021-11-16] MEDS: ATORVASTATIN 20 MG TAB PO SCH (21:50)
[2021-11-16] MEDS ORDERED: ALBUMIN 25% 100 ML IV ONE (22:30)
[2021-11-16 22:41] LABS: Urine Bacteria NONE SEEN /hpf (None Seen); Urine Blood 2+ /uL (Negative); Urine Hyaline Cast FEW /lpf (0 - 2); Urine Mucus FEW (None Seen); Urine Specific Gravity 1.015 (1.001-1.035); Urine WBC 107 /hpf (0 - 5)
[2021-11-17] MEDS: InsuLIN REG 1unit/0.01ml Soln (100units/ml) SC SCH ×5 (00:05→23:51)
[2021-11-17] MEDS: ACCU-CHEK COMFORT CURVE STRIP VI SCH ×5 (00:05→23:49)
[2021-11-17 05:00] VITALS: BP 104/65
[2021-11-17 07:39] LABS: Basophils # (auto) 0 10 ^3/uL (0-0.2); Basophils % (auto) 0.2 % (0.0-2.0); Eosinophils # (auto) 0 10 ^3/uL (0-0.8); Eosinophils % (auto) 0.1 % (0.0-7.0); Lymphocytes # (auto) 0.6 10 ^3/uL (0.4-5.4); Lymphocytes % (auto) 8.4 % (10.0-50.0); Mean Corpuscular Hemoglobin 29.5 pg (28.0-32.0); Mean Corpuscular Hgb Conc. 33.5 g/dL (32.0-36.0); Mean Corpuscular Volume 88.1 fL (80.0-100.0); Monocytes # (auto) 0.1 10 ^3/uL (0-1.3); Neutrophils # (auto) 6.6 10 ^3/uL (1.6-8.6); Neutrophils % (auto) 90.3 % (37.0-80.0); Red Blood Cells 5.11 10^6/uL (4.0-5.20); Red Cell Distribution Width 14.9 % (11.8-14.3); White Blood Cell 7.3 10^3/uL (4.4-10.8)
[2021-11-17 08:00] LABS: Albumin 3.7 g/dL (3.4-5.0); Potassium 3.9 mmol/L (3.5-5.1)
[2021-11-17 08:04] LABS: BUN/Creatinine Ratio 38.3; Bilirubin, Total 0.6 mg/dL (0.2-1.0); Total Protein 6.4 g/dL (6.4-8.2)
[2021-11-17 09:00] VITALS: BP 105/73
[2021-11-17] MEDS: CLOPIDOGREL BISULFATE 75 MG TAB PO SCH (09:46)
[2021-11-17] MEDS: cefTRIAXone 1GM/50ML D5W 50 ML IV SCH (09:46)
[2021-11-17] MEDS: GABAPENTIN 300 MG CAP PO SCH ×2 (09:46→21:33)
[2021-11-17] MEDS: FUROSEMIDE 40 MG TAB PO SCH (09:47)
[2021-11-17] MEDS: predniSONE 20 MG TAB PO SCH (09:48)
[2021-11-17] MEDS: ASPirin 81 mg TAB PO SCH (09:48)
[2021-11-17] MEDS: PANTOPRAZOLE 40 MG TAB PO SCH (09:49)
[2021-11-17] MEDS: CARVEDILOL 3.125 MG TAB PO SCH ×2 (10:00→21:33)
[2021-11-17] MEDS ORDERED: traMADol HCL 50 MG TAB PO PRN (10:15)
[2021-11-17] MEDS: ALBUTEROL SULF 2.5 MG/0.5ML(0.5%) NEB SOLN NEB SCH ×2 (11:43→18:41)
[2021-11-17] MEDS: IPRATROPIUM BROM 0.5 MG/2.5ML INH SOL NEB SCH ×2 (11:44→18:41)
[2021-11-17 13:00] VITALS: BP 107/66
[2021-11-17 16:54] VITALS: BP 105/62
[2021-11-17] MEDS: traMADol HCL 50 MG TAB PO PRN ×2 (17:50→21:42)
[2021-11-17] MEDS: ATORVASTATIN 20 MG TAB PO SCH (21:33)
[2021-11-17 21:51] VITALS: BP 109/72
[2021-11-18 05:23] VITALS: BP 107/78
[2021-11-18] MEDS: ACCU-CHEK COMFORT CURVE STRIP VI SCH ×4 (05:45→23:48)
[2021-11-18] MEDS: InsuLIN REG 1unit/0.01ml Soln (100units/ml) SC SCH ×4 (05:57→23:55)
[2021-11-18] MEDS: IPRATROPIUM BROM 0.5 MG/2.5ML INH SOL NEB SCH ×3 (06:25→19:16)
[2021-11-18] MEDS: ALBUTEROL SULF 2.5 MG/0.5ML(0.5%) NEB SOLN NEB SCH ×3 (06:25→19:16)
[2021-11-18 06:38] LABS: Basophils # (auto) 0 10 ^3/uL (0-0.2); Basophils % (auto) 0.3 % (0.0-2.0); Eosinophils # (auto) 0 10 ^3/uL (0-0.8); Eosinophils % (auto) 0.3 % (0.0-7.0); Hematocrit 43.7 % (36.0-46.0); Hemoglobin 15.3 g/dL (12.2-16.2); Lymphocytes % (auto) 15.9 % (10.0-50.0); Mean Corpuscular Hemoglobin 30.3 pg (28.0-32.0); Mean Corpuscular Volume 86.4 fL (80.0-100.0); Monocytes # (auto) 0.9 10 ^3/uL (0-1.3); Monocytes % (auto) 7.5 % (0.0-12.0); Neutrophils # (auto) 9.4 10 ^3/uL (1.6-8.6); Red Blood Cells 5.05 10^6/uL (4.0-5.20); Red Cell Distribution Width 14.6 % (11.8-14.3); White Blood Cell 12.3 10^3/uL (4.4-10.8)
[2021-11-18 06:55] LABS: Potassium 3.6 mmol/L (3.5-5.1)
[2021-11-18 07:00] LABS: BUN/Creatinine Ratio 46.3; Calcium 9.5 mg/dL (8.5-10.1)
[2021-11-18] MEDS: traMADol HCL 50 MG TAB PO PRN ×4 (07:10→20:05)
[2021-11-18 08:00] VITALS: BP 101/69
[2021-11-18 09:00] VITALS: BP 101/69
[2021-11-18] MEDS: CLOPIDOGREL BISULFATE 75 MG TAB PO SCH (09:52)
[2021-11-18] MEDS: cefTRIAXone 1GM/50ML D5W 50 ML IV SCH (09:52)
[2021-11-18] MEDS: PANTOPRAZOLE 40 MG TAB PO SCH (09:53)
[2021-11-18] MEDS: predniSONE 20 MG TAB PO SCH (09:53)
[2021-11-18] MEDS: ASPirin 81 mg TAB PO SCH (09:53)
[2021-11-18] MEDS: GABAPENTIN 300 MG CAP PO SCH ×2 (09:53→22:19)
[2021-11-18] MEDS: CARVEDILOL 3.125 MG TAB PO SCH ×2 (09:54→22:19)
[2021-11-18] MEDS: FUROSEMIDE 40 MG TAB PO SCH (09:55)
[2021-11-18 13:00] VITALS: BP 119/71
[2021-11-18 22:00] VITALS: BP 114/80
[2021-11-18] MEDS: ATORVASTATIN 20 MG TAB PO SCH (22:19)
[2021-11-19] MEDS: traMADol HCL 50 MG TAB PO PRN ×5 (02:04→20:30)
[2021-11-19 05:00] VITALS: BP 100/73
[2021-11-19] MEDS: ACCU-CHEK COMFORT CURVE STRIP VI SCH ×3 (05:14→18:14)
[2021-11-19] MEDS: InsuLIN REG 1unit/0.01ml Soln (100units/ml) SC SCH ×3 (05:19→18:16)
[2021-11-19] MEDS: IPRATROPIUM BROM 0.5 MG/2.5ML INH SOL NEB SCH ×3 (06:00→19:14)
[2021-11-19] MEDS: ALBUTEROL SULF 2.5 MG/0.5ML(0.5%) NEB SOLN NEB SCH ×3 (06:00→19:14)
[2021-11-19 09:00] VITALS: BP 100/65
[2021-11-19] MEDS: cefTRIAXone 1GM/50ML D5W 50 ML IV SCH (11:05)
[2021-11-19] MEDS: PANTOPRAZOLE 40 MG TAB PO SCH (11:06)
[2021-11-19] MEDS: ASPirin 81 mg TAB PO SCH (11:06)
[2021-11-19] MEDS: CLOPIDOGREL BISULFATE 75 MG TAB PO SCH (11:07)
[2021-11-19] MEDS: predniSONE 20 MG TAB PO SCH (11:07)
[2021-11-19] MEDS: GABAPENTIN 300 MG CAP PO SCH ×2 (11:07→21:25)
[2021-11-19] MEDS: CARVEDILOL 3.125 MG TAB PO SCH ×2 (11:08→21:25)
[2021-11-19] MEDS: FUROSEMIDE 40 MG TAB PO SCH (11:10)
[2021-11-19 13:00] VITALS: BP_SYST 100; BP_SYST 101; BP_DIAS 63; BP_DIAS 65
[2021-11-19 17:00] VITALS: BP 95/59
[2021-11-19 20:00] VITALS: BP_SYST 106; BP_SYST 95; BP_DIAS 59; BP_DIAS 68
[2021-11-19] MEDS: ATORVASTATIN 20 MG TAB PO SCH (21:25)
[2021-11-19 22:00] VITALS: BP 106/68
[2021-11-20] VITALS (7 sets, daily range): BP systolic 99–108; BP diastolic 60–79
[2021-11-20] MEDS: InsuLIN REG 1unit/0.01ml Soln (100units/ml) SC SCH ×4 (00:13→17:18)
[2021-11-20] MEDS: ACCU-CHEK COMFORT CURVE STRIP VI SCH ×4 (00:18→17:14)
[2021-11-20] MEDS: traMADol HCL 50 MG TAB PO PRN ×4 (02:48→17:44)
[2021-11-20] MEDS: ALBUTEROL SULF 2.5 MG/0.5ML(0.5%) NEB SOLN NEB SCH ×3 (07:15→18:34)
[2021-11-20] MEDS: IPRATROPIUM BROM 0.5 MG/2.5ML INH SOL NEB SCH ×3 (07:15→18:34)
[2021-11-20] MEDS: FUROSEMIDE 40 MG TAB PO SCH (09:23)
[2021-11-20] MEDS: CARVEDILOL 3.125 MG TAB PO SCH ×2 (09:23→21:49)
[2021-11-20] MEDS: PANTOPRAZOLE 40 MG TAB PO SCH (09:23)
[2021-11-20] MEDS: predniSONE 20 MG TAB PO SCH (09:23)
[2021-11-20] MEDS: GABAPENTIN 300 MG CAP PO SCH ×2 (09:24→21:45)
[2021-11-20] MEDS: CLOPIDOGREL BISULFATE 75 MG TAB PO SCH (09:24)
[2021-11-20] MEDS: ASPirin 81 mg TAB PO SCH (09:29)
[2021-11-20] MEDS: NITROFURANTOIN 100 mg CAP PO SCH ×2 (09:54→21:45)
[2021-11-20] MEDS: ATORVASTATIN 20 MG TAB PO SCH (21:45)
[2021-11-21] MEDS: ACCU-CHEK COMFORT CURVE STRIP VI SCH ×3 (00:27→12:06)
[2021-11-21] MEDS: InsuLIN REG 1unit/0.01ml Soln (100units/ml) SC SCH ×3 (00:28→12:15)
[2021-11-21] MEDS: traMADol HCL 50 MG TAB PO PRN ×3 (00:41→12:06)
[2021-11-21 05:30] VITALS: BP 102/71
[2021-11-21] MEDS: IPRATROPIUM BROM 0.5 MG/2.5ML INH SOL NEB SCH ×2 (06:10→11:13)
[2021-11-21] MEDS: ALBUTEROL SULF 2.5 MG/0.5ML(0.5%) NEB SOLN NEB SCH ×2 (06:10→11:14)
[2021-11-21 09:00] VITALS: BP 91/62
[2021-11-21] MEDS: predniSONE 20 MG TAB PO SCH (09:51)
[2021-11-21] MEDS: PANTOPRAZOLE 40 MG TAB PO SCH (09:52)
[2021-11-21] MEDS: CLOPIDOGREL BISULFATE 75 MG TAB PO SCH (09:52)
[2021-11-21] MEDS: ASPirin 81 mg TAB PO SCH (09:52)
[2021-11-21] MEDS: NITROFURANTOIN 100 mg CAP PO SCH (09:52)
[2021-11-21] MEDS: GABAPENTIN 300 MG CAP PO SCH (09:52)
[2021-11-21] MEDS: FUROSEMIDE 40 MG TAB PO SCH (09:53)
[2021-11-21] MEDS: CARVEDILOL 3.125 MG TAB PO SCH (09:53)
[2021-11-21 11:07] VITALS: BP 91/62
[2021-11-21 13:00] VITALS: BP 97/59
== END 2021-11-21 14:40 | DRG 140 ==
LOC: ER 15:00 → EDBD 15:00 → TELE 20:57 → TELE-CENTR 11-17 03:41 → CENTRAL 11-17 19:05
PROVIDERS: ADMIT Nurse Practitioner; ATTEND Nurse Practitioner Acute Care
DX: J44.1 Chronic obstructive pulmonary disease with (acute) exacerbation (principal); J96.21 Acute and chronic respiratory failure with hypoxia; N17.9 Acute kidney failure, unspecified; I50.22 Chronic systolic (congestive) heart failure; I11.0 Hypertensive heart disease with heart failure; E87.1 Hypo-osmolality and hyponatremia; E11.9 Type 2 diabetes mellitus without complications; E78.5 Hyperlipidemia, unspecified; E87.5 Hyperkalemia; F17.210 Nicotine dependence, cigarettes, uncomplicated; N39.0 Urinary tract infection, site not specified; S90.31XA Contusion of right foot, initial encounter; Z20.822 Contact with and (suspected) exposure to COVID-19; M79.89 Other specified soft tissue disorders; E66.9 Obesity, unspecified; I25.10 Atherosclerotic heart disease of native coronary artery without angina pectoris; W18.39XA Other fall on same level, initial encounter; Z82.49 Family history of ischemic heart disease and other diseases of the circulatory system; Z90.710 Acquired absence of both cervix and uterus; Z95.5 Presence of coronary angioplasty implant and graft; Z90.49 Acquired absence of other specified parts of digestive tract; Y93.89 Activity, other specified; Y92.89 Other specified places as the place of occurrence of the external cause; Y99.8 Other external cause status; Z68.34 Body mass index [BMI] 34.0-34.9, adult
CPT/HCPCS: 36415; 71045; 73630; 80048; 80053; 81001; 82962; 83605; 83735; 83880; 84484; 85025; 87081; 93005; 94640; 96365; 96366; 96368; 96375; 97110; 97116; 97163; 97530; G0378; J0696; J1815; J2405; J2543; P9047